=== PATIENT | male | born 1960 | race African-American/Black ===

== ENCOUNTER 2018-01-18 19:27 | Inpatient (IN) | payer MEDICARE, OTHER ==
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
[2018-01-18 21:06] LABS: % EOSINOPHILS 2.2 % (0.0-5.0); % LYMPHOCYTES 32.1 % (20.0-50.0); % MONOCYTES 13.9 % (2.0-10.0); % NEUTROPHILS 51.8 % (40.0-80.0); EOSINOPHILE ABSOLUTE 0.1 Th/cmm (0.1-0.4); HEMATOCRIT 40.5 % (41.0-60); HEMOGLOBIN 13.3 gm/dL (12-16); LYMPHOCYTE ABSOLUTE 2.1 Th/cmm (1.5-3.0); MEAN CELL VOLUME 81.6 fl (80-99); MEAN CORPUSCULAR HEMOGLOBIN 26.8 pg (26.0-30.0); MEAN CORPUSCULAR HGB CONC 32.8 pg (28.0-36.0); MEAN PLATELET VOLUME 10.5 fl; MONOCYTE ABSOLUTE 0.9 Th/cmm (0.3-1.0); NEUTROPHILE ABSOLUTE 3.5 Th/cmm (1.8-8.0); PLATELET COUNT 62 Th/cmm (150-400); RED BLOOD COUNT 4.96 Mil/cmm (4.30-5.70); RED CELL DISTRIBUTION WIDTH 16.4 % (11.5-20.0); WHITE BLOOD COUNT 6.6 Th/cmm (4.8-10.8)
[2018-01-18 21:13] LABS: ANION GAP 17.6 (7.0-16.0); BUN - UREA NITROGEN 24 mg/dL (7-25); CALCIUM SERUM 11.2 mg/dL (8.6-10.3); CARBON DIOXIDE 13.9 mEq/L (21.0-31.0); CHLORIDE 97 mEq/L (98-107); CREATININE - SERUM 1.5 mg/dL (0.7-1.3); GFR AFRICAN-AMERICAN > 60.0 ml/min (>90); GFR NON AFRICAN-AMERICAN 50.9 ml/min; POTASSIUM SERUM 4.5 mEq/L (3.5-5.1); SODIUM SERUM 124 mEq/L (136-145)
[2018-01-18 21:22] LABS: URINE MICROSCOPIC INDICATED? YES; URINE SOURCE RANDOM
[2018-01-18 21:25] LABS: URINE BILIRUBIN NEGATIVE (NEGATIVE); URINE BLOOD SMALL (NEGATIVE); URINE GLUCOSE (UA) >=1000 mg/dL (NEGATIVE); URINE KETONE NEGATIVE (NEGATIVE); URINE LEUKOCYTE ESTERASE NEGATIVE (NEGATIVE); URINE NITRATE NEGATIVE (NEGATIVE); URINE PROTEIN NEGATIVE (NEGATIVE); URINE UROBILINOGEN 0.2 E.U./dL (0.2 - 1.0)
[2018-01-18 21:27] LABS: GLUCOSE 794 mg/dL (70-105)
[2018-01-18 21:28] LABS: URINE CLARITY CLEAR (CLEAR); URINE COLOR YELLOW
[2018-01-18 21:29] LABS: URINE BACTERIA NONE SEEN /hpf (NONE SEEN); URINE EPITHELIAL CELLS NONE SEEN /lpf (FEW); URINE WBC NONE SEEN /hpf (0-5)
[2018-01-18] MEDS ORDERED: Sodium Chloride 0.9% 1,000 ML IV ONE (21:32)
[2018-01-18] MEDS ORDERED: INSULIN HUMAN REGULAR 100 UNITS/ML UNIT SUBQ ONE (21:32)
[2018-01-18 21:36] LABS: AMPHETAMINE URINE NEGATIVE (NEGATIVE); BARBITURATES URINE NEGATIVE (NEGATIVE); BENZODIAZEPINES QUAL URINE NEGATIVE (NEGATIVE); CANNABINOID THC NEGATIVE (NEGATIVE); COCAINE METABOLITE QUAL URINE NEGATIVE (NEGATIVE); METHADONE URINE NEGATIVE (NEGATIVE); METHAMPHETAMINES QUAL URINE NEGATIVE (NEGATIVE); OPIATES (MORPHINE) QUAL. URINE NEGATIVE (NEGATIVE); PHENCYCLIDINE (PCP) URINE NEGATIVE (NEGATIVE); TRICYCLICS (TCA) QUAL. URINE NEGATIVE (NEGATIVE)
[2018-01-18] MEDS ORDERED: INSULIN HUMAN REGULAR 100 UNITS/ML UNIT ONE (21:55)
[2018-01-18 22:09] LABS: AMYLASE SERUM 148 U/L (29-103); LIPASE 179 U/L (11-82)
[2018-01-18 22:32] LABS: ALLEN TEST yes
[2018-01-19] MEDS ORDERED: Haloperidol Lactate 5 mg/mL 1mL Vial IM STA (01:05)
[2018-01-19] MEDS ORDERED: Haloperidol Lactate 5 mg/mL 1mL Vial ONE (01:05)
[2018-01-19] MEDS ORDERED: Sodium Chloride 0.9% 1,000 ML IV SCH ×2 (01:30→11:45)
[2018-01-19] MEDS ORDERED: INSULIN ASPART SLIDING SCALE 100 UNITS/ML UNIT SUBQ SCH (07:30)
--- NOTE | 2018-01-19 08:13 | Diagnostic Imaging Report ---
CHEST X-RAY: AP view INDICATION: Shortness of breath COMPARISON: None FINDINGS: Postsurgical changes are seen with evidence of prior median sternotomy and additional surgical clips along the left upper hemithorax. Suboptimal lung volumes are seen with increased right basal lung markings. Borderline cardiomegaly is noted with tortuous aorta. Degenerative changes of the spine are noted. IMPRESSION: Increased right basal lung markings which may be due to atelectasis versus less likely infiltrate, please correlate clinically. Postsurgical changes. Borderline cardiomegaly with tortuous aorta.
[2018-01-19 08:39] LABS: % BASOPHILS 0.8 % (0.0-2.0); % EOSINOPHILS 3.8 % (0.0-5.0); % LYMPHOCYTES 32.1 % (20.0-50.0); % MONOCYTES 12.3 % (2.0-10.0); EOSINOPHILE ABSOLUTE 0.2 Th/cmm (0.1-0.4); HEMATOCRIT 41.1 % (41.0-60); HEMOGLOBIN 13.8 gm/dL (12-16); LYMPHOCYTE ABSOLUTE 1.7 Th/cmm (1.5-3.0); MEAN CELL VOLUME 79.9 fl (80-99); MEAN CORPUSCULAR HEMOGLOBIN 26.8 pg (26.0-30.0); MEAN CORPUSCULAR HGB CONC 33.5 pg (28.0-36.0); MEAN PLATELET VOLUME 9.8 fl; MONOCYTE ABSOLUTE 0.7 Th/cmm (0.3-1.0); NEUTROPHILE ABSOLUTE 2.7 Th/cmm (1.8-8.0); PLATELET COUNT 74 Th/cmm (150-400); RED BLOOD COUNT 5.14 Mil/cmm (4.30-5.70); WHITE BLOOD COUNT 5.3 Th/cmm (4.8-10.8)
[2018-01-19 09:25] LABS: ALB/GLOB RATIO 0.9 (1.0-1.8); ALBUMIN 3.5 gm/dL (4.2-5.5); ALKALINE PHOSPHATASE 352 U/L (34-104); ANION GAP 15.4 (7.0-16.0); BILIRUBIN,TOTAL 1.2 mg/dL (0.3-1.0); BUN - UREA NITROGEN 23 mg/dL (7-25); CALCIUM SERUM 11.6 mg/dL (8.6-10.3); CARBON DIOXIDE 16.8 mEq/L (21.0-31.0); CHLORIDE 105 mEq/L (98-107); CREATININE - SERUM 1.3 mg/dL (0.7-1.3); GFR AFRICAN-AMERICAN > 60.0 ml/min (>90); GFR NON AFRICAN-AMERICAN > 60.0 ml/min; POTASSIUM SERUM 4.2 mEq/L (3.5-5.1); SGOT 75 U/L (13-39); SGPT/ALT 53 U/L (7-52); SODIUM SERUM 133 mEq/L (136-145); TOTAL PROTEIN,SERUM 7.3 gm/dL (6.0-8.3)
[2018-01-19 09:31] LABS: GLUCOSE 525 mg/dL (70-105)
[2018-01-19] MEDS ORDERED: Sodium Chloride 0.9% 500 ML IV ONE (09:56)
[2018-01-19] MEDS ORDERED: INSULIN ASPART, RECOMBINANT 100 UNITS/ML SUBQ ONE (09:56)
--- NOTE | 2018-01-19 10:23 | Consultation ---
DATE OF CONSULTATION: 01/19/2018 PSYCHIATRIC CONSULTATION PATIENT'S AGE: 57. SEX: Male. PHYSICIAN: Dr. Crow. CHIEF COMPLAINT: Agitation and aggressive behavior. HISTORY OF PRESENT ILLNESS: The patient is a 57-year-old male, who was transferred from long-term because of increased agitation and irritability. The patient has been aggressive and in irritable mood. The patient also had to receive p.r.n. medications to control his behavior and his agitation. Currently, the patient is sedated and he was not able to answer much of my questions because of his sedation at this time. Staff reports that when he is awake, he is aggressive and confused and tries to hit staff. PAST PSYCHIATRIC HISTORY: Not known. PAST MEDICAL HISTORY: The patient was supposed to go to Geropsych unit, but he was admitted to Med/Surg unit because of some medical issues and possible pneumonia. SOCIAL HISTORY: No known alcohol or drug use. MENTAL STATUS EXAM: The patient appears older than his stated age. Sedated. Tries to answer questions, but falls asleep right away. He did not answer question regarding hallucinations or delusions or regarding suicide or homicide. ASSESSMENT: PRIMARY DIAGNOSIS: Unspecified psychosis. TREATMENT PLAN: We will start the patient on Seroquel 100 mg 3 times a day and we will adjust the dose according to response. Also give Ativan on a p.r.n. basis. The patient also may go to [facility] if he continues to be agitated and when medically cleared. Thanks to Dr. Gavin and we will follow up with you. [facility]# [id number]
[2018-01-19] MEDS: NITROGLYCERIN OINT 2% 1 INCH PACKET TP SCH ×3 (12:00→23:53)
--- NOTE | 2018-01-19 13:31 | History & Physical ---
ADMIT DATE: 01/19/2018 PATIENT'S IDENTIFICATION: A 57-year-old male. CHIEF COMPLAINT: Elevated blood sugar. HISTORY OF PRESENT ILLNESS: A 57-year-old resident of [facility] lives in [place] in [place] noted that the patient was agitated. The patient was sent to Emergency Room at [facility]. When patient was evaluated by Emergency Room MD, noted to have blood sugar of 700+ with low sodium and elevated calcium, abnormal liver function tests, as well as metabolic acidosis. The patient was admitted initially to telemetry unit when I was told that the patient's sugars are better. Upon my evaluation, it is noted the patient is more lethargic and the patient needs to be transferred to ICU. His blood sugar results still above 500. PAST MEDICAL HISTORY: Remarkable for: 1. Cirrhosis of liver. 2. Psychotic disorder. 3. Asthma, COPD. 4. History of hepatitis C. 5. History of rhabdomyolysis. 6. Hypertension. 7. Coronary artery disease. 8. History of bypass graft. MEDICATIONS: At the [facility] has been reviewed. ALLERGIES: The patient is not allergic to medication. SOCIAL HISTORY: He is a resident of [facility]. FAMILY MEDICAL HISTORY: Unavailable. REVIEW OF SYSTEMS: Unable to obtain. PHYSICAL EXAMINATION: GENERAL: A 57-year-old old appearing male, lying in the bed. VITAL SIGNS: Temperature 97.8, pulse is 62, respiratory 18, blood pressure 179/101. Upon arrival, currently vital signs, the temperature 98.1, pulse is 72, respiratory rate 18, blood pressure 125/82. HEENT: Normocephalic, atraumatic. Sclerae with some icterus. Pupils are equal and reactive to light. Tongue was dry and coated. No facial asymmetry. NECK: Supple, no JVD, no lymphadenopathy. HEART: Both heart sounds are regular. CHEST: Lung equal in expansion. Mild expiratory wheezing. ABDOMEN: Soft, mild distention noted. No palpable ascites. EXTREMITIES: No edema. NEUROLOGIC: Not following command, opens his eyes. AVAILABLE DIAGNOSTIC DATA: Performed in the Emergency Room as well as today, white count of 5.3, hemoglobin 13.8, platelet count of 74,000. Sodium 133, arrival 124; chloride 105, arrival 97; anion gap 17.6 on arrival, now is 15.4; BUN and creatinine is 23 and 1.3, blood sugars 595, calcium of 11.6. Total bilirubin of 1.2, AST, ALT, alkaline phosphatase is 75, 53 and 352. CPK is 823. Troponin of 0.21. Amylase and lipase 148 and 179. Urine has more than 1000 of glucose, small blood, 2-5 RBCs. Urine drug screen was negative. Chest x-ray done in the Emergency Room remarkable for increased right basilar lung marking represent atelectasis versus infiltrate. EKG has a sinus tachycardia with underlying bundle-branch block, unable to assess. CLINICAL IMPRESSION: 1. Right lower lobe pneumonia. 2. Diabetes mellitus on arrival to Emergency Room consistent with hyperosmolar nonketotic condition. Now, patient has no anion gap acidosis, suspect patient has uncontrolled blood sugar, most likely secondary to underlying pneumonia. 3. Abnormal liver function tests, probably from cirrhosis, though liver function pattern looks obstructive in nature, needs further evaluation. 4. Electrolyte imbalance. 5. Hypercalcemia, needs further evaluation. 6. Psychotic disorder. 7. Ruled out hepatic encephalopathy, considering patient's mental status, patient is very mentally altered. 8. Psychotic disorder. 9. Chronic obstructive pulmonary disease. PLAN: 1. Transfer this patient to ICU. 2. N.p.o. 3. IV fluid. 4. Insulin drip. 5. Cardiology as well as GI consult. 6. Cardiac enzymes. 7. Oxygen. 8. Aspirin. 9. Nitrates. 10. Lactulose. 11. Stat labs, which include ammonia, magnesium, phosphorus. 12. Followup lab. 13. Serial monitoring of electrolytes. 14. Follow labs. 15. Follow consult recommendations. 16. Abdominal ultrasound. 17. Neb and inhalation therapy. 18. Care plan reviewed and discussed with the patient's RN at bedside. JOB# [id number]
[2018-01-19] MEDS ORDERED: D5-0.45NS w/20 mEq KCL 1,000 ML IV SCH (14:00)
[2018-01-19] MEDS: Lactulose 10 Gm/15 mL 30mL UDC PO SCH ×2 (14:00→21:48)
[2018-01-19] MEDS: D5-0.45NS w/20 mEq KCL 1,000 ML IV SCH ×2 (14:30→23:38)
[2018-01-19] MEDS: Albuterol/Ipratropium Neb 3 ML AERS HHN SCH ×2 (16:21→20:28)
[2018-01-19 16:38] LABS: A1C % 10.3 % (4.0-6.0)
[2018-01-19 16:40] LABS: ANION GAP 8.2 (7.0-16.0); BUN - UREA NITROGEN 21 mg/dL (7-25); CALCIUM SERUM 11.4 mg/dL (8.6-10.3); CARBON DIOXIDE 18.7 mEq/L (21.0-31.0); CHLORIDE 111 mEq/L (98-107); GFR AFRICAN-AMERICAN > 60.0 ml/min (>90); GFR NON AFRICAN-AMERICAN > 60.0 ml/min; POTASSIUM SERUM 3.9 mEq/L (3.5-5.1); SODIUM SERUM 134 mEq/L (136-145)
[2018-01-19 16:46] LABS: GLUCOSE 165 mg/dL (70-105)
[2018-01-19 17:35] LABS: MAGNESIUM 1.8 mg/dL (1.9-2.7); PHOSPHOROUS 3.2 mg/dL (2.5-5.0)
--- NOTE | 2018-01-19 19:23 | Consultation ---
DATE OF CONSULTATION: 01/19/2018 GASTROENTEROLOGY CONSULTATION REQUESTING PHYSICIAN: Emigido Gavin M.D. REASON FOR CONSULTATION: Cirrhosis. HISTORY OF PRESENT ILLNESS: A 57-year-old -Citizen Of [place] male with history of alcoholism, admitted for low blood sugars and altered level of consciousness. He has a history of hepatic encephalopathy for which he takes lactulose and rifaximin. We were asked by the patient for his chronic liver disease. PHYSICAL EXAMINATION: As above, also notable for coronary artery disease, status post CABG. MEDICATIONS: Here are DuoNeb nebulizer, insulin sliding scale, lactulose, Ativan, Nitro-Bid, Zosyn, IV fluids with potassium, and rifaximin. ALLERGIES: None. SOCIAL HISTORY: No tobacco, positive alcohol, unknown drug status. FAMILY HISTORY: Noncontributory. REVIEW OF SYSTEMS: As per present illness, otherwise unobtainable. PHYSICAL EXAMINATION: VITAL SIGNS: Temperature of 98.1, blood pressure is 125/82, pulse of 74, respirations 18, and O2 sats 99% on room air. GENERAL: The patient is a well-developed, chronically ill-appearing male who is in no acute distress. HEENT: Sclerae are anicteric. Oropharynx is clear. CARDIOVASCULAR: Regular rate and rhythm. LUNGS: Clear. ABDOMEN: Soft, nontender, nondistended. EXTREMITIES: No clubbing, cyanosis, or edema. RECTAL: Deferred. LABORATORY DATA AND IMAGING: WBC 5.3, hemoglobin 13.8, and platelet count 74. Sodium 134, creatinine 1.0, bilirubin 1.2, AST 75, ALT 53, alkaline phosphatase 352. Albumin 3.5, amylase 148, lipase 179, which is mildly elevated. Urine toxicology screen negative. IMPRESSION: 1. Altered level of consciousness and combativeness, likely due to hepatic encephalopathy and/or other unspecified psychiatric disorder. 2. Decompensated cirrhosis likely from alcohol, but also need to rule out hepatitis C. 3. History of coronary artery disease, status post coronary artery bypass graft. 4. Thrombocytopenia. RECOMMENDATIONS: 1. Check abdominal ultrasound. 2. Check liver labs. 3. Check ammonia level. 4. Continue lactulose and rifaximin. 5. Further recommendations following above studies. Thank you, Dr. Emigdio Gavin for involving us in the care of your patient. If you have any further questions, please call us. [facility]# [id number]
--- NOTE | 2018-01-19 22:11 | Consultation ---
DATE OF CONSULTATION: 01/19/[address] Gavin. HISTORY OF PRESENT ILLNESS: This is a 57-year-old male patient who was transferred to the Emergency Room due [facility]. The patient was found to have blood sugar of more than 700. Hence, the patient is admitted to ICU with insulin drip. 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 FAMILY HISTORY: Unremarkable. SOCIAL HISTORY: The patient has a history of alcohol abuse. ALLERGIES: None. PHYSICAL EXAMINATION: VITAL SIGNS: Blood pressure 130/80, pulse 90, and respirations 28. HEAD: Normocephalic. No lumps or bumps. EYES: Pupils equal, reactive to light. Fundi show AV nicking, sclerae white, conjunctivae pink. NECK: Carotid 2+. Normal upstroke. JVD flat. Thyroid not palpable. Lymph nodes not palpable. CHEST: Shows increased AP diameter. No kyphosis, scoliosis. LUNGS: Bilateral bronchovesicular breath sounds. Occasional wheeze. No rales. HEART: PMI fifth intercostal space with lateral to midclavicular line. S1, S2. No S3, S4, soft systolic murmur. ABDOMEN: Soft. Liver, spleen not palpable. No organomegaly. Bowel sounds active. NEUROLOGIC: No focal neurological deficit. EXTREMITIES: Peripheral pulses 2+. No pedal edema. 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 PLAN: Admit the patient. We will monitor the patient closely. Start the patient on lactulose and continue present management. [facility]# [id number]
[2018-01-20] MEDS: Albuterol/Ipratropium Neb 3 ML AERS HHN SCH ×4 (00:54→19:50)
[2018-01-20] MEDS: Lactulose 10 Gm/15 mL 30mL UDC PO SCH ×4 (01:23→18:59)
[2018-01-20] MEDS: NITROGLYCERIN OINT 2% 1 INCH PACKET TP SCH ×3 (05:42→19:03)
[2018-01-20 06:15] LABS: HEMATOCRIT 38.7 % (41.0-60); HEMOGLOBIN 12.6 gm/dL (12-16); MEAN CELL VOLUME 80.9 fl (80-99); MEAN CORPUSCULAR HEMOGLOBIN 26.4 pg (26.0-30.0); MEAN CORPUSCULAR HGB CONC 32.7 pg (28.0-36.0); MEAN PLATELET VOLUME 9.2 fl; PLATELET COUNT 66 Th/cmm (150-400); RED BLOOD COUNT 4.78 Mil/cmm (4.30-5.70); RED CELL DISTRIBUTION WIDTH 16.4 % (11.5-20.0); WHITE BLOOD COUNT 6.2 Th/cmm (4.8-10.8)
[2018-01-20 06:23] LABS: MANUAL DIFF REQUIRED? YES
[2018-01-20 06:32] LABS: ALB/GLOB RATIO 0.9 (1.0-1.8); ALKALINE PHOSPHATASE 250 U/L (34-104); ANION GAP 10.1 (7.0-16.0); BILIRUBIN,DIRECT 0.95 mg/dL (0.0-0.2); BILIRUBIN,TOTAL 2.7 mg/dL (0.3-1.0); BUN - UREA NITROGEN 17 mg/dL (7-25); CALCIUM SERUM 10.5 mg/dL (8.6-10.3); CARBON DIOXIDE 17.8 mEq/L (21.0-31.0); CHLORIDE 112 mEq/L (98-107); GFR AFRICAN-AMERICAN > 60.0 ml/min (>90); GFR NON AFRICAN-AMERICAN > 60.0 ml/min; GLUCOSE 202 mg/dL (70-105); MAGNESIUM 1.6 mg/dL (1.9-2.7); POTASSIUM SERUM 3.9 mEq/L (3.5-5.1); SGOT 70 U/L (13-39); SGPT/ALT 46 U/L (7-52); SODIUM SERUM 136 mEq/L (136-145); TOTAL PROTEIN,SERUM 6.4 gm/dL (6.0-8.3)
[2018-01-20 07:13] LABS: EOSINOPHIL 3 % (0-5); LYMPHOCYTE 27 % (20-50); MONOCYTE 7 % (2-10); NEUTROPHILS 63 % (40-80); TOTAL CELLS COUNTED 100
[2018-01-20 07:14] LABS: PLATELET ESTIMATE DECREASED PLATELETS (NORMAL)
[2018-01-20 08:13] LABS: ACETAMINOPHEN < 10.0 ug/mL (10.0-30.0)
[2018-01-20] MEDS: D5-0.45NS w/20 mEq KCL 1,000 ML IV SCH (08:16)
[2018-01-20 09:42] LABS: ALLEN TEST YES
[2018-01-20] MEDS: Sodium Chloride 0.45% 1,000 ML IV SCH ×2 (10:00→22:00)
[2018-01-20 10:34] LABS: ANION GAP 8.6 (7.0-16.0); BUN - UREA NITROGEN 16 mg/dL (7-25); CALCIUM SERUM 10.5 mg/dL (8.6-10.3); CARBON DIOXIDE 18.7 mEq/L (21.0-31.0); CHLORIDE 111 mEq/L (98-107); GFR AFRICAN-AMERICAN > 60.0 ml/min (>90); GFR NON AFRICAN-AMERICAN > 60.0 ml/min; GLUCOSE 266 mg/dL (70-105); POTASSIUM SERUM 4.3 mEq/L (3.5-5.1); SODIUM SERUM 134 mEq/L (136-145)
--- NOTE | 2018-01-20 11:11 | Diagnostic Imaging Report ---
Ultrasound abdomen HISTORY: Elevated liver function tests COMPARISON: None Technique: Sonography of the abdomen was performed in multiple planes. FINDINGS: Exam is limited due to patient's medical condition and bowel gas. The liver demonstrates mildly heterogeneous echogenicity. No evidence of focal lesions. The liver measures 17.1 cm. There is suboptimal assessment of the gallbladder. Low-level echoes are seen along the gallbladder neck region. The gallbladder wall measures 4 mm. The common bile duct was not well-visualized. Assessment of the pancreas is limited due to bowel gas. The right kidney measures 10.7 x 6 cm. The Left kidney measures 10.9 x 6.3 seen. No evidence focal lesions or hydronephrosis. The spleen measures 12.7 cm. The visualized portions of the abdominal aorta within normal limits in size. IMPRESSION: Borderline prominent liver with mildly heterogeneous echotexture which may reflect underlying hepatocellular disease. Low level echoes within the gallbladder neck suggestive of gallbladder sludge and probable small gallstones. Mild thickening of the gallbladder wall is also noted. Please correlate with clinical findings. If indicated nuclear medicine HIDA scan may be obtained for further assessment. The common bile duct was not visualized. Borderline prominent spleen.
[2018-01-20] MEDS: INSULIN ASPART, RECOMBINANT 100 UNITS/ML SUBQ SCH ×3 (11:37→21:54)
--- NOTE | 2018-01-20 13:14 | GI Progress Note ---
Subjective - Review of Systems Subjective: MARLEN PO DIET STILL CONFUSED Objective - Results Result Diagrams: 01/20/18 05:30 01/20/18 09:45 Recent Labs: Laboratory Last Values WBC 6.2 Th/cmm (4.8-10.8) 01/20/18 05:30 RBC 4.78 Mil/cmm (4.30-5.70) 01/20/18 05:30 Hgb 12.6 gm/dL (12-16) 01/20/18 05:30 Hct 38.7 % (41.0-60) L 01/20/18 05:30 MCV 80.9 fl (80-99) 01/20/18 05:30 MCH 26.4 pg (26.0-30.0) 01/20/18 05:30 MCHC Differential 32.7 pg (28.0-36.0) 01/20/18 05:30 RDW 16.4 % (11.5-20.0) 01/20/18 05:30 Plt Count 66 Th/cmm (150-400) L 01/20/18 05:30 MPV 9.2 fl 01/20/18 05:30 Neutrophils % 51.0 % (40.0-80.0) 01/19/18 08:00 Lymphocytes % 32.1 % (20.0-50.0) 01/19/18 08:00 Monocytes % 12.3 % (2.0-10.0) H 01/19/18 08:00 Eosinophils % 3.8 % (0.0-5.0) 01/19/18 08:00 Basophils % 0.8 % (0.0-2.0) 01/19/18 08:00 Neutrophils (Manual) 63 % (40-80) 01/20/18 05:30 Lymphocytes 27 % (20-50) 01/20/18 05:30 Monocytes 7 % (2-10) 01/20/18 05:30 Eosinophils 3 % (0-5) 01/20/18 05:30 Platelet Estimate DECREASED PLATELETS (NORMAL) 01/20/18 05:30 Specimen Source Arterial 01/20/18 09:34 Sample Site Left Radial 01/20/18 09:34 pH 7.40 (7.35-7.45) 01/20/18 09:34 pCO2 29.0 mmHg (35.0-45.0) L 01/20/18 09:34 pO2 80.0 mmHg (80.0-100.0) 01/20/18 09:34 HCO3 20.5 mEq/L (20.0-26.0) 01/20/18 09:34 Base Excess -5.6 mEq/L (-3.0-3.0) L 01/20/18 09:34 O2 Saturation 96.0 % (92.0-100.0) 01/20/18 09:34 Baltazar Test YES 01/20/18 09:34 Vent Rate NA 01/20/18 09:34 Inspired O2 21 01/20/18 09:34 Tidal Volume NA 01/20/18 09:34 PEEP NA 01/20/18 09:34 Pressure (ins/psv/peep) NA 01/20/18 09:34 Critical Value E.MULLEN 01/20/18 09:34 Sodium 134 mEq/L (136-145) L 01/20/18 09:45 Potassium 4.3 mEq/L (3.5-5.1) 01/20/18 09:45 Chloride 111 mEq/L (98-107) H 01/20/18 09:45 Carbon Dioxide 18.7 mEq/L (21.0-31.0) L 01/20/18 09:45 Anion Gap 8.6 (7.0-16.0) 01/20/18 09:45 BUN 16 mg/dL (7-25) 01/20/18 09:45 Creatinine 1.0 mg/dL (0.7-1.3) 01/20/18 09:45 Est GFR ( Amer) > 60.0 ml/min (>90) 01/20/18 09:45 Est GFR (Non-Af Amer) > 60.0 ml/min 01/20/18 09:45 BUN/Creatinine Ratio 16.0 01/20/18 09:45 Glucose 266 mg/dL (70-105) H 01/20/18 09:45 POC Glucose 393 MG/DL (70 - 105) H 01/20/18 11:32 Hemoglobin A1c % 10.3 % (4.0-6.0) H 01/18/18 20:51 Calcium 10.5 mg/dL (8.6-10.3) H 01/20/18 09:45 Phosphorus 3.2 mg/dL (2.5-5.0) 01/19/18 12:10 Magnesium 1.6 mg/dL (1.9-2.7) L 01/20/18 05:30 Total Bilirubin 2.7 mg/dL (0.3-1.0) H 01/20/18 05:30 Direct Bilirubin 0.95 mg/dL (0.0-0.2) H 01/20/18 05:30 AST 70 U/L (13-39) H 01/20/18 05:30 ALT 46 U/L (7-52) 01/20/18 05:30 Alkaline Phosphatase 250 U/L (34-104) H 01/20/18 05:30 Ammonia 167 umol/L (16-53) H 01/20/18 05:30 Creatine Kinase 616 U/L (30-223) H 01/19/18 16:00 CK-MB (CK-2) 10.3 ng/mL (0.6-6.3) H 01/19/18 16:00 Troponin I 0.19 ng/mL (0.01-0.05) H* 01/19/18 16:00 B-Natriuretic Peptide 35.1 pg/mL (5.0-100.0) 01/18/18 23:57 Total Protein 6.4 gm/dL (6.0-8.3) 01/20/18 05:30 Albumin 3.0 gm/dL (4.2-5.5) L 01/20/18 05:30 Globulin 3.4 gm/dL 01/20/18 05:30 Albumin/Globulin Ratio 0.9 (1.0-1.8) L 01/20/18 05:30 Amylase 148 U/L (29-103) H 01/18/18 20:51 Lipase 179 U/L (11-82) H 01/18/18 20:51 TSH 3.58 uIU/ml (0.34-5.60) 01/18/18 20:21 PTH Interpretation (()) 01/19/18 12:10 PTH Intact 9 pg/mL (15-65) L 01/19/18 12:10 Calcium (PTH Intact) 11.0 mg/dL (8.7-10.2) H 01/19/18 12:10 Urine Source RANDOM 01/18/18 20:10 Urine Color YELLOW 01/18/18 20:10 Urine Clarity CLEAR (CLEAR) 01/18/18 20:10 Urine pH 7.0 (4.6 - 8.0) 01/18/18 20:10 Ur Specific [place] 1.010 (1.005-1.030) 01/18/18 20:10 Urine Protein NEGATIVE mg/dL (NEGATIVE) 01/18/18 20:10 Urine Glucose (UA) >=1000 mg/dL (NEGATIVE) H 01/18/18 20:10 Urine Ketones NEGATIVE mg/dL (NEGATIVE) 01/18/18 20:10 Urine Blood SMALL (NEGATIVE) H 01/18/18 20:10 Urine Nitrate NEGATIVE (NEGATIVE) 01/18/18 20:10 Urine Bilirubin NEGATIVE (NEGATIVE) 01/18/18 20:10 Urine Urobilinogen 0.2 E.U./dL (0.2 - 1.0) 01/18/18 20:10 Ur Leukocyte Esterase NEGATIVE (NEGATIVE) 01/18/18 20:10 Urine RBC 2-5 /hpf (0-5) H 01/18/18 20:10 Urine WBC NONE SEEN /hpf (0-5) 01/18/18 20:10 Ur Epithelial Cells NONE SEEN /lpf (FEW) 01/18/18 20:10 Urine Bacteria NONE SEEN /hpf (NONE SEEN) 01/18/18 20:10 Urine Opiates Screen NEGATIVE (NEGATIVE) 01/18/18 20:10 Urine Methadone Screen NEGATIVE (NEGATIVE) 01/18/18 20:10 Acetaminophen < 10.0 ug/mL (10.0-30.0) L 01/20/18 05:30 Ur Barbiturates Screen NEGATIVE (NEGATIVE) 01/18/18 20:10 Ur Tricyclics Screen NEGATIVE (NEGATIVE) 01/18/18 20:10 Ur Phencyclidine Scrn NEGATIVE (NEGATIVE) 01/18/18 20:10 Amphetamines Screen NEGATIVE (NEGATIVE) 01/18/18 20:10 U Methamphetamines Scrn NEGATIVE (NEGATIVE) 01/18/18 20:10 U Benzodiazepines Scrn NEGATIVE (NEGATIVE) 01/18/18 20:10 U Cocaine Metab Screen NEGATIVE (NEGATIVE) 01/18/18 20:10 U Cannabinoids Screen NEGATIVE (NEGATIVE) 01/18/18 20:10 RPR NONREACTIVE (NONREACTIVE) 01/18/18 20:21 - Physical Exam Vitals and I&O: Vital Signs Temp 97.4 F 01/20/18 04:00 Pulse 110 01/20/18 12:00 Resp 14 01/20/18 12:00 BP 116/82 01/20/18 11:49 Pulse Ox 100 01/20/18 12:00 Intake & Output 01/19/18 01/20/18 01/20/18 18:59 06:59 18:59 Intake Total 038.826 2622.190 552.084 Output Total 1150 Balance 149.188 815.190 552.084 Weight (lbs) 82.639 kg Intake: Intake, IV Amount 239.213 6409.190 552.084 D5-0.45NS w/20 mEq KCL 1, 1795.833 552.084 000 ml @ 125 mls/hr IV . Q8H [facility] Rx#:[id number] Insulin Human Regular 100 7.521 19.357 units In Sodium Chloride 0.9% 100 ml @ 4 UNITS/HR 4.04 mls/hr IV Q2HR [facility] Rx#:[id number] Piperacillin Sodium/ 150 Tazobact 2.25 gm In Sodium Chloride 0.9% 50 ml @ 100 mls/hr IV Q8HR [facility] Rx#:[id number] Sodium Chloride 0.9% 1, 141.667 000 ml @ 100 mls/hr IV . Q10H [facility] Rx#:[id number] Oral 0 Output: Urine 1150 Other: # Bowel Movements 0 Active Medications: Current Medications Albuterol/Ipratropium (Duoneb Neb) 3 ml HHN Q6HRT [facility] Stop: 03/20/18 12:59 Last Admin: 01/20/18 08:20 Dose: 3 ml Piperacillin Sod/Tazobactam (Sod 2.25 gm/ Sodium Chloride) 50 mls @ 100 mls/hr IV Q8HR [facility] Stop: 03/20/18 12:59 Last Admin: 01/20/18 12:40 Dose: 100 mls/hr Sodium Chloride (Nacl 0.45%) 1,000 mls @ 100 mls/hr IV .Q10H [facility] Stop: 03/21/18 09:27 Last Admin: 01/20/18 10:00 Dose: 100 mls/hr Insulin Aspart (Novolog) 0 units SUBQ ACHS [facility] PRN Reason: Protocol Stop: 03/21/18 11:29 Last Admin: 01/20/18 11:37 Dose: 11 units Insulin Detemir (Levemir Insulin) 14 units SUBQ DAILY [facility] PRN Reason: Protocol Stop: 03/22/18 08:59 Lactulose (Cephulac) 45 gm PO Q6HRT [facility] Stop: 03/21/18 12:59 Last Admin: 01/20/18 12:41 Dose: 45 gm Lorazepam (Ativan) 1 mg PO Q4HR PRN; Protocol PRN Reason: Anxiety Stop: 03/20/18 10:08 Nitroglycerin (Nitro-Bid) 1 inch TP Q6HR [facility] Stop: 03/20/18 11:59 Last Admin: 01/20/18 11:49 Dose: 1 inch Quetiapine Fumarate (Seroquel) 100 mg PO BID [facility] PRN Reason: Protocol Stop: 03/21/18 08:59 Last Admin: 01/20/18 10:10 Dose: 100 mg Rifaximin (Xifaxan) 550 mg PO BID [facility] Stop: 03/20/18 16:59 Last Admin: 01/20/18 09:00 Dose: Not Given Assessment/Plan - Assessment Assessment: 57 YO MALE WITH ETOH CIRRHOSIS HAS HEPATIC ENCEPHALOPATHY IRMA SHOWED GALLSTONES 1.CONT XIFAXAN AND LACTULOSE 2.CHECK HIDA
[2018-01-20 13:55] LABS: BUN - UREA NITROGEN 18 mg/dL (7-25); CALCIUM SERUM 10.2 mg/dL (8.6-10.3); CARBON DIOXIDE 17.4 mEq/L (21.0-31.0); CHLORIDE 109 mEq/L (98-107); GFR AFRICAN-AMERICAN > 60.0 ml/min (>90); GFR NON AFRICAN-AMERICAN > 60.0 ml/min; POTASSIUM SERUM 4.4 mEq/L (3.5-5.1); SODIUM SERUM 132 mEq/L (136-145)
[2018-01-20 14:03] LABS: GLUCOSE 369 mg/dL (70-105)
[2018-01-20] MEDS ORDERED: Probiotic Screen MC PRN (14:15)
[2018-01-20] MEDS ORDERED: Mag Sulfate 2gm/50mL Premix 2 GM/50 ML BAG IV ONE (17:00)
--- NOTE | 2018-01-20 20:35 | Progress Notes ---
DATE: SUBJECTIVE: Chart reviewed and the patient interviewed. Also, discussed the patient's condition with the staff and reviewed records and labs. The patient was extremely agitated and irritable and aggressive with the staff last night and he was not able to follow any of staff directions. The patient had to be given a dose of Ativan in order to calm him down. Yesterday, Dr. Gavin did stop his Seroquel and is not clear to me the reason for doing so, but the patient became agitated after Seroquel was stopped. He also is still restless and he still needs lots of redirections. Also, still resisting care. ASSESSMENT: The patient is still agitated and psychotic. TREATMENT PLAN: Continue to monitor his behavior and his condition closely. Also, continue Ativan on a p.r.n. basis. Also, will restart Seroquel, but in a dose of 100 mg twice a day and we will continue to follow up. JOB# [id number]
[2018-01-21] MEDS: NITROGLYCERIN OINT 2% 1 INCH PACKET TP SCH ×4 (00:22→17:57)
[2018-01-21] MEDS: Lactulose 10 Gm/15 mL 30mL UDC PO SCH ×5 (00:23→18:55)
[2018-01-21] MEDS: Albuterol/Ipratropium Neb 3 ML AERS HHN SCH ×4 (01:15→19:11)
--- NOTE | 2018-01-21 01:26 | Progress Notes ---
DATE: 01/20/2018 PROGRESS NOTE PATIENT IDENTIFICATION: A 57-year-old male patient. SUBJECTIVE: The patient is seen and examined in ICU bed 5. The patient is alert, awake, asking for food. The patient denies any chest pain, shortness of breath, palpitation, dizziness, nausea, vomiting or diarrhea. OBJECTIVE: VITAL SIGNS: Temperature 98, pulse is 99, respiratory rate is 18, blood pressure 146/93, and room O2 sat was 100%. HEENT: Normocephalic, atraumatic. Pupils reactive to light. Tongue was pink and coated. NECK: Supple, no JVD. No lymphadenopathy or thyromegaly. HEART: Both heart sounds are regular. CHEST: Lung equal in expansion. No expiratory wheezing. ABDOMEN: Soft. No palpable ascites. Bowel sounds are present. EXTREMITIES: No edema. NEUROLOGIC: Alert, awake, follows commands. No gross neuro deficit noted. AVAILABLE DIAGNOSTIC DATA: White count of 6.2, hemoglobin 12.6, and platelet count of 66. Sodium 136, potassium 3.9, chloride 112, and CO2 of 17.8. Anion gap is 10.1. BUN and creatinine 17 and 1.0, calcium of 10.5, glucose of 202, early childhood teacher 196, AST and ALT 70 and 46 and alkaline phosphatase of 250, Troponin last was 0.19. Tylenol level was just 0.10. Abdominal ultrasound is unavailable for my review. Ammonia level reported this morning is 167. CLINICAL IMPRESSION: 1. Uncontrolled diabetes mellitus. Blood sugars are under acceptable range, currently on insulin drip. 2. Thrombocytopenia secondary to cirrhosis of liver. 3. Hypercalcemia. 4. Hepatic encephalopathy with ammonia of 167. 5. Psychotic disorder. 6. Hypercalcemia. 7. Cirrhosis of liver. 8. Elevated troponin, most likely secondary to sepsis. 9. Right lower lobe pneumonia. PLAN: 1. Change IV fluid. 2. P.o. diet. 3. Decrease Glucoscan. 4. Discontinue insulin drip. 5. Lactulose. 6. Empirical antibiotic. 7. Await ultrasound. 8. Correct electrolytes. 9. Await further lab test. 10. Follow lab. 11. Follow consult recommendation. 12. Psychotic evaluation and management deferred to psychiatrist. 13. Care of plan reviewed and discussed with RN as well. JOB# [id number]
[2018-01-21 05:03] LABS: HEMATOCRIT 35.3 % (41.0-60); HEMOGLOBIN 11.7 gm/dL (12-16); MANUAL DIFF REQUIRED? YES; MEAN CORPUSCULAR HEMOGLOBIN 26.9 pg (26.0-30.0); MEAN CORPUSCULAR HGB CONC 33.2 pg (28.0-36.0); MEAN PLATELET VOLUME 9.6 fl; PLATELET COUNT 53 Th/cmm (150-400); RED BLOOD COUNT 4.36 Mil/cmm (4.30-5.70); RED CELL DISTRIBUTION WIDTH 16.3 % (11.5-20.0); WHITE BLOOD COUNT 5.7 Th/cmm (4.8-10.8)
[2018-01-21 05:17] LABS: ALB/GLOB RATIO 0.8 (1.0-1.8); ALBUMIN 2.7 gm/dL (4.2-5.5); ALKALINE PHOSPHATASE 177 U/L (34-104); ANION GAP 10.1 (7.0-16.0); BILIRUBIN,TOTAL 2.4 mg/dL (0.3-1.0); BUN - UREA NITROGEN 16 mg/dL (7-25); CALCIUM SERUM 10.3 mg/dL (8.6-10.3); CARBON DIOXIDE 17.7 mEq/L (21.0-31.0); CHLORIDE 110 mEq/L (98-107); CREATININE - SERUM 1.2 mg/dL (0.7-1.3); GFR AFRICAN-AMERICAN > 60.0 ml/min (>90); GFR NON AFRICAN-AMERICAN > 60.0 ml/min; MAGNESIUM 1.7 mg/dL (1.9-2.7); POTASSIUM SERUM 3.8 mEq/L (3.5-5.1); SGOT 59 U/L (13-39); SGPT/ALT 41 U/L (7-52); SODIUM SERUM 134 mEq/L (136-145); TOTAL PROTEIN,SERUM 5.9 gm/dL (6.0-8.3)
[2018-01-21 05:25] LABS: GLUCOSE 268 mg/dL (70-105)
[2018-01-21 06:06] LABS: EOSINOPHIL 12 % (0-5); LYMPHOCYTE 36 % (20-50); MONOCYTE 7 % (2-10); NEUTROPHILS 45 % (40-80); TOTAL CELLS COUNTED 100
[2018-01-21 06:07] LABS: PLATELET ESTIMATE SLIGHT DECREASED (NORMAL)
[2018-01-21] MEDS: INSULIN ASPART, RECOMBINANT 100 UNITS/ML SUBQ SCH ×4 (06:33→21:24)
--- NOTE | 2018-01-21 08:19 | Diagnostic Imaging Report ---
Exam: HIDA scan. Diagnosis gallstones. Findings: Utilizing 5.2 mCi of technetium 99 Choletec examination of liver and biliary tree was obtained. The study demonstrates normal uptake of the radiopharmaceutical throughout the liver parenchyma. The gallbladder is visualized at the 20 minutes with excretion right radiopharmaceutical in the common bile duct at the 45 minutes and the visualization of the small bowel at the 2 hours. IMPRESSION: Normal HIDA scan Please note that the finding were updated from the preliminary report January 20, 2018
[2018-01-21] MEDS: Lactobacillus Rhamnosus GG 15 Billion CFU CAP.SPRINK PO SCH (08:31)
[2018-01-21] MEDS ORDERED: Insulin Detemir 100 units/mL 10mL Vial SUBQ SCH (09:00)
--- NOTE | 2018-01-21 09:10 | GI Progress Note ---
Subjective - Review of Systems Subjective: AWAKE STILL CONFUSED DENIES ABD PAIN Objective - Results Result Diagrams: 01/21/18 04:10 01/21/18 04:10 Recent Labs: Laboratory Last Values WBC 5.7 Th/cmm (4.8-10.8) 01/21/18 04:10 RBC 4.36 Mil/cmm (4.30-5.70) 01/21/18 04:10 Hgb 11.7 gm/dL (12-16) L 01/21/18 04:10 Hct 35.3 % (41.0-60) L 01/21/18 04:10 MCV 81.0 fl (80-99) 01/21/18 04:10 MCH 26.9 pg (26.0-30.0) 01/21/18 04:10 MCHC Differential 33.2 pg (28.0-36.0) 01/21/18 04:10 RDW 16.3 % (11.5-20.0) 01/21/18 04:10 Plt Count 53 Th/cmm (150-400) L 01/21/18 04:10 MPV 9.6 fl 01/21/18 04:10 Neutrophils % 51.0 % (40.0-80.0) 01/19/18 08:00 Lymphocytes % 32.1 % (20.0-50.0) 01/19/18 08:00 Monocytes % 12.3 % (2.0-10.0) H 01/19/18 08:00 Eosinophils % 3.8 % (0.0-5.0) 01/19/18 08:00 Basophils % 0.8 % (0.0-2.0) 01/19/18 08:00 Neutrophils (Manual) 45 % (40-80) 01/21/18 04:10 Lymphocytes 36 % (20-50) 01/21/18 04:10 Monocytes 7 % (2-10) 01/21/18 04:10 Eosinophils 12 % (0-5) H 01/21/18 04:10 Platelet Estimate SLIGHT DECREASED (NORMAL) 01/21/18 04:10 Specimen Source Arterial 01/20/18 09:34 Sample Site Left Radial 01/20/18 09:34 pH 7.40 (7.35-7.45) 01/20/18 09:34 pCO2 29.0 mmHg (35.0-45.0) L 01/20/18 09:34 pO2 80.0 mmHg (80.0-100.0) 01/20/18 09:34 HCO3 20.5 mEq/L (20.0-26.0) 01/20/18 09:34 Base Excess -5.6 mEq/L (-3.0-3.0) L 01/20/18 09:34 O2 Saturation 96.0 % (92.0-100.0) 01/20/18 09:34 Baltazar Test YES 01/20/18 09:34 Vent Rate NA 01/20/18 09:34 Inspired O2 21 01/20/18 09:34 Tidal Volume NA 01/20/18 09:34 PEEP NA 01/20/18 09:34 Pressure (ins/psv/peep) NA 01/20/18 09:34 Critical Value E.MULLEN 01/20/18 09:34 Sodium 134 mEq/L (136-145) L 01/21/18 04:10 Potassium 3.8 mEq/L (3.5-5.1) 01/21/18 04:10 Chloride 110 mEq/L (98-107) H 01/21/18 04:10 Carbon Dioxide 17.7 mEq/L (21.0-31.0) L 01/21/18 04:10 Anion Gap 10.1 (7.0-16.0) 01/21/18 04:10 BUN 16 mg/dL (7-25) 01/21/18 04:10 Creatinine 1.2 mg/dL (0.7-1.3) 01/21/18 04:10 Est GFR ( Amer) > 60.0 ml/min (>90) 01/21/18 04:10 Est GFR (Non-Af Amer) > 60.0 ml/min 01/21/18 04:10 BUN/Creatinine Ratio 13.3 01/21/18 04:10 Glucose 268 mg/dL (70-105) H D 01/21/18 04:10 POC Glucose 339 MG/DL (70 - 105) H 01/20/18 21:13 Hemoglobin A1c % 10.3 % (4.0-6.0) H 01/18/18 20:51 Calcium 10.3 mg/dL (8.6-10.3) 01/21/18 04:10 Phosphorus 3.2 mg/dL (2.5-5.0) 01/19/18 12:10 Magnesium 1.7 mg/dL (1.9-2.7) L 01/21/18 04:10 Total Bilirubin 2.4 mg/dL (0.3-1.0) H 01/21/18 04:10 Direct Bilirubin 0.95 mg/dL (0.0-0.2) H 01/20/18 05:30 AST 59 U/L (13-39) H 01/21/18 04:10 ALT 41 U/L (7-52) 01/21/18 04:10 Alkaline Phosphatase 177 U/L (34-104) H 01/21/18 04:10 Ammonia 133 umol/L (16-53) H 01/21/18 04:10 Creatine Kinase 616 U/L (30-223) H 01/19/18 16:00 CK-MB (CK-2) 10.3 ng/mL (0.6-6.3) H 01/19/18 16:00 Troponin I 0.19 ng/mL (0.01-0.05) H* 01/19/18 16:00 B-Natriuretic Peptide 35.1 pg/mL (5.0-100.0) 01/18/18 23:57 Total Protein 5.9 gm/dL (6.0-8.3) L 01/21/18 04:10 Albumin 2.7 gm/dL (4.2-5.5) L 01/21/18 04:10 Globulin 3.2 gm/dL 01/21/18 04:10 Albumin/Globulin Ratio 0.8 (1.0-1.8) L 01/21/18 04:10 Amylase 148 U/L (29-103) H 01/18/18 20:51 Lipase 179 U/L (11-82) H 01/18/18 20:51 TSH 3.58 uIU/ml (0.34-5.60) 01/18/18 20:21 PTH Interpretation (()) 01/19/18 12:10 PTH Intact 9 pg/mL (15-65) L 01/19/18 12:10 Calcium (PTH Intact) 11.0 mg/dL (8.7-10.2) H 01/19/18 12:10 Urine Source RANDOM 01/18/18 20:10 Urine Color YELLOW 01/18/18 20:10 Urine Clarity CLEAR (CLEAR) 01/18/18 20:10 Urine pH 7.0 (4.6 - 8.0) 01/18/18 20:10 Ur Specific [place] 1.010 (1.005-1.030) 01/18/18 20:10 Urine Protein NEGATIVE mg/dL (NEGATIVE) 01/18/18 20:10 Urine Glucose (UA) >=1000 mg/dL (NEGATIVE) H 01/18/18 20:10 Urine Ketones NEGATIVE mg/dL (NEGATIVE) 01/18/18 20:10 Urine Blood SMALL (NEGATIVE) H 01/18/18 20:10 Urine Nitrate NEGATIVE (NEGATIVE) 01/18/18 20:10 Urine Bilirubin NEGATIVE (NEGATIVE) 01/18/18 20:10 Urine Urobilinogen 0.2 E.U./dL (0.2 - 1.0) 01/18/18 20:10 Ur Leukocyte Esterase NEGATIVE (NEGATIVE) 01/18/18 20:10 Urine RBC 2-5 /hpf (0-5) H 01/18/18 20:10 Urine WBC NONE SEEN /hpf (0-5) 01/18/18 20:10 Ur Epithelial Cells NONE SEEN /lpf (FEW) 01/18/18 20:10 Urine Bacteria NONE SEEN /hpf (NONE SEEN) 01/18/18 20:10 Urine Opiates Screen NEGATIVE (NEGATIVE) 01/18/18 20:10 Urine Methadone Screen NEGATIVE (NEGATIVE) 01/18/18 20:10 Acetaminophen < 10.0 ug/mL (10.0-30.0) L 01/20/18 05:30 Ur Barbiturates Screen NEGATIVE (NEGATIVE) 01/18/18 20:10 Ur Tricyclics Screen NEGATIVE (NEGATIVE) 01/18/18 20:10 Ur Phencyclidine Scrn NEGATIVE (NEGATIVE) 01/18/18 20:10 Amphetamines Screen NEGATIVE (NEGATIVE) 01/18/18 20:10 U Methamphetamines Scrn NEGATIVE (NEGATIVE) 01/18/18 20:10 U Benzodiazepines Scrn NEGATIVE (NEGATIVE) 01/18/18 20:10 U Cocaine Metab Screen NEGATIVE (NEGATIVE) 01/18/18 20:10 U Cannabinoids Screen NEGATIVE (NEGATIVE) 01/18/18 20:10 RPR NONREACTIVE (NONREACTIVE) 01/18/18 20:21 - Physical Exam Vitals and I&O: Vital Signs Temp 97.8 F 01/21/18 04:00 Pulse 109 01/21/18 07:18 Resp 18 01/21/18 07:18 BP 130/90 01/21/18 07:00 Pulse Ox 100 01/21/18 07:18 Intake & Output 01/20/18 01/21/18 01/21/18 18:59 06:59 18:59 Intake Total 9528.032 3635 Output Total 1000 600 Balance 318.878 6560 Weight (lbs) 82.554 kg 94.347 kg Intake: Intake, IV Amount 346.118 9119 D5-0.45NS w/20 mEq KCL 1, 552.084 000 ml @ 125 mls/hr IV . Q8H [facility] Rx#:[id number] Piperacillin Sodium/ 100 Tazobact 2.25 gm In Sodium Chloride 0.9% 50 ml @ 100 mls/hr IV Q8HR [facility] Rx#:[id number] Sodium Chloride 0.45% 1, 1875 000 ml @ 100 mls/hr IV . Q10H [facility] Rx#:[id number] Oral 600 250 Output: Urine 1000 600 Active Medications: Current Medications Albuterol/Ipratropium (Duoneb Neb) 3 ml HHN Q6HRT [facility] Stop: 03/20/18 12:59 Last Admin: 01/21/18 07:18 Dose: 3 ml Piperacillin Sod/Tazobactam (Sod 2.25 gm/ Sodium Chloride) 50 mls @ 100 mls/hr IV Q8HR [facility] Stop: 03/20/18 12:59 Last Admin: 01/21/18 05:14 Dose: 100 mls/hr Sodium Chloride (Nacl 0.45%) 1,000 mls @ 100 mls/hr IV .Q10H [facility] Stop: 03/21/18 09:27 Last Infusion: 01/21/18 06:45 Dose: 100 mls/hr Insulin Aspart (Novolog) 0 units SUBQ ACHS [facility] PRN Reason: Protocol Stop: 03/21/18 11:29 Last Admin: 01/21/18 06:33 Dose: 5 units Insulin Detemir (Levemir Insulin) 14 units SUBQ DAILY [facility] PRN Reason: Protocol Stop: 03/22/18 08:59 Lactobacillus Rhamnosus (Culturelle 15b) 1 each PO DAILY [facility] Stop: 03/22/18 08:59 Last Admin: 01/21/18 08:31 Dose: 1 each Lactulose (Cephulac) 45 gm PO Q6HRT [facility] Stop: 03/21/18 12:59 Last Admin: 01/21/18 08:34 Dose: 45 gm Lorazepam (Ativan) 1 mg PO Q4HR PRN; Protocol PRN Reason: Anxiety Stop: 03/20/18 10:08 Miscellaneous (Probiotic Screen) 1 ea [facility] PRN PRN PRN Reason: PROTOCOL Stop: 03/21/18 14:14 Nitroglycerin (Nitro-Bid) 1 inch TP Q6HR [facility] Stop: 03/20/18 11:59 Last Admin: 01/21/18 05:15 Dose: 1 inch Quetiapine Fumarate (Seroquel) 100 mg PO BID [facility] PRN Reason: Protocol Stop: 03/21/18 08:59 Last Admin: 01/21/18 08:31 Dose: 100 mg Rifaximin (Xifaxan) 550 mg PO BID [facility] Stop: 03/20/18 16:59 Last Admin: 01/21/18 08:31 Dose: 550 mg Assessment/Plan - Assessment Assessment: 57 YO MALE WITH ETOH CIRRHOSIS HAS HEPATIC ENCEPHALOPATHY IRMA SHOWED GALLSTONES BUT HIDA SCAN WAS NEGATIVE - PT IS ASYMPTOMATIC 1.CONT XIFAXAN AND LACTULOSE 2.CONSIDER SUKHDEEP IN THE FUTURE IF SYMPTOMATIC
--- NOTE | 2018-01-21 10:47 | Progress Notes ---
DATE: 01/21/2018 SUBJECTIVE: The patient seen and examined. The patient is lying in the bed. The patient is alert, awake, oriented, eating his food. The patient denies any chest pain, shortness of breath, palpitation, or dizziness. PHYSICAL EXAMINATION: VITAL SIGNS: Temperature 98, pulse is 100, respiratory rate 18, blood pressure 130/90. HEENT: No facial asymmetry. Poor dentition noted. NECK: Supple. No JVD. HEART: Regular. CHEST: Equal in expansion. No expiratory wheezing. ABDOMEN: Soft. No guarding or rigidity. Bowel sounds are present. No palpable mass. EXTREMITIES: No edema. AVAILABLE DIAGNOSTIC DATA: White count of 5.7, hemoglobin 11.7, platelet count of 53,000, 12% eosinophil. Sodium 134, potassium 3.8, chloride 110, CO2 17.7, glucose of 268, calcium is 10.3, magnesium 1.7, total bilirubin is 2.4, ALT came down to 59, 41 and 171 respectively. The patient did have HIDA scan done, which revealed normal HIDA scan at this time. CLINICAL IMPRESSION: 1. Altered mental status significantly improved. 2. Hypercalcemia, resolved. 3. Abnormal abdominal ultrasound with normal HIDA scan. 4. Right lower lobe pneumonia. 5. Psychotic disorder. 6. Hepatic encephalopathy. 7. Cirrhosis of liver. 8. Thrombocytopenia is slightly worsened than before. PLAN: 1. Transfer the patient to telemetry unit. 2. Adjust the dose of insulin. 3. Increase lactulose. 4. Thrombocytopenia workup. 5. Correct electrolytes. 6. PT, OT. 7. General nursing care. 8. Psych followup. 9. Follow up on lab. 10. Care plan reviewed and discussed. JOB# [id number]
[2018-01-21] MEDS: Sodium Chloride 0.45% 1,000 ML IV SCH (12:43)
[2018-01-21] MEDS ORDERED: Mag Sulfate 2gm/50mL Premix 2 GM/50 ML BAG IV ONE (14:32)
[2018-01-21] MEDS ORDERED: Sodium Chloride 0.9% 500 ML IV SCH (20:15)
--- NOTE | 2018-01-21 22:27 | Progress Notes ---
DATE: 01/21/[address] Crow. Case was discussed with staff of the patient, reviewed records. The patient is in ICU. Continues to be agitated, confused at times. He is demented, unable to participate in meaningful conversation or make safe plan for self-care. The patient continues to be restless at times. The patient is unable to tell me his age, why he is here. He is unpredictable, impulsive. Apparently, Dr. Gavin did discontinue his Seroquel 2 days ago; however, Dr. Crow ordered him to be on Ativan as needed and he is back on Seroquel that was started yesterday 100 mg twice a day. Thank you very much for allowing me to participate in the care of this most interesting gentleman. JOB# [id number]
[2018-01-22] MEDS: Diltiazem 30 mg Tab PO SCH ×4 (00:22→18:00)
[2018-01-22] MEDS: Lactulose 10 Gm/15 mL 30mL UDC PO SCH ×4 (00:36→18:00)
[2018-01-22] MEDS: Albuterol/Ipratropium Neb 3 ML AERS HHN SCH ×4 (00:44→18:45)
[2018-01-22 05:23] LABS: BASOPHILE ABSOLUTE 0.2 Th/cumm (0-0.2); EOSINOPHILE ABSOLUTE 0.2 Th/cmm (0.1-0.4); HEMATOCRIT 36.9 % (41.0-60); HEMOGLOBIN 12.2 gm/dL (12-16); LYMPHOCYTE ABSOLUTE 2.1 Th/cmm (1.5-3.0); MANUAL DIFF REQUIRED? YES; MEAN CELL VOLUME 80.9 fl (80-99); MEAN CORPUSCULAR HEMOGLOBIN 26.8 pg (26.0-30.0); MEAN CORPUSCULAR HGB CONC 33.1 pg (28.0-36.0); MEAN PLATELET VOLUME 9.5 fl; PLATELET COUNT 70 Th/cmm (150-400); RED BLOOD COUNT 4.56 Mil/cmm (4.30-5.70); RED CELL DISTRIBUTION WIDTH 16.5 % (11.5-20.0); WHITE BLOOD COUNT 6.5 Th/cmm (4.8-10.8)
[2018-01-22 05:45] LABS: ALB/GLOB RATIO 0.8 (1.0-1.8); ALBUMIN 2.8 gm/dL (4.2-5.5); ALKALINE PHOSPHATASE 172 U/L (34-104); BILIRUBIN,TOTAL 1.6 mg/dL (0.3-1.0); BUN - UREA NITROGEN 18 mg/dL (7-25); CALCIUM SERUM 10.6 mg/dL (8.6-10.3); CARBON DIOXIDE 18.7 mEq/L (21.0-31.0); CHLORIDE 110 mEq/L (98-107); CREATININE - SERUM 1.1 mg/dL (0.7-1.3); GFR AFRICAN-AMERICAN > 60.0 ml/min (>90); GFR NON AFRICAN-AMERICAN > 60.0 ml/min; GLUCOSE 151 mg/dL (70-105); MAGNESIUM 1.6 mg/dL (1.9-2.7); POTASSIUM SERUM 3.7 mEq/L (3.5-5.1); SGOT 64 U/L (13-39); SGPT/ALT 43 U/L (7-52); SODIUM SERUM 133 mEq/L (136-145); TOTAL PROTEIN,SERUM 6.5 gm/dL (6.0-8.3)
[2018-01-22] MEDS: INSULIN ASPART, RECOMBINANT 100 UNITS/ML SUBQ SCH ×4 (07:01→21:00)
[2018-01-22 07:03] LABS: BASOPHIL 1 % (0-3); EOSINOPHIL 7 % (0-5); LYMPHOCYTE 37 % (20-50); MONOCYTE 12 % (2-10); NEUTROPHILS 43 % (40-80); PLATELET ESTIMATE DECREASED PLATELETS (NORMAL); TOTAL CELLS COUNTED 100
--- NOTE | 2018-01-22 08:22 | GI Progress Note ---
Subjective - Review of Systems Subjective: AWAKE STILL CONFUSED DENIES ABD PAIN Objective - Results Result Diagrams: 01/22/18 05:07 01/22/18 05:07 Recent Labs: Laboratory Last Values WBC 6.5 Th/cmm (4.8-10.8) 01/22/18 05:07 RBC 4.56 Mil/cmm (4.30-5.70) 01/22/18 05:07 Hgb 12.2 gm/dL (12-16) 01/22/18 05:07 Hct 36.9 % (41.0-60) L 01/22/18 05:07 MCV 80.9 fl (80-99) 01/22/18 05:07 MCH 26.8 pg (26.0-30.0) 01/22/18 05:07 MCHC Differential 33.1 pg (28.0-36.0) 01/22/18 05:07 RDW 16.5 % (11.5-20.0) 01/22/18 05:07 Plt Count 70 Th/cmm (150-400) L D 01/22/18 05:07 MPV 9.5 fl 01/22/18 05:07 Neutrophils % 51.0 % (40.0-80.0) 01/19/18 08:00 Lymphocytes % 32.1 % (20.0-50.0) 01/19/18 08:00 Monocytes % 12.3 % (2.0-10.0) H 01/19/18 08:00 Eosinophils % 3.8 % (0.0-5.0) 01/19/18 08:00 Basophils % 0.8 % (0.0-2.0) 01/19/18 08:00 Neutrophils (Manual) 43 % (40-80) 01/22/18 05:07 Lymphocytes 37 % (20-50) 01/22/18 05:07 Monocytes 12 % (2-10) H 01/22/18 05:07 Eosinophils 7 % (0-5) H 01/22/18 05:07 Basophils 1 % (0-3) 01/22/18 05:07 Platelet Estimate DECREASED PLATELETS (NORMAL) 01/22/18 05:07 Specimen Source Arterial 01/20/18 09:34 Sample Site Left Radial 01/20/18 09:34 pH 7.40 (7.35-7.45) 01/20/18 09:34 pCO2 29.0 mmHg (35.0-45.0) L 01/20/18 09:34 pO2 80.0 mmHg (80.0-100.0) 01/20/18 09:34 HCO3 20.5 mEq/L (20.0-26.0) 01/20/18 09:34 Base Excess -5.6 mEq/L (-3.0-3.0) L 01/20/18 09:34 O2 Saturation 96.0 % (92.0-100.0) 01/20/18 09:34 Baltazar Test YES 01/20/18 09:34 Vent Rate NA 01/20/18 09:34 Inspired O2 21 01/20/18 09:34 Tidal Volume NA 01/20/18 09:34 PEEP NA 01/20/18 09:34 Pressure (ins/psv/peep) NA 01/20/18 09:34 Critical Value E.MULLEN 01/20/18 09:34 Sodium 133 mEq/L (136-145) L 01/22/18 05:07 Potassium 3.7 mEq/L (3.5-5.1) 01/22/18 05:07 Chloride 110 mEq/L (98-107) H 01/22/18 05:07 Carbon Dioxide 18.7 mEq/L (21.0-31.0) L 01/22/18 05:07 Anion Gap 8.0 (7.0-16.0) 01/22/18 05:07 BUN 18 mg/dL (7-25) 01/22/18 05:07 Creatinine 1.1 mg/dL (0.7-1.3) 01/22/18 05:07 Est GFR ( Amer) > 60.0 ml/min (>90) 01/22/18 05:07 Est GFR (Non-Af Amer) > 60.0 ml/min 01/22/18 05:07 BUN/Creatinine Ratio 16.4 01/22/18 05:07 Glucose 151 mg/dL (70-105) H 01/22/18 05:07 POC Glucose 288 MG/DL (70 - 105) H 01/21/18 21:02 Hemoglobin A1c % 10.3 % (4.0-6.0) H 01/18/18 20:51 Calcium 10.6 mg/dL (8.6-10.3) H 01/22/18 05:07 Phosphorus 3.2 mg/dL (2.5-5.0) 01/19/18 12:10 Magnesium 1.6 mg/dL (1.9-2.7) L 01/22/18 05:07 Total Bilirubin 1.6 mg/dL (0.3-1.0) H 01/22/18 05:07 Direct Bilirubin 0.95 mg/dL (0.0-0.2) H 01/20/18 05:30 AST 64 U/L (13-39) H 01/22/18 05:07 ALT 43 U/L (7-52) 01/22/18 05:07 Alkaline Phosphatase 172 U/L (34-104) H 01/22/18 05:07 Ammonia 100 umol/L (16-53) H 01/22/18 05:07 Creatine Kinase 616 U/L (30-223) H 01/19/18 16:00 CK-MB (CK-2) 10.3 ng/mL (0.6-6.3) H 01/19/18 16:00 Troponin I 0.19 ng/mL (0.01-0.05) H* 01/19/18 16:00 B-Natriuretic Peptide 35.1 pg/mL (5.0-100.0) 01/18/18 23:57 Total Protein 6.5 gm/dL (6.0-8.3) 01/22/18 05:07 Albumin 2.8 gm/dL (4.2-5.5) L 01/22/18 05:07 Globulin 3.7 gm/dL 01/22/18 05:07 Albumin/Globulin Ratio 0.8 (1.0-1.8) L 01/22/18 05:07 Amylase 148 U/L (29-103) H 01/18/18 20:51 Lipase 179 U/L (11-82) H 01/18/18 20:51 TSH 3.58 uIU/ml (0.34-5.60) 01/18/18 20:21 PTH Interpretation (()) 01/19/18 12:10 PTH Intact 9 pg/mL (15-65) L 01/19/18 12:10 Calcium (PTH Intact) 11.0 mg/dL (8.7-10.2) H 01/19/18 12:10 Urine Source RANDOM 01/18/18 20:10 Urine Color YELLOW 01/18/18 20:10 Urine Clarity CLEAR (CLEAR) 01/18/18 20:10 Urine pH 7.0 (4.6 - 8.0) 01/18/18 20:10 Ur Specific [place] 1.010 (1.005-1.030) 01/18/18 20:10 Urine Protein NEGATIVE mg/dL (NEGATIVE) 01/18/18 20:10 Urine Glucose (UA) >=1000 mg/dL (NEGATIVE) H 01/18/18 20:10 Urine Ketones NEGATIVE mg/dL (NEGATIVE) 01/18/18 20:10 Urine Blood SMALL (NEGATIVE) H 01/18/18 20:10 Urine Nitrate NEGATIVE (NEGATIVE) 01/18/18 20:10 Urine Bilirubin NEGATIVE (NEGATIVE) 01/18/18 20:10 Urine Urobilinogen 0.2 E.U./dL (0.2 - 1.0) 01/18/18 20:10 Ur Leukocyte Esterase NEGATIVE (NEGATIVE) 01/18/18 20:10 Urine RBC 2-5 /hpf (0-5) H 01/18/18 20:10 Urine WBC NONE SEEN /hpf (0-5) 01/18/18 20:10 Ur Epithelial Cells NONE SEEN /lpf (FEW) 01/18/18 20:10 Urine Bacteria NONE SEEN /hpf (NONE SEEN) 01/18/18 20:10 Urine Opiates Screen NEGATIVE (NEGATIVE) 01/18/18 20:10 Urine Methadone Screen NEGATIVE (NEGATIVE) 01/18/18 20:10 Acetaminophen < 10.0 ug/mL (10.0-30.0) L 01/20/18 05:30 Ur Barbiturates Screen NEGATIVE (NEGATIVE) 01/18/18 20:10 Ur Tricyclics Screen NEGATIVE (NEGATIVE) 01/18/18 20:10 Ur Phencyclidine Scrn NEGATIVE (NEGATIVE) 01/18/18 20:10 Amphetamines Screen NEGATIVE (NEGATIVE) 01/18/18 20:10 U Methamphetamines Scrn NEGATIVE (NEGATIVE) 01/18/18 20:10 U Benzodiazepines Scrn NEGATIVE (NEGATIVE) 01/18/18 20:10 U Cocaine Metab Screen NEGATIVE (NEGATIVE) 01/18/18 20:10 U Cannabinoids Screen NEGATIVE (NEGATIVE) 01/18/18 20:10 RPR NONREACTIVE (NONREACTIVE) 01/18/18 20:21 - Physical Exam Vitals and I&O: Vital Signs Temp 98.8 F 01/22/18 04:00 Pulse 105 01/22/18 08:00 Resp 18 01/22/18 08:01 BP 135/84 01/22/18 06:00 Pulse Ox 98 01/22/18 08:00 Intake & Output 01/21/18 01/22/18 01/22/18 18:59 06:59 18:59 Intake Total 125 1881.667 Output Total 1000 Balance 125 881.667 Weight (lbs) 94.347 kg Intake: Intake, IV Amount 125 1081.667 Piperacillin Sodium/ 100 Tazobact 2.25 gm In Sodium Chloride 0.9% 50 ml @ 100 mls/hr IV Q8HR [facility] Rx#:[id number] Sodium Chloride 0.45% 1, 125 000 ml @ 100 mls/hr IV . Q10H [facility] Rx#:[id number] Oral 800 Output: Urine 1000 Other: # Bowel Movements 3 Stool Characteristics Soft Liquid Active Medications: Current Medications Albuterol/Ipratropium (Duoneb Neb) 3 ml HHN Q6HRT [facility] Stop: 03/20/18 12:59 Last Admin: 01/22/18 07:59 Dose: 3 ml Aspirin (Aspirin Chewable) 81 mg PO DAILY [facility] Stop: 03/23/18 08:59 Diltiazem HCl (Cardizem) 60 mg PO Q6HR [facility] Stop: 03/23/18 00:00 Last Admin: 01/22/18 05:31 Dose: 60 mg Piperacillin Sod/Tazobactam (Sod 2.25 gm/ Sodium Chloride) 50 mls @ 100 mls/hr IV Q8HR [facility] Stop: 03/20/18 12:59 Last Admin: 01/22/18 05:12 Dose: 100 mls/hr Sodium Chloride (Nacl 0.9%) 500 mls @ 0 mls/hr IV .Q0M [facility] PRN Reason: TKO Stop: 03/22/18 20:14 Last Admin: 01/21/18 22:32 Dose: 10 mls/hr Insulin Aspart (Novolog) 0 units SUBQ ACHS [facility] PRN Reason: Protocol Stop: 03/21/18 11:29 Last Admin: 01/22/18 07:01 Dose: 3 units Insulin Detemir (Levemir Insulin) 20 units SUBQ DAILY [facility] PRN Reason: Protocol Stop: 03/22/18 09:23 Lactobacillus Rhamnosus (Culturelle 15b) 1 each PO DAILY [facility] Stop: 03/22/18 08:59 Last Admin: 01/21/18 08:31 Dose: 1 each Lactulose (Cephulac) 45 gm PO Q6HRT [facility] Stop: 03/21/18 12:59 Last Admin: 01/22/18 06:59 Dose: Not Given Lorazepam (Ativan) 1 mg PO Q4HR PRN; Protocol PRN Reason: Anxiety Stop: 03/20/18 10:08 Metformin HCl (Glucophage) 850 mg PO BIDWM [facility] Stop: 03/22/18 17:59 Last Admin: 01/21/18 17:57 Dose: 850 mg Metoprolol Tartrate (Lopressor) 25 mg PO BID [facility] Stop: 03/23/18 08:59 Miscellaneous (Probiotic Screen) 1 ea [facility] PRN PRN PRN Reason: PROTOCOL Stop: 03/21/18 14:14 Quetiapine Fumarate (Seroquel) 100 mg PO BID [facility] PRN Reason: Protocol Stop: 03/21/18 08:59 Last Admin: 01/21/18 17:58 Dose: 100 mg Rifaximin (Xifaxan) 550 mg PO BID [facility] Stop: 03/20/18 16:59 Last Admin: 01/21/18 18:09 Dose: 550 mg Assessment/Plan - Assessment Assessment: 57 YO MALE WITH ETOH CIRRHOSIS HAS HEPATIC ENCEPHALOPATHY IRMA SHOWED GALLSTONES BUT HIDA SCAN WAS NEGATIVE - PT IS ASYMPTOMATIC 1.CONT XIFAXAN AND LACTULOSE 2.CONSIDER SUKHDEEP IN THE FUTURE IF SYMPTOMATIC
[2018-01-22] MEDS: Insulin Detemir 100 units/mL 10mL Vial SUBQ SCH (09:40)
[2018-01-22] MEDS: Lactobacillus Rhamnosus GG 15 Billion CFU CAP.SPRINK PO SCH (09:41)
[2018-01-22] MEDS: Aspirin 81mg Chewable Tab PO SCH (09:41)
[2018-01-22] MEDS ORDERED: Mag Sulfate 2gm/50mL Premix 2 GM/50 ML BAG IV ONE (15:45)
--- NOTE | 2018-01-22 17:13 | Progress Notes ---
DATE: 01/22/[address] Crow. Case was discussed with staff of the patient, reviewed records. The patient is currently in ICU. In general, he is calmer. He is sleeping better, eating better. Dr. Crow continued back on the Seroquel. He is less agitated, responding better to redirection. No side effects of the medication, no sedation, no nausea and no extrapyramidal symptoms. Thank you very much for allowing me to participate in the care of this most interesting gentleman. JOB# [id number]
--- NOTE | 2018-01-22 17:38 | General Progress Note ---
Subjective - Review of Systems Subjective: Patient is seen and examined. No new complaints Feeling better. Objective - Results Result Diagrams: 01/22/18 05:07 01/22/18 05:07 Recent Labs: Laboratory Last Values WBC 6.5 Th/cmm (4.8-10.8) 01/22/18 05:07 RBC 4.56 Mil/cmm (4.30-5.70) 01/22/18 05:07 Hgb 12.2 gm/dL (12-16) 01/22/18 05:07 Hct 36.9 % (41.0-60) L 01/22/18 05:07 MCV 80.9 fl (80-99) 01/22/18 05:07 MCH 26.8 pg (26.0-30.0) 01/22/18 05:07 MCHC Differential 33.1 pg (28.0-36.0) 01/22/18 05:07 RDW 16.5 % (11.5-20.0) 01/22/18 05:07 Plt Count 70 Th/cmm (150-400) L D 01/22/18 05:07 MPV 9.5 fl 01/22/18 05:07 Neutrophils % 51.0 % (40.0-80.0) 01/19/18 08:00 Lymphocytes % 32.1 % (20.0-50.0) 01/19/18 08:00 Monocytes % 12.3 % (2.0-10.0) H 01/19/18 08:00 Eosinophils % 3.8 % (0.0-5.0) 01/19/18 08:00 Basophils % 0.8 % (0.0-2.0) 01/19/18 08:00 Neutrophils (Manual) 43 % (40-80) 01/22/18 05:07 Lymphocytes 37 % (20-50) 01/22/18 05:07 Monocytes 12 % (2-10) H 01/22/18 05:07 Eosinophils 7 % (0-5) H 01/22/18 05:07 Basophils 1 % (0-3) 01/22/18 05:07 Platelet Estimate DECREASED PLATELETS (NORMAL) 01/22/18 05:07 Specimen Source Arterial 01/20/18 09:34 Sample Site Left Radial 01/20/18 09:34 pH 7.40 (7.35-7.45) 01/20/18 09:34 pCO2 29.0 mmHg (35.0-45.0) L 01/20/18 09:34 pO2 80.0 mmHg (80.0-100.0) 01/20/18 09:34 HCO3 20.5 mEq/L (20.0-26.0) 01/20/18 09:34 Base Excess -5.6 mEq/L (-3.0-3.0) L 01/20/18 09:34 O2 Saturation 96.0 % (92.0-100.0) 01/20/18 09:34 Baltazar Test YES 01/20/18 09:34 Vent Rate NA 01/20/18 09:34 Inspired O2 21 01/20/18 09:34 Tidal Volume NA 01/20/18 09:34 PEEP NA 01/20/18 09:34 Pressure (ins/psv/peep) NA 01/20/18 09:34 Critical Value E.MULLEN 01/20/18 09:34 Sodium 133 mEq/L (136-145) L 01/22/18 05:07 Potassium 3.7 mEq/L (3.5-5.1) 01/22/18 05:07 Chloride 110 mEq/L (98-107) H 01/22/18 05:07 Carbon Dioxide 18.7 mEq/L (21.0-31.0) L 01/22/18 05:07 Anion Gap 8.0 (7.0-16.0) 01/22/18 05:07 BUN 18 mg/dL (7-25) 01/22/18 05:07 Creatinine 1.1 mg/dL (0.7-1.3) 01/22/18 05:07 Est GFR ( Amer) > 60.0 ml/min (>90) 01/22/18 05:07 Est GFR (Non-Af Amer) > 60.0 ml/min 01/22/18 05:07 BUN/Creatinine Ratio 16.4 01/22/18 05:07 Glucose 151 mg/dL (70-105) H 01/22/18 05:07 POC Glucose 240 MG/DL (70 - 105) H 01/22/18 17:08 Hemoglobin A1c % 10.3 % (4.0-6.0) H 01/18/18 20:51 Calcium 10.6 mg/dL (8.6-10.3) H 01/22/18 05:07 Phosphorus 3.2 mg/dL (2.5-5.0) 01/19/18 12:10 Magnesium 1.6 mg/dL (1.9-2.7) L 01/22/18 05:07 Total Bilirubin 1.6 mg/dL (0.3-1.0) H 01/22/18 05:07 Direct Bilirubin 0.95 mg/dL (0.0-0.2) H 01/20/18 05:30 AST 64 U/L (13-39) H 01/22/18 05:07 ALT 43 U/L (7-52) 01/22/18 05:07 Alkaline Phosphatase 172 U/L (34-104) H 01/22/18 05:07 Ammonia 74 umol/L (16-53) H 01/22/18 16:25 Creatine Kinase 616 U/L (30-223) H 01/19/18 16:00 CK-MB (CK-2) 10.3 ng/mL (0.6-6.3) H 01/19/18 16:00 Troponin I 0.19 ng/mL (0.01-0.05) H* 01/19/18 16:00 B-Natriuretic Peptide 35.1 pg/mL (5.0-100.0) 01/18/18 23:57 Total Protein 6.5 gm/dL (6.0-8.3) 01/22/18 05:07 Albumin 2.8 gm/dL (4.2-5.5) L 01/22/18 05:07 Globulin 3.7 gm/dL 01/22/18 05:07 Albumin/Globulin Ratio 0.8 (1.0-1.8) L 01/22/18 05:07 Amylase 148 U/L (29-103) H 01/18/18 20:51 Lipase 179 U/L (11-82) H 01/18/18 20:51 TSH 3.58 uIU/ml (0.34-5.60) 01/18/18 20:21 PTH Interpretation (()) 01/19/18 12:10 PTH Intact 9 pg/mL (15-65) L 01/19/18 12:10 Calcium (PTH Intact) 11.0 mg/dL (8.7-10.2) H 01/19/18 12:10 Urine Source RANDOM 01/18/18 20:10 Urine Color YELLOW 01/18/18 20:10 Urine Clarity CLEAR (CLEAR) 01/18/18 20:10 Urine pH 7.0 (4.6 - 8.0) 01/18/18 20:10 Ur Specific [place] 1.010 (1.005-1.030) 01/18/18 20:10 Urine Protein NEGATIVE mg/dL (NEGATIVE) 01/18/18 20:10 Urine Glucose (UA) >=1000 mg/dL (NEGATIVE) H 01/18/18 20:10 Urine Ketones NEGATIVE mg/dL (NEGATIVE) 01/18/18 20:10 Urine Blood SMALL (NEGATIVE) H 01/18/18 20:10 Urine Nitrate NEGATIVE (NEGATIVE) 01/18/18 20:10 Urine Bilirubin NEGATIVE (NEGATIVE) 01/18/18 20:10 Urine Urobilinogen 0.2 E.U./dL (0.2 - 1.0) 01/18/18 20:10 Ur Leukocyte Esterase NEGATIVE (NEGATIVE) 01/18/18 20:10 Urine RBC 2-5 /hpf (0-5) H 01/18/18 20:10 Urine WBC NONE SEEN /hpf (0-5) 01/18/18 20:10 Ur Epithelial Cells NONE SEEN /lpf (FEW) 01/18/18 20:10 Urine Bacteria NONE SEEN /hpf (NONE SEEN) 01/18/18 20:10 Urine Opiates Screen NEGATIVE (NEGATIVE) 01/18/18 20:10 Urine Methadone Screen NEGATIVE (NEGATIVE) 01/18/18 20:10 Acetaminophen < 10.0 ug/mL (10.0-30.0) L 01/20/18 05:30 Ur Barbiturates Screen NEGATIVE (NEGATIVE) 01/18/18 20:10 Ur Tricyclics Screen NEGATIVE (NEGATIVE) 01/18/18 20:10 Ur Phencyclidine Scrn NEGATIVE (NEGATIVE) 01/18/18 20:10 Amphetamines Screen NEGATIVE (NEGATIVE) 01/18/18 20:10 U Methamphetamines Scrn NEGATIVE (NEGATIVE) 01/18/18 20:10 U Benzodiazepines Scrn NEGATIVE (NEGATIVE) 01/18/18 20:10 U Cocaine Metab Screen NEGATIVE (NEGATIVE) 01/18/18 20:10 U Cannabinoids Screen NEGATIVE (NEGATIVE) 01/18/18 20:10 RPR NONREACTIVE (NONREACTIVE) 01/18/18 20:21 - Physical Exam Vitals and I&O: Vital Signs Temp 98.8 F 01/22/18 04:00 Pulse 58 01/22/18 13:14 Resp 36 01/22/18 13:14 BP 121/85 01/22/18 09:41 Pulse Ox 100 01/22/18 13:14 Intake & Output 01/21/18 01/22/18 01/22/18 18:59 06:59 18:59 Intake Total 125 1931.667 Output Total 1000 Balance 125 931.667 Weight (lbs) 94.347 kg Intake: Intake, IV Amount 125 1131.667 Piperacillin Sodium/ 150 Tazobact 2.25 gm In Sodium Chloride 0.9% 50 ml @ 100 mls/hr IV Q8HR [facility] Rx#:[id number] Sodium Chloride 0.45% 1, 125 000 ml @ 100 mls/hr IV . Q10H [facility] Rx#:[id number] Oral 800 Output: Urine 1000 Other: # Bowel Movements 3 Stool Characteristics Soft Liquid Active Medications: Current Medications Albuterol/Ipratropium (Duoneb Neb) 3 ml HHN Q6HRT [facility] Stop: 03/20/18 12:59 Last Admin: 01/22/18 13:14 Dose: 3 ml Aspirin (Aspirin Chewable) 81 mg PO DAILY [facility] Stop: 03/23/18 08:59 Last Admin: 01/22/18 09:41 Dose: 81 mg Diltiazem HCl (Cardizem) 60 mg PO Q6HR [facility] Stop: 03/23/18 00:00 Last Admin: 01/22/18 12:00 Dose: Not Given Piperacillin Sod/Tazobactam (Sod 2.25 gm/ Sodium Chloride) 50 mls @ 100 mls/hr IV Q8HR [facility] Stop: 03/20/18 12:59 Last Admin: 01/22/18 15:35 Dose: 100 mls/hr Sodium Chloride (Nacl 0.9%) 500 mls @ 0 mls/hr IV .Q0M [facility] PRN Reason: TKO Stop: 03/22/18 20:14 Last Admin: 01/21/18 22:32 Dose: 10 mls/hr Magnesium Sulfate (Magnesium Sulfate Premix) 2 gm in 50 mls @ 25 mls/hr IV X1 ONE Stop: 01/22/18 17:44 Last Admin: 01/22/18 16:58 Dose: 25 mls/hr Insulin Aspart (Novolog) 0 units SUBQ ACHS [facility] PRN Reason: Protocol Stop: 03/21/18 11:29 Last Admin: 01/22/18 12:32 Dose: 5 units Insulin Detemir (Levemir Insulin) 20 units SUBQ DAILY [facility] PRN Reason: Protocol Stop: 03/22/18 09:23 Last Admin: 01/22/18 09:40 Dose: 20 units Lactobacillus Rhamnosus (Culturelle 15b) 1 each PO DAILY [facility] Stop: 03/22/18 08:59 Last Admin: 01/22/18 09:41 Dose: 1 each Lactulose (Cephulac) 45 gm PO Q6HRT [facility] Stop: 03/21/18 12:59 Last Admin: 01/22/18 13:00 Dose: Not Given Lorazepam (Ativan) 1 mg PO Q4HR PRN; Protocol PRN Reason: Anxiety Stop: 03/20/18 10:08 Metformin HCl (Glucophage) 850 mg PO BIDWM [facility] Stop: 03/22/18 17:59 Last Admin: 01/22/18 09:40 Dose: 850 mg Metoprolol Tartrate (Lopressor) 25 mg PO BID [facility] Stop: 03/23/18 08:59 Last Admin: 01/22/18 09:41 Dose: 25 mg Miscellaneous (Probiotic Screen) 1 ea MC PRN PRN PRN Reason: PROTOCOL Stop: 03/21/18 14:14 Quetiapine Fumarate (Seroquel) 100 mg PO BID [facility] PRN Reason: Protocol Stop: 03/21/18 08:59 Last Admin: 01/22/18 16:59 Dose: 100 mg Rifaximin (Xifaxan) 550 mg PO BID [facility] Stop: 03/20/18 16:59 Last Admin: 01/22/18 16:59 Dose: 550 mg General: Alert, Oriented x3, Cooperative HEENT: Atraumatic, PERRLA, EOMI Neck: Supple, JVD Cardiovascular: Regular rate, Normal S1, Normal S2 Lungs: Clear to auscultation Abdomen: Bowel sounds, Soft, Obese Extremities: Other (No edmea,cyanosis,clubbing.) Neurological: Normal gait, Normal speech Skin: Rash Psych/Mental Status: Mental status NL Assessment/Plan - Assessment Assessment: Altered mental status RLL pneumonia. Insulin requiring DM Cirrhosis of liver. Psych disorder Cholelithiasis. Thrombocytopenia. DJD Debility Hepatic encephalopathy - Plan Plan: Transfer to med surg floor IVF Iv antibiotics Lactulose Psych meds Psych follow up PT and OT Symptoms control. General nursing care Follow lab Follow consultants recommendations Continue current care Discussed with staff. Nutritional Asmnt/Malnutr-PDOC - Dietary Evaluation Malnutrition Findings (Please click <Entered> for more info): Nutritional Asmnt/Malnutrition Start: 01/19/18 18: 00 Text: Status: Complete Freq: Document 01/19/18 18:00 [facility] (Rec: 01/19/18 18:15 LCHENG [id number]) Nutritional Asmnt/Malnutrition Patient General Information Nutritional Screening High Risk Consult Diagnosis uncontrolled DM Pertinent Medical Hx/Surgical Hx HTN, Asthm/COPD, CABG, anxiety , HCV, rhabdomyolysis, encephalopathy, anxiety Subjective Information Consult received for BS >180 at admission. Pt transfered to ICU in the afternoon. RN reported pt now is NPO and may start TF. Pt on insulin drip noted. Current Diet Order/ Nutrition Support NPO Pertinent Medications insulin drip, piperacillin, de -0.45ns w 20 meq kcl, nacl 0.9 % Pertinent Labs 01/19 Na 134, K 3.9, Cl 111, BUN 21, Cr 1.0, Glucose 165 ( trending down), POC 150 01/18 A1c 10.3 Nutritional Hx/Data Height 1.73 m Height (Calculated Centimeters) 172.7 Current Weight (lbs) 81.647 kg Weight (Calculated Kilograms) 81.6 Weight (Calculated Grams) 38238.6 [place] Body Weight 154 Body Mass Index (BMI) 27.3 Weight Status Overweight GI Symptoms GI Symptoms None Last BM no record Difficult in: None Skin Integrity/Comment: everardo Pendleton Estimated Nutritional Goals BEE in Kcals: Adj wt of IBW Calories/Kcals/Kg 25-30 Kcals Calculated [id number] Protein: Adj wt of IBW Protein g/k-1.2 Protein Calculated 73-88 Fluid: ml 4995-1745 Nutritional Problem 1. Problem Problem altered nutrition related lab values Etiology endocrine dysfunction Signs/Symptoms: Glucose 165-794, POC 150-576 A1c 10.3 Intervention/Recommendation Comments 1. Monitor NPO status. 2. If TF needed, recommend Diabetisource AC at 60ml/hr continuous. This will provide 1728kcal and 86g protein, meeting 95% of calorie needs and 100% of protein needs. 3. Monitor wt, labs and skin integrity 4. F/U as high risk in 2-3 day , 3/2-3/3 Expected Outcomes/Goals Expected Outcomes/Goals 1. pt to meet at least 75% of nutritional needs in 2-3 days. 2. Wt stability, skin to remain intact, labs to approach WNL.
[2018-01-22] MEDS: Sodium Chloride 0.45% 1,000 ML IV SCH (17:56)
[2018-01-22] MEDS ORDERED: Piperacillin Sodium/Tazobact 2.25 gm Vial IV ONE (20:43)
[2018-01-23] MEDS: Diltiazem 30 mg Tab PO SCH ×4 (00:35→17:33)
[2018-01-23] MEDS: Lactulose 10 Gm/15 mL 30mL UDC PO SCH ×5 (01:07→20:01)
[2018-01-23] MEDS: Sodium Chloride 0.45% 1,000 ML IV SCH ×2 (01:54→11:06)
[2018-01-23] MEDS: Albuterol/Ipratropium Neb 3 ML AERS HHN SCH ×4 (02:01→19:13)
[2018-01-23 06:36] LABS: EOSINOPHILE ABSOLUTE 0.3 Th/cmm (0.1-0.4); HEMATOCRIT 33.7 % (41.0-60); HEMOGLOBIN 11.1 gm/dL (12-16); LYMPHOCYTE ABSOLUTE 2.1 Th/cmm (1.5-3.0); MANUAL DIFF REQUIRED? YES; MEAN CELL VOLUME 81.1 fl (80-99); MEAN CORPUSCULAR HEMOGLOBIN 26.6 pg (26.0-30.0); MEAN CORPUSCULAR HGB CONC 32.9 pg (28.0-36.0); MEAN PLATELET VOLUME 9.2 fl; NEUTROPHILE ABSOLUTE 3.2 Th/cmm (1.8-8.0); PLATELET COUNT 59 Th/cmm (150-400); RED BLOOD COUNT 4.15 Mil/cmm (4.30-5.70); RED CELL DISTRIBUTION WIDTH 16.5 % (11.5-20.0); WHITE BLOOD COUNT 6.6 Th/cmm (4.8-10.8)
[2018-01-23 06:50] LABS: ALB/GLOB RATIO 0.8 (1.0-1.8); ALBUMIN 2.5 gm/dL (4.2-5.5); ALKALINE PHOSPHATASE 157 U/L (34-104); ANION GAP 9.4 (7.0-16.0); BILIRUBIN,TOTAL 1.1 mg/dL (0.3-1.0); BUN - UREA NITROGEN 26 mg/dL (7-25); CARBON DIOXIDE 18.2 mEq/L (21.0-31.0); CHLORIDE 105 mEq/L (98-107); CREATININE - SERUM 1.2 mg/dL (0.7-1.3); GFR AFRICAN-AMERICAN > 60.0 ml/min (>90); GFR NON AFRICAN-AMERICAN > 60.0 ml/min; GLUCOSE 196 mg/dL (70-105); MAGNESIUM 1.6 mg/dL (1.9-2.7); POTASSIUM SERUM 3.6 mEq/L (3.5-5.1); SGOT 61 U/L (13-39); SGPT/ALT 38 U/L (7-52); SODIUM SERUM 129 mEq/L (136-145); TOTAL PROTEIN,SERUM 5.6 gm/dL (6.0-8.3)
[2018-01-23] MEDS: Lactobacillus Rhamnosus GG 15 Billion CFU CAP.SPRINK PO SCH (08:27)
[2018-01-23] MEDS: Insulin Detemir 100 units/mL 10mL Vial SUBQ SCH (08:28)
--- NOTE | 2018-01-23 08:29 | GI Progress Note ---
Subjective - Review of Systems Subjective: AWAKE LESS CONFUSED DENIES ABD PAIN Objective - Results Result Diagrams: 01/23/18 05:40 01/23/18 05:40 Recent Labs: Laboratory Last Values WBC 6.6 Th/cmm (4.8-10.8) 01/23/18 05:40 RBC 4.15 Mil/cmm (4.30-5.70) L 01/23/18 05:40 Hgb 11.1 gm/dL (12-16) L 01/23/18 05:40 Hct 33.7 % (41.0-60) L 01/23/18 05:40 MCV 81.1 fl (80-99) 01/23/18 05:40 MCH 26.6 pg (26.0-30.0) 01/23/18 05:40 MCHC Differential 32.9 pg (28.0-36.0) 01/23/18 05:40 RDW 16.5 % (11.5-20.0) 01/23/18 05:40 Plt Count 59 Th/cmm (150-400) L 01/23/18 05:40 MPV 9.2 fl 01/23/18 05:40 Neutrophils % 51.0 % (40.0-80.0) 01/19/18 08:00 Lymphocytes % 32.1 % (20.0-50.0) 01/19/18 08:00 Monocytes % 12.3 % (2.0-10.0) H 01/19/18 08:00 Eosinophils % 3.8 % (0.0-5.0) 01/19/18 08:00 Basophils % 0.8 % (0.0-2.0) 01/19/18 08:00 Neutrophils (Manual) 43 % (40-80) 01/22/18 05:07 Lymphocytes 37 % (20-50) 01/22/18 05:07 Monocytes 12 % (2-10) H 01/22/18 05:07 Eosinophils 7 % (0-5) H 01/22/18 05:07 Basophils 1 % (0-3) 01/22/18 05:07 Platelet Estimate DECREASED PLATELETS (NORMAL) 01/22/18 05:07 Specimen Source Arterial 01/20/18 09:34 Sample Site Left Radial 01/20/18 09:34 pH 7.40 (7.35-7.45) 01/20/18 09:34 pCO2 29.0 mmHg (35.0-45.0) L 01/20/18 09:34 pO2 80.0 mmHg (80.0-100.0) 01/20/18 09:34 HCO3 20.5 mEq/L (20.0-26.0) 01/20/18 09:34 Base Excess -5.6 mEq/L (-3.0-3.0) L 01/20/18 09:34 O2 Saturation 96.0 % (92.0-100.0) 01/20/18 09:34 Baltazar Test YES 01/20/18 09:34 Vent Rate NA 01/20/18 09:34 Inspired O2 21 01/20/18 09:34 Tidal Volume NA 01/20/18 09:34 PEEP NA 01/20/18 09:34 Pressure (ins/psv/peep) NA 01/20/18 09:34 Critical Value E.MULLEN 01/20/18 09:34 Sodium 129 mEq/L (136-145) L 01/23/18 05:40 Potassium 3.6 mEq/L (3.5-5.1) 01/23/18 05:40 Chloride 105 mEq/L (98-107) 01/23/18 05:40 Carbon Dioxide 18.2 mEq/L (21.0-31.0) L 01/23/18 05:40 Anion Gap 9.4 (7.0-16.0) 01/23/18 05:40 BUN 26 mg/dL (7-25) H 01/23/18 05:40 Creatinine 1.2 mg/dL (0.7-1.3) 01/23/18 05:40 Est GFR ( Amer) > 60.0 ml/min (>90) 01/23/18 05:40 Est GFR (Non-Af Amer) > 60.0 ml/min 01/23/18 05:40 BUN/Creatinine Ratio 21.7 01/23/18 05:40 Glucose 196 mg/dL (70-105) H 01/23/18 05:40 POC Glucose 181 MG/DL (70 - 105) H 01/23/18 06:06 Hemoglobin A1c % 10.3 % (4.0-6.0) H 01/18/18 20:51 Calcium 10.0 mg/dL (8.6-10.3) 01/23/18 05:40 Phosphorus 3.2 mg/dL (2.5-5.0) 01/19/18 12:10 Magnesium 1.6 mg/dL (1.9-2.7) L 01/23/18 05:40 Total Bilirubin 1.1 mg/dL (0.3-1.0) H 01/23/18 05:40 Direct Bilirubin 0.95 mg/dL (0.0-0.2) H 01/20/18 05:30 AST 61 U/L (13-39) H 01/23/18 05:40 ALT 38 U/L (7-52) 01/23/18 05:40 Alkaline Phosphatase 157 U/L (34-104) H 01/23/18 05:40 Ammonia 148 umol/L (16-53) H 01/23/18 05:40 Creatine Kinase 616 U/L (30-223) H 01/19/18 16:00 CK-MB (CK-2) 10.3 ng/mL (0.6-6.3) H 01/19/18 16:00 Troponin I 0.19 ng/mL (0.01-0.05) H* 01/19/18 16:00 B-Natriuretic Peptide 35.1 pg/mL (5.0-100.0) 01/18/18 23:57 Total Protein 5.6 gm/dL (6.0-8.3) L 01/23/18 05:40 Albumin 2.5 gm/dL (4.2-5.5) L 01/23/18 05:40 Globulin 3.1 gm/dL 01/23/18 05:40 Albumin/Globulin Ratio 0.8 (1.0-1.8) L 01/23/18 05:40 Amylase 148 U/L (29-103) H 01/18/18 20:51 Lipase 179 U/L (11-82) H 01/18/18 20:51 TSH 3.58 uIU/ml (0.34-5.60) 01/18/18 20:21 PTH Interpretation (()) 01/19/18 12:10 PTH Intact 9 pg/mL (15-65) L 01/19/18 12:10 Calcium (PTH Intact) 11.0 mg/dL (8.7-10.2) H 01/19/18 12:10 Urine Source RANDOM 01/18/18 20:10 Urine Color YELLOW 01/18/18 20:10 Urine Clarity CLEAR (CLEAR) 01/18/18 20:10 Urine pH 7.0 (4.6 - 8.0) 01/18/18 20:10 Ur Specific [place] 1.010 (1.005-1.030) 01/18/18 20:10 Urine Protein NEGATIVE mg/dL (NEGATIVE) 01/18/18 20:10 Urine Glucose (UA) >=1000 mg/dL (NEGATIVE) H 01/18/18 20:10 Urine Ketones NEGATIVE mg/dL (NEGATIVE) 01/18/18 20:10 Urine Blood SMALL (NEGATIVE) H 01/18/18 20:10 Urine Nitrate NEGATIVE (NEGATIVE) 01/18/18 20:10 Urine Bilirubin NEGATIVE (NEGATIVE) 01/18/18 20:10 Urine Urobilinogen 0.2 E.U./dL (0.2 - 1.0) 01/18/18 20:10 Ur Leukocyte Esterase NEGATIVE (NEGATIVE) 01/18/18 20:10 Urine RBC 2-5 /hpf (0-5) H 01/18/18 20:10 Urine WBC NONE SEEN /hpf (0-5) 01/18/18 20:10 Ur Epithelial Cells NONE SEEN /lpf (FEW) 01/18/18 20:10 Urine Bacteria NONE SEEN /hpf (NONE SEEN) 01/18/18 20:10 Urine Opiates Screen NEGATIVE (NEGATIVE) 01/18/18 20:10 Urine Methadone Screen NEGATIVE (NEGATIVE) 01/18/18 20:10 Acetaminophen < 10.0 ug/mL (10.0-30.0) L 01/20/18 05:30 Ur Barbiturates Screen NEGATIVE (NEGATIVE) 01/18/18 20:10 Ur Tricyclics Screen NEGATIVE (NEGATIVE) 01/18/18 20:10 Ur Phencyclidine Scrn NEGATIVE (NEGATIVE) 01/18/18 20:10 Amphetamines Screen NEGATIVE (NEGATIVE) 01/18/18 20:10 U Methamphetamines Scrn NEGATIVE (NEGATIVE) 01/18/18 20:10 U Benzodiazepines Scrn NEGATIVE (NEGATIVE) 01/18/18 20:10 U Cocaine Metab Screen NEGATIVE (NEGATIVE) 01/18/18 20:10 U Cannabinoids Screen NEGATIVE (NEGATIVE) 01/18/18 20:10 RPR NONREACTIVE (NONREACTIVE) 01/18/18 20:21 - Physical Exam Vitals and I&O: Vital Signs Temp 97.1 F 01/23/18 04:00 Pulse 73 01/23/18 07:50 Resp 20 01/23/18 06:57 BP 104/68 01/23/18 04:00 Pulse Ox 98 01/23/18 06:57 Intake & Output 01/22/18 01/23/18 01/23/18 18:59 06:59 18:59 Intake Total 8967.244 1832.833 Output Total 450 700 Balance 794.667 945.833 Weight (lbs) 94.347 kg 93.894 kg Intake: Intake, IV Amount 051.491 5629.833 Piperacillin Sodium/ 50 50 Tazobact 2.25 gm In Sodium Chloride 0.9% 50 ml @ 100 mls/hr IV Q8HR [facility] Rx#:[id number] Sodium Chloride 0.45% 1, 995.833 000 ml @ 125 mls/hr IV . Q8H [facility] Rx#:[id number] Sodium Chloride 0.9% 500 194.667 ml @ TKO IV .Q0M [facility] Rx#: [id number] Oral 1000 600 Output: Urine 450 700 Other: # Bowel Movements 3 Stool Characteristics Soft Soft Liquid Formed Active Medications: Current Medications Albuterol/Ipratropium (Duoneb Neb) 3 ml HHN Q6HRT [facility] Stop: 03/20/18 12:59 Last Admin: 01/23/18 06:56 Dose: 3 ml Aspirin (Aspirin Chewable) 81 mg PO DAILY [facility] Stop: 03/23/18 08:59 Last Admin: 01/22/18 09:41 Dose: 81 mg Diltiazem HCl (Cardizem) 60 mg PO Q6HR [facility] Stop: 03/23/18 00:00 Last Admin: 01/23/18 07:50 Dose: 60 mg Piperacillin Sod/Tazobactam (Sod 2.25 gm/ Sodium Chloride) 50 mls @ 100 mls/hr IV Q8HR [facility] Stop: 03/20/18 12:59 Last Admin: 01/23/18 04:46 Dose: 100 mls/hr Sodium Chloride (Nacl 0.9%) 500 mls @ 0 mls/hr IV .Q0M [facility]IANNE PRN Reason: TKO Stop: 03/22/18 20:14 Last Infusion: 01/22/18 18:00 Dose: 0 mls/hr Sodium Chloride (Nacl 0.45%) 1,000 mls @ 125 mls/hr IV .Q8H [facility] Stop: 03/23/18 17:44 Last Admin: 01/23/18 01:54 Dose: 125 mls/hr Insulin Aspart (Novolog) 0 units SUBQ ACHS [facility] PRN Reason: Protocol Stop: 03/21/18 11:29 Last Admin: 01/22/18 21:00 Dose: 5 units Insulin Detemir (Levemir Insulin) 20 units SUBQ DAILY [facility] PRN Reason: Protocol Stop: 03/22/18 09:23 Last Admin: 01/22/18 09:40 Dose: 20 units Lactobacillus Rhamnosus (Culturelle 15b) 1 each PO DAILY [facility] Stop: 03/22/18 08:59 Last Admin: 01/22/18 09:41 Dose: 1 each Lactulose (Cephulac) 45 gm PO Q6HRT [facility] Stop: 03/21/18 12:59 Last Admin: 01/23/18 07:51 Dose: Not Given Lorazepam (Ativan) 1 mg PO Q4HR PRN; Protocol PRN Reason: Anxiety Stop: 03/20/18 10:08 Metformin HCl (Glucophage) 850 mg PO BIDWM [facility] Stop: 03/22/18 17:59 Last Admin: 01/22/18 17:51 Dose: 850 mg Metoprolol Tartrate (Lopressor) 25 mg PO BID [facility] Stop: 03/23/18 08:59 Last Admin: 01/22/18 17:51 Dose: Not Given Miscellaneous (Probiotic Screen) 1 ea [facility] PRN PRN PRN Reason: PROTOCOL Stop: 03/21/18 14:14 Quetiapine Fumarate (Seroquel) 100 mg PO BID [facility] PRN Reason: Protocol Stop: 03/21/18 08:59 Last Admin: 01/22/18 16:59 Dose: 100 mg Rifaximin (Xifaxan) 550 mg PO BID [facility] Stop: 03/20/18 16:59 Last Admin: 01/22/18 16:59 Dose: 550 mg General: Alert, Oriented x3, Cooperative HEENT: Atraumatic, PERRLA, EOMI Neck: Supple, JVD Cardiovascular: Regular rate, Normal S1, Normal S2 Lungs: Clear to auscultation Abdomen: Bowel sounds, Soft, Obese Extremities: Other (No edmea,cyanosis,clubbing.) Neurological: Normal gait, Normal speech Skin: Rash Psych/Mental Status: Mental status NL Assessment/Plan - Assessment Assessment: 57 YO MALE WITH ETOH CIRRHOSIS HAS HEPATIC ENCEPHALOPATHY IRMA SHOWED GALLSTONES BUT HIDA SCAN WAS NEGATIVE - PT IS ASYMPTOMATIC 1.CONT XIFAXAN AND LACTULOSE 2.CONSIDER SUKHDEEP IN THE FUTURE IF SYMPTOMATIC 3.WILL NEED OUTPATIENT HEPATOLOGY MANAGEMENT
[2018-01-23] MEDS: INSULIN ASPART, RECOMBINANT 100 UNITS/ML SUBQ SCH ×3 (08:31→17:34)
[2018-01-23] MEDS: Aspirin 81mg Chewable Tab PO SCH (08:34)
[2018-01-23 11:44] LABS: BAND NEUTROPHILE 1 % (0-10); BASOPHIL 1 % (0-3); EOSINOPHIL 3 % (0-5); LYMPHOCYTE 33 % (20-50); MONOCYTE 13 % (2-10); NEUTROPHILS 49 % (40-80); PLATELET ESTIMATE DECREASED PLATELETS (NORMAL); TOTAL CELLS COUNTED 100
--- NOTE | 2018-01-23 13:59 | General Progress Note ---
Subjective - Review of Systems Subjective: Patient is seen and examined. No new complaints. Feeling better. Objective - Results Result Diagrams: 01/23/18 05:40 01/23/18 05:40 Recent Labs: Laboratory Last Values WBC 6.6 Th/cmm (4.8-10.8) 01/23/18 05:40 RBC 4.15 Mil/cmm (4.30-5.70) L 01/23/18 05:40 Hgb 11.1 gm/dL (12-16) L 01/23/18 05:40 Hct 33.7 % (41.0-60) L 01/23/18 05:40 MCV 81.1 fl (80-99) 01/23/18 05:40 MCH 26.6 pg (26.0-30.0) 01/23/18 05:40 MCHC Differential 32.9 pg (28.0-36.0) 01/23/18 05:40 RDW 16.5 % (11.5-20.0) 01/23/18 05:40 Plt Count 59 Th/cmm (150-400) L 01/23/18 05:40 MPV 9.2 fl 01/23/18 05:40 Neutrophils % 51.0 % (40.0-80.0) 01/19/18 08:00 Band Neutrophils % 1 % (0-10) 01/23/18 05:40 Lymphocytes % 32.1 % (20.0-50.0) 01/19/18 08:00 Monocytes % 12.3 % (2.0-10.0) H 01/19/18 08:00 Eosinophils % 3.8 % (0.0-5.0) 01/19/18 08:00 Basophils % 0.8 % (0.0-2.0) 01/19/18 08:00 Neutrophils (Manual) 49 % (40-80) 01/23/18 05:40 Lymphocytes 33 % (20-50) 01/23/18 05:40 Monocytes 13 % (2-10) H 01/23/18 05:40 Eosinophils 3 % (0-5) 01/23/18 05:40 Basophils 1 % (0-3) 01/23/18 05:40 Platelet Estimate DECREASED PLATELETS (NORMAL) 01/23/18 05:40 Specimen Source Arterial 01/20/18 09:34 Sample Site Left Radial 01/20/18 09:34 pH 7.40 (7.35-7.45) 01/20/18 09:34 pCO2 29.0 mmHg (35.0-45.0) L 01/20/18 09:34 pO2 80.0 mmHg (80.0-100.0) 01/20/18 09:34 HCO3 20.5 mEq/L (20.0-26.0) 01/20/18 09:34 Base Excess -5.6 mEq/L (-3.0-3.0) L 01/20/18 09:34 O2 Saturation 96.0 % (92.0-100.0) 01/20/18 09:34 Baltazar Test YES 01/20/18 09:34 Vent Rate NA 01/20/18 09:34 Inspired O2 21 01/20/18 09:34 Tidal Volume NA 01/20/18 09:34 PEEP NA 01/20/18 09:34 Pressure (ins/psv/peep) NA 01/20/18 09:34 Critical Value E.MULLEN 01/20/18 09:34 Sodium 129 mEq/L (136-145) L 01/23/18 05:40 Potassium 3.6 mEq/L (3.5-5.1) 01/23/18 05:40 Chloride 105 mEq/L (98-107) 01/23/18 05:40 Carbon Dioxide 18.2 mEq/L (21.0-31.0) L 01/23/18 05:40 Anion Gap 9.4 (7.0-16.0) 01/23/18 05:40 BUN 26 mg/dL (7-25) H 01/23/18 05:40 Creatinine 1.2 mg/dL (0.7-1.3) 01/23/18 05:40 Est GFR ( Amer) > 60.0 ml/min (>90) 01/23/18 05:40 Est GFR (Non-Af Amer) > 60.0 ml/min 01/23/18 05:40 BUN/Creatinine Ratio 21.7 01/23/18 05:40 Glucose 196 mg/dL (70-105) H 01/23/18 05:40 POC Glucose 273 MG/DL (70 - 105) H 01/23/18 11:30 Hemoglobin A1c % 10.3 % (4.0-6.0) H 01/18/18 20:51 Calcium 10.0 mg/dL (8.6-10.3) 01/23/18 05:40 Phosphorus 3.2 mg/dL (2.5-5.0) 01/19/18 12:10 Magnesium 1.6 mg/dL (1.9-2.7) L 01/23/18 05:40 Total Bilirubin 1.1 mg/dL (0.3-1.0) H 01/23/18 05:40 Direct Bilirubin 0.95 mg/dL (0.0-0.2) H 01/20/18 05:30 AST 61 U/L (13-39) H 01/23/18 05:40 ALT 38 U/L (7-52) 01/23/18 05:40 Alkaline Phosphatase 157 U/L (34-104) H 01/23/18 05:40 Ammonia 148 umol/L (16-53) H 01/23/18 05:40 Creatine Kinase 616 U/L (30-223) H 01/19/18 16:00 CK-MB (CK-2) 10.3 ng/mL (0.6-6.3) H 01/19/18 16:00 Troponin I 0.19 ng/mL (0.01-0.05) H* 01/19/18 16:00 B-Natriuretic Peptide 35.1 pg/mL (5.0-100.0) 01/18/18 23:57 Total Protein 5.6 gm/dL (6.0-8.3) L 01/23/18 05:40 Albumin 2.5 gm/dL (4.2-5.5) L 01/23/18 05:40 Globulin 3.1 gm/dL 01/23/18 05:40 Albumin/Globulin Ratio 0.8 (1.0-1.8) L 01/23/18 05:40 Amylase 148 U/L (29-103) H 01/18/18 20:51 Lipase 179 U/L (11-82) H 01/18/18 20:51 TSH 3.58 uIU/ml (0.34-5.60) 01/18/18 20:21 PTH Interpretation (()) 01/19/18 12:10 PTH Intact 9 pg/mL (15-65) L 01/19/18 12:10 Calcium (PTH Intact) 11.0 mg/dL (8.7-10.2) H 01/19/18 12:10 Urine Source RANDOM 01/18/18 20:10 Urine Color YELLOW 01/18/18 20:10 Urine Clarity CLEAR (CLEAR) 01/18/18 20:10 Urine pH 7.0 (4.6 - 8.0) 01/18/18 20:10 Ur Specific [place] 1.010 (1.005-1.030) 01/18/18 20:10 Urine Protein NEGATIVE mg/dL (NEGATIVE) 01/18/18 20:10 Urine Glucose (UA) >=1000 mg/dL (NEGATIVE) H 01/18/18 20:10 Urine Ketones NEGATIVE mg/dL (NEGATIVE) 01/18/18 20:10 Urine Blood SMALL (NEGATIVE) H 01/18/18 20:10 Urine Nitrate NEGATIVE (NEGATIVE) 01/18/18 20:10 Urine Bilirubin NEGATIVE (NEGATIVE) 01/18/18 20:10 Urine Urobilinogen 0.2 E.U./dL (0.2 - 1.0) 01/18/18 20:10 Ur Leukocyte Esterase NEGATIVE (NEGATIVE) 01/18/18 20:10 Urine RBC 2-5 /hpf (0-5) H 01/18/18 20:10 Urine WBC NONE SEEN /hpf (0-5) 01/18/18 20:10 Ur Epithelial Cells NONE SEEN /lpf (FEW) 01/18/18 20:10 Urine Bacteria NONE SEEN /hpf (NONE SEEN) 01/18/18 20:10 Urine Opiates Screen NEGATIVE (NEGATIVE) 01/18/18 20:10 Urine Methadone Screen NEGATIVE (NEGATIVE) 01/18/18 20:10 Acetaminophen < 10.0 ug/mL (10.0-30.0) L 01/20/18 05:30 Ur Barbiturates Screen NEGATIVE (NEGATIVE) 01/18/18 20:10 Ur Tricyclics Screen NEGATIVE (NEGATIVE) 01/18/18 20:10 Ur Phencyclidine Scrn NEGATIVE (NEGATIVE) 01/18/18 20:10 Amphetamines Screen NEGATIVE (NEGATIVE) 01/18/18 20:10 U Methamphetamines Scrn NEGATIVE (NEGATIVE) 01/18/18 20:10 U Benzodiazepines Scrn NEGATIVE (NEGATIVE) 01/18/18 20:10 U Cocaine Metab Screen NEGATIVE (NEGATIVE) 01/18/18 20:10 U Cannabinoids Screen NEGATIVE (NEGATIVE) 01/18/18 20:10 RPR NONREACTIVE (NONREACTIVE) 01/18/18 20:21 - Physical Exam Vitals and I&O: Vital Signs Temp 97.0 F 01/23/18 08:00 Pulse 81 01/23/18 13:07 Resp 20 01/23/18 10:39 BP 121/82 01/23/18 08:28 Pulse Ox 96 01/23/18 08:00 Intake & Output 01/22/18 01/23/18 01/23/18 18:59 06:59 18:59 Intake Total 5112.328 8484.833 1000 Output Total 450 700 Balance 794.667 764.074 3004 Weight (lbs) 94.347 kg 93.894 kg Intake: Intake, IV Amount 094.413 1562.833 1000 Piperacillin Sodium/ 50 100 Tazobact 2.25 gm In Sodium Chloride 0.9% 50 ml @ 100 mls/hr IV Q8HR [facility] Rx#:[id number] Sodium Chloride 0.45% 1, 013.725 9756 000 ml @ 125 mls/hr IV . Q8H [facility] Rx#:[id number] Sodium Chloride 0.9% 500 194.667 ml @ TKO IV .Q0M [facility] Rx#: [id number] Oral 1000 600 Output: Urine 450 700 Other: # Bowel Movements 3 Stool Characteristics Soft Soft Soft Liquid Formed Formed Active Medications: Current Medications Albuterol/Ipratropium (Duoneb Neb) 3 ml HHN Q6HRT [facility] Stop: 03/20/18 12:59 Last Admin: 01/23/18 06:56 Dose: 3 ml Aspirin (Aspirin Chewable) 81 mg PO DAILY [facility] Stop: 03/23/18 08:59 Last Admin: 01/23/18 08:34 Dose: Not Given Diltiazem HCl (Cardizem) 60 mg PO Q6HR [facility] Stop: 03/23/18 00:00 Last Admin: 01/23/18 13:07 Dose: 60 mg Piperacillin Sod/Tazobactam (Sod 2.25 gm/ Sodium Chloride) 50 mls @ 100 mls/hr IV Q8HR [facility] Stop: 03/20/18 12:59 Last Admin: 01/23/18 13:05 Dose: 100 mls/hr Sodium Chloride (Nacl 0.9%) 500 mls @ 0 mls/hr IV .Q0M [facility] PRN Reason: TKO Stop: 03/22/18 20:14 Last Infusion: 01/22/18 18:00 Dose: 0 mls/hr Sodium Chloride (Nacl 0.45%) 1,000 mls @ 125 mls/hr IV .Q8H [facility] Stop: 03/23/18 17:44 Last Admin: 01/23/18 11:06 Dose: 125 mls/hr Insulin Aspart (Novolog) 0 units SUBQ ACHS [facility] PRN Reason: Protocol Stop: 03/21/18 11:29 Last Admin: 01/23/18 13:04 Dose: 7 units Insulin Detemir (Levemir Insulin) 20 units SUBQ DAILY [facility] PRN Reason: Protocol Stop: 03/22/18 09:23 Last Admin: 01/23/18 08:28 Dose: 20 units Lactobacillus Rhamnosus (Culturelle 15b) 1 each PO DAILY [facility] Stop: 03/22/18 08:59 Last Admin: 01/23/18 08:27 Dose: 1 each Lactulose (Cephulac) 45 gm PO Q6HRT [facility] Stop: 03/21/18 12:59 Last Admin: 01/23/18 13:14 Dose: Not Given Lorazepam (Ativan) 1 mg PO Q4HR PRN; Protocol PRN Reason: Anxiety Stop: 03/20/18 10:08 Metformin HCl (Glucophage) 850 mg PO BIDWM [facility] Stop: 03/22/18 17:59 Last Admin: 01/23/18 08:28 Dose: 850 mg Metoprolol Tartrate (Lopressor) 25 mg PO BID [facility] Stop: 03/23/18 08:59 Last Admin: 01/23/18 08:28 Dose: 25 mg Miscellaneous (Probiotic Screen) 1 ea [facility] PRN PRN PRN Reason: PROTOCOL Stop: 03/21/18 14:14 Quetiapine Fumarate (Seroquel) 100 mg PO BID [facility] PRN Reason: Protocol Stop: 03/21/18 08:59 Last Admin: 01/23/18 08:26 Dose: 100 mg Rifaximin (Xifaxan) 550 mg PO BID [facility] Stop: 03/20/18 16:59 Last Admin: 01/23/18 08:26 Dose: 550 mg General: Alert, Oriented x3, Cooperative HEENT: Atraumatic, PERRLA, EOMI Neck: Supple, JVD Cardiovascular: Regular rate, Normal S1, Normal S2 Lungs: Clear to auscultation Abdomen: Bowel sounds, Soft, Obese Extremities: Other (No edmea,cyanosis,clubbing.) Neurological: Normal gait, Normal speech Skin: Rash Psych/Mental Status: Mental status NL Assessment/Plan - Assessment Assessment: Altered mental status RLL pneumonia. Insulin requiring DM Cirrhosis of liver. Psych disorder Cholelithiasis. Thrombocytopenia. DJD Debility Hepatic encephalopathy better. - Plan Plan: Med surg status. IVF Iv antibiotics Lactulose Psych meds Psych follow up PT and OT Symptoms control. General nursing care Follow lab Follow consultants recommendations Continue current care Discussed with staff. Nutritional Asmnt/Malnutr-PDOC - Dietary Evaluation Malnutrition Findings (Please click <Entered> for more info): Nutritional Asmnt/Malnutrition Start: 01/19/18 18: 00 Text: Status: Complete Freq: Document 01/19/18 18:00 [facility] (Rec: 01/19/18 18:15 HENG [id number]) Nutritional Asmnt/Malnutrition Patient General Information Nutritional Screening High Risk Consult Diagnosis uncontrolled DM Pertinent Medical Hx/Surgical Hx HTN, Asthm/COPD, CABG, anxiety , HCV, rhabdomyolysis, encephalopathy, anxiety Subjective Information Consult received for BS >180 at admission. Pt transfered to ICU in the afternoon. RN reported pt now is NPO and may start TF. Pt on insulin drip noted. Current Diet Order/ Nutrition Support NPO Pertinent Medications insulin drip, piperacillin, de -0.45ns w 20 meq kcl, nacl 0.9 % Pertinent Labs 01/19 Na 134, K 3.9, Cl 111, BUN 21, Cr 1.0, Glucose 165 ( trending down), POC 150 01/18 A1c 10.3 Nutritional Hx/Data Height 1.73 m Height (Calculated Centimeters) 172.7 Current Weight (lbs) 81.647 kg Weight (Calculated Kilograms) 81.6 Weight (Calculated Grams) 52361.6 [place] Body Weight 154 Body Mass Index (BMI) 27.3 Weight Status Overweight GI Symptoms GI Symptoms None Last BM no record Difficult in: None Skin Integrity/Comment: everardo Pendleton Estimated Nutritional Goals BEE in Kcals: Adj wt of IBW Calories/Kcals/Kg 25-30 Kcals Calculated 7434-2061 Protein: Adj wt of IBW Protein g/k-1.2 Protein Calculated 73-88 Fluid: ml 6316-2881 Nutritional Problem 1. Problem Problem altered nutrition related lab values Etiology endocrine dysfunction Signs/Symptoms: Glucose 165-794, POC 150-576 A1c 10.3 Intervention/Recommendation Comments 1. Monitor NPO status. 2. If TF needed, recommend Diabetisource AC at 60ml/hr continuous. This will provide 1728kcal and 86g protein, meeting 95% of calorie needs and 100% of protein needs. 3. Monitor wt, labs and skin integrity 4. F/U as high risk in 2-3 day , 3/2-3/3 Expected Outcomes/Goals Expected Outcomes/Goals 1. pt to meet at least 75% of nutritional needs in 2-3 days. 2. Wt stability, skin to remain intact, labs to approach WNL.
[2018-01-23 16:12] LABS: CERULOPLASMIN 30.3 mg/dL (16.0-31.0); FERRITIN 45 ng/mL (30-400); GAMMA GLUTAMYL TRANSFERASE 93 IU/L (0-65); HEP A AB IGM Negative (Negative); HEP B CORE IGM Negative (Negative); HEP B SURFACE AG QL Negative (Negative); HEP C ANTIBODY >11.0 s/co ratio (0.0-0.9); IRON LC 303 ug/dL (38-169); TIBC (LC) 379 ug/dL (250-450); UIBC 76 ug/dL (111-343)
[2018-01-23] MEDS ORDERED: Sodium Chloride 0.9% 500 ML IV ONE (20:13)
[2018-01-23] MEDS ORDERED: Norepinephrine 4 mg/4mL Vial IV ONE (20:51)
[2018-01-23] MEDS: D5-0.9%NS 1,000 ML IV SCH (22:25)
[2018-01-24] MEDS ORDERED: Norepinephrine 4 mg/4mL Vial IV ONE ×2 (00:08→05:24)
[2018-01-24] MEDS: Albuterol/Ipratropium Neb 3 ML AERS HHN SCH ×4 (01:57→19:21)
[2018-01-24] MEDS: Lactulose 10 Gm/15 mL 30mL UDC PO SCH ×4 (02:23→18:20)
[2018-01-24] MEDS: Diltiazem 30 mg Tab PO SCH ×4 (02:23→16:59)
[2018-01-24] MEDS: INSULIN ASPART, RECOMBINANT 100 UNITS/ML SUBQ SCH ×5 (02:24→21:05)
[2018-01-24 05:14] LABS: % BASOPHILS 4.9 % (0.0-2.0); % EOSINOPHILS 4.5 % (0.0-5.0); % LYMPHOCYTES 32.2 % (20.0-50.0); % MONOCYTES 14.5 % (2.0-10.0); % NEUTROPHILS 43.9 % (40.0-80.0); BASOPHILE ABSOLUTE 0.3 Th/cumm (0-0.2); EOSINOPHILE ABSOLUTE 0.3 Th/cmm (0.1-0.4); HEMATOCRIT 32.8 % (41.0-60); HEMOGLOBIN 10.9 gm/dL (12-16); LYMPHOCYTE ABSOLUTE 2.2 Th/cmm (1.5-3.0); MEAN CELL VOLUME 81.1 fl (80-99); MEAN CORPUSCULAR HEMOGLOBIN 26.9 pg (26.0-30.0); MEAN CORPUSCULAR HGB CONC 33.1 pg (28.0-36.0); MEAN PLATELET VOLUME 10.5 fl; NEUTROPHILE ABSOLUTE 3.1 Th/cmm (1.8-8.0); PLATELET COUNT 61 Th/cmm (150-400); RED BLOOD COUNT 4.05 Mil/cmm (4.30-5.70); RED CELL DISTRIBUTION WIDTH 16.5 % (11.5-20.0); WHITE BLOOD COUNT 6.9 Th/cmm (4.8-10.8)
[2018-01-24 05:27] LABS: ALB/GLOB RATIO 0.8 (1.0-1.8); ALBUMIN 2.5 gm/dL (4.2-5.5); ANION GAP 10.4 (7.0-16.0); BILIRUBIN,TOTAL 1.3 mg/dL (0.3-1.0); CALCIUM SERUM 9.8 mg/dL (8.6-10.3); CARBON DIOXIDE 15.8 mEq/L (21.0-31.0); CREATININE - SERUM 1.6 mg/dL (0.7-1.3); GFR AFRICAN-AMERICAN 57.2 ml/min (>90); GFR NON AFRICAN-AMERICAN 47.3 ml/min; POTASSIUM SERUM 4.2 mEq/L (3.5-5.1); TOTAL PROTEIN,SERUM 5.7 gm/dL (6.0-8.3)
[2018-01-24] MEDS: D5-0.9%NS 1,000 ML IV SCH ×2 (06:49→17:02)
--- NOTE | 2018-01-24 07:49 | GI Progress Note ---
Subjective - Review of Systems Subjective: AWAKE SOME CONFUSION DENIES ABD PAIN Objective - Results Result Diagrams: 01/24/18 04:10 01/24/18 04:10 Recent Labs: Laboratory Last Values WBC 6.9 Th/cmm (4.8-10.8) 01/24/18 04:10 RBC 4.05 Mil/cmm (4.30-5.70) L 01/24/18 04:10 Hgb 10.9 gm/dL (12-16) L 01/24/18 04:10 Hct 32.8 % (41.0-60) L 01/24/18 04:10 MCV 81.1 fl (80-99) 01/24/18 04:10 MCH 26.9 pg (26.0-30.0) 01/24/18 04:10 MCHC Differential 33.1 pg (28.0-36.0) 01/24/18 04:10 RDW 16.5 % (11.5-20.0) 01/24/18 04:10 Plt Count 61 Th/cmm (150-400) L 01/24/18 04:10 MPV 10.5 fl 01/24/18 04:10 Neutrophils % 43.9 % (40.0-80.0) 01/24/18 04:10 Band Neutrophils % 1 % (0-10) 01/23/18 05:40 Lymphocytes % 32.2 % (20.0-50.0) 01/24/18 04:10 Monocytes % 14.5 % (2.0-10.0) H 01/24/18 04:10 Eosinophils % 4.5 % (0.0-5.0) 01/24/18 04:10 Basophils % 4.9 % (0.0-2.0) H 01/24/18 04:10 Neutrophils (Manual) 49 % (40-80) 01/23/18 05:40 Lymphocytes 33 % (20-50) 01/23/18 05:40 Monocytes 13 % (2-10) H 01/23/18 05:40 Eosinophils 3 % (0-5) 01/23/18 05:40 Basophils 1 % (0-3) 01/23/18 05:40 Platelet Estimate DECREASED PLATELETS (NORMAL) 01/23/18 05:40 Specimen Source Arterial 01/20/18 09:34 Sample Site Left Radial 01/20/18 09:34 pH 7.40 (7.35-7.45) 01/20/18 09:34 pCO2 29.0 mmHg (35.0-45.0) L 01/20/18 09:34 pO2 80.0 mmHg (80.0-100.0) 01/20/18 09:34 HCO3 20.5 mEq/L (20.0-26.0) 01/20/18 09:34 Base Excess -5.6 mEq/L (-3.0-3.0) L 01/20/18 09:34 O2 Saturation 96.0 % (92.0-100.0) 01/20/18 09:34 Baltazar Test YES 01/20/18 09:34 Vent Rate NA 01/20/18 09:34 Inspired O2 21 01/20/18 09:34 Tidal Volume NA 01/20/18 09:34 PEEP NA 01/20/18 09:34 Pressure (ins/psv/peep) NA 01/20/18 09:34 Critical Value E.MULLEN 01/20/18 09:34 Sodium 128 mEq/L (136-145) L 01/24/18 04:10 Potassium 4.2 mEq/L (3.5-5.1) 01/24/18 04:10 Chloride 106 mEq/L (98-107) 01/24/18 04:10 Carbon Dioxide 15.8 mEq/L (21.0-31.0) L 01/24/18 04:10 Anion Gap 10.4 (7.0-16.0) 01/24/18 04:10 BUN 31 mg/dL (7-25) H 01/24/18 04:10 Creatinine 1.6 mg/dL (0.7-1.3) H 01/24/18 04:10 Est GFR ( Amer) 57.2 ml/min (>90) 01/24/18 04:10 Est GFR (Non-Af Amer) 47.3 ml/min 01/24/18 04:10 BUN/Creatinine Ratio 19.4 01/24/18 04:10 Glucose 290 mg/dL (70-105) H 01/24/18 04:10 POC Glucose 347 MG/DL (70 - 105) H 01/24/18 06:58 Hemoglobin A1c % 10.3 % (4.0-6.0) H 01/18/18 20:51 Calcium 9.8 mg/dL (8.6-10.3) 01/24/18 04:10 Phosphorus 3.2 mg/dL (2.5-5.0) 01/19/18 12:10 Magnesium 1.6 mg/dL (1.9-2.7) L 01/23/18 05:40 Iron 303 ug/dL (38-169) H 01/20/18 09:45 TIBC 379 ug/dL (250-450) 01/20/18 09:45 Iron Saturation 80 % (15-55) H 01/20/18 09:45 Unsaturated IBC 76 ug/dL (111-343) L 01/20/18 09:45 Ferritin 45 ng/mL (30-400) 01/20/18 09:45 Total Bilirubin 1.3 mg/dL (0.3-1.0) H 01/24/18 04:10 Direct Bilirubin 0.95 mg/dL (0.0-0.2) H 01/20/18 05:30 GGTP 93 IU/L (0-65) H 01/20/18 09:45 AST 66 U/L (13-39) H 01/24/18 04:10 ALT 39 U/L (7-52) 01/24/18 04:10 Alkaline Phosphatase 166 U/L (34-104) H 01/24/18 04:10 Ammonia 186 umol/L (16-53) H 01/24/18 04:10 Creatine Kinase 616 U/L (30-223) H 01/19/18 16:00 CK-MB (CK-2) 10.3 ng/mL (0.6-6.3) H 01/19/18 16:00 Troponin I 0.19 ng/mL (0.01-0.05) H* 01/19/18 16:00 B-Natriuretic Peptide 35.1 pg/mL (5.0-100.0) 01/18/18 23:57 Total Protein 5.7 gm/dL (6.0-8.3) L 01/24/18 04:10 Albumin 2.5 gm/dL (4.2-5.5) L 01/24/18 04:10 Globulin 3.2 gm/dL 01/24/18 04:10 Albumin/Globulin Ratio 0.8 (1.0-1.8) L 01/24/18 04:10 Ceruloplasmin 30.3 mg/dL (16.0-31.0) 01/20/18 09:45 Amylase 148 U/L (29-103) H 01/18/18 20:51 Lipase 179 U/L (11-82) H 01/18/18 20:51 TSH 3.58 uIU/ml (0.34-5.60) 01/18/18 20:21 PTH Interpretation (()) 01/19/18 12:10 PTH Intact 9 pg/mL (15-65) L 01/19/18 12:10 Calcium (PTH Intact) 11.0 mg/dL (8.7-10.2) H 01/19/18 12:10 Urine Source RANDOM 01/18/18 20:10 Urine Color YELLOW 01/18/18 20:10 Urine Clarity CLEAR (CLEAR) 01/18/18 20:10 Urine pH 7.0 (4.6 - 8.0) 01/18/18 20:10 Ur Specific [place] 1.010 (1.005-1.030) 01/18/18 20:10 Urine Protein NEGATIVE mg/dL (NEGATIVE) 01/18/18 20:10 Urine Glucose (UA) >=1000 mg/dL (NEGATIVE) H 01/18/18 20:10 Urine Ketones NEGATIVE mg/dL (NEGATIVE) 01/18/18 20:10 Urine Blood SMALL (NEGATIVE) H 01/18/18 20:10 Urine Nitrate NEGATIVE (NEGATIVE) 01/18/18 20:10 Urine Bilirubin NEGATIVE (NEGATIVE) 01/18/18 20:10 Urine Urobilinogen 0.2 E.U./dL (0.2 - 1.0) 01/18/18 20:10 Ur Leukocyte Esterase NEGATIVE (NEGATIVE) 01/18/18 20:10 Urine RBC 2-5 /hpf (0-5) H 01/18/18 20:10 Urine WBC NONE SEEN /hpf (0-5) 01/18/18 20:10 Ur Epithelial Cells NONE SEEN /lpf (FEW) 01/18/18 20:10 Urine Bacteria NONE SEEN /hpf (NONE SEEN) 01/18/18 20:10 Urine Opiates Screen NEGATIVE (NEGATIVE) 01/18/18 20:10 Urine Methadone Screen NEGATIVE (NEGATIVE) 01/18/18 20:10 Acetaminophen < 10.0 ug/mL (10.0-30.0) L 01/20/18 05:30 Ur Barbiturates Screen NEGATIVE (NEGATIVE) 01/18/18 20:10 Ur Tricyclics Screen NEGATIVE (NEGATIVE) 01/18/18 20:10 Ur Phencyclidine Scrn NEGATIVE (NEGATIVE) 01/18/18 20:10 Amphetamines Screen NEGATIVE (NEGATIVE) 01/18/18 20:10 U Methamphetamines Scrn NEGATIVE (NEGATIVE) 01/18/18 20:10 U Benzodiazepines Scrn NEGATIVE (NEGATIVE) 01/18/18 20:10 U Cocaine Metab Screen NEGATIVE (NEGATIVE) 01/18/18 20:10 U Cannabinoids Screen NEGATIVE (NEGATIVE) 01/18/18 20:10 RPR NONREACTIVE (NONREACTIVE) 01/18/18 20:21 Hepatitis A IgM Ab Negative (Negative) 01/20/18 09:45 Hep Bs Antigen Negative (Negative) 01/20/18 09:45 Hep B Core IgM Ab Negative (Negative) 01/20/18 09:45 Hepatitis C Antibody >11.0 s/co ratio (0.0-0.9) H 01/20/18 09:45 - Physical Exam Vitals and I&O: Vital Signs Temp 98.9 F 01/24/18 04:00 Pulse 90 01/24/18 06:49 Resp 20 01/24/18 04:00 BP 108/75 01/24/18 04:00 Pulse Ox 98 01/24/18 04:00 Intake & Output 01/23/18 01/24/18 01/24/18 18:59 06:59 18:59 Intake Total 1550 1318.931 158.75 Output Total 2100 Balance -550 1318.931 158.75 Weight (lbs) 93.894 kg Intake: Intake, IV Amount 1000 1318.931 158.75 D5-0.9%Ns 1,000 ml @ 100 840 mls/hr IV .Q10H [facility] Rx#: [id number] Norepinephrine 4 mg In 328.931 158.75 Dextrose 5% 250 ml @ 5 MCG/MIN 19.05 mls/hr IV TITR PRN Rx#:[id number] Piperacillin Sodium/ 150 Tazobact 2.25 gm In Sodium Chloride 0.9% 50 ml @ 100 mls/hr IV Q8HR [facility] Rx#:[id number] Sodium Chloride 0.45% 1, 1000 000 ml @ 125 mls/hr IV . Q8H [facility] Rx#:[id number] Oral 550 Output: Urine 2100 Other: # Bowel Movements 0 Stool Characteristics Soft Formed Active Medications: Current Medications Albuterol/Ipratropium (Duoneb Neb) 3 ml HHN Q6HRT [facility] Stop: 03/20/18 12:59 Last Admin: 01/24/18 01:57 Dose: 3 ml Aspirin (Aspirin Chewable) 81 mg PO DAILY [facility] Stop: 03/23/18 08:59 Last Admin: 01/23/18 08:34 Dose: Not Given Diltiazem HCl (Cardizem) 60 mg PO Q6HR [facility] Stop: 03/23/18 00:00 Last Admin: 01/24/18 06:49 Dose: Not Given Piperacillin Sod/Tazobactam (Sod 2.25 gm/ Sodium Chloride) 50 mls @ 100 mls/hr IV Q8HR [facility] Stop: 03/20/18 12:59 Last Infusion: 01/24/18 06:15 Dose: Infused Sodium Chloride (Nacl 0.9%) 500 mls @ 0 mls/hr IV .Q0M [facility] PRN Reason: TKO Stop: 03/22/18 20:14 Last Infusion: 01/22/18 18:00 Dose: 0 mls/hr Norepinephrine Bitartrate 4 mg (/ Dextrose) 254 mls @ 19.05 mls/hr IV TITR PRN ; Protocol; 5 MCG/MIN PRN Reason: BP MAINTENANCE (PER PROTOCOL) Stop: 03/24/18 20:19 Last Titration: 01/24/18 07:38 Dose: Infused Dextrose/Sodium Chloride (D5-0.9%Ns) 1,000 mls @ 100 mls/hr IV .Q10H [facility] Stop: 03/24/18 20:29 Last Admin: 01/24/18 06:49 Dose: 100 mls/hr Insulin Aspart (Novolog) 0 units SUBQ ACHS [facility] PRN Reason: Protocol Stop: 03/21/18 11:29 Last Admin: 01/24/18 06:59 Dose: 9 units Insulin Detemir (Levemir Insulin) 20 units SUBQ DAILY [facility] PRN Reason: Protocol Stop: 03/22/18 09:23 Last Admin: 01/23/18 08:28 Dose: 20 units Lactobacillus Rhamnosus (Culturelle 15b) 1 each PO DAILY [facility] Stop: 03/22/18 08:59 Last Admin: 01/23/18 08:27 Dose: 1 each Lactulose (Cephulac) 45 gm PO Q6HRT [facility] Stop: 03/21/18 12:59 Last Admin: 01/24/18 06:50 Dose: 45 gm Lorazepam (Ativan) 1 mg PO Q4HR PRN; Protocol PRN Reason: Anxiety Stop: 03/20/18 10:08 Last Admin: 01/24/18 06:35 Dose: 1 mg Metformin HCl (Glucophage) 850 mg PO BIDWM [facility] Stop: 03/22/18 17:59 Last Admin: 01/24/18 07:04 Dose: 850 mg Metoprolol Tartrate (Lopressor) 25 mg PO BID [facility] Stop: 03/23/18 08:59 Last Admin: 01/23/18 17:36 Dose: 25 mg Miscellaneous (Probiotic Screen) 1 ea [facility] PRN PRN PRN Reason: PROTOCOL Stop: 03/21/18 14:14 Quetiapine Fumarate (Seroquel) 100 mg PO BID [facility] PRN Reason: Protocol Stop: 03/21/18 08:59 Last Admin: 01/23/18 17:35 Dose: 100 mg Rifaximin (Xifaxan) 550 mg PO BID [facility] Stop: 03/20/18 16:59 Last Admin: 01/23/18 17:35 Dose: 550 mg General: Alert, Oriented x3, Cooperative HEENT: Atraumatic, PERRLA, EOMI Neck: Supple, JVD Cardiovascular: Regular rate, Normal S1, Normal S2 Lungs: Clear to auscultation Abdomen: Bowel sounds, Soft, Obese Extremities: Other (No edmea,cyanosis,clubbing.) Neurological: Normal gait, Normal speech Skin: Rash Psych/Mental Status: Mental status NL Assessment/Plan - Assessment Assessment: 57 YO MALE WITH ETOH CIRRHOSIS HAS HEPATIC ENCEPHALOPATHY IRMA SHOWED GALLSTONES BUT HIDA SCAN WAS NEGATIVE - PT IS ASYMPTOMATIC 1.CONT XIFAXAN AND LACTULOSE 2.CONSIDER SUKHDEEP IN THE FUTURE IF SYMPTOMATIC 3.WILL NEED OUTPATIENT HEPATOLOGY MANAGEMENT
[2018-01-24] MEDS: Insulin Detemir 100 units/mL 10mL Vial SUBQ SCH (08:09)
[2018-01-24] MEDS: Aspirin 81mg Chewable Tab PO SCH (08:43)
[2018-01-24] MEDS: Lactobacillus Rhamnosus GG 15 Billion CFU CAP.SPRINK PO SCH (08:43)
[2018-01-24] MEDS ORDERED: Lactulose 10 Gm/15 mL 30mL UDC PO SCH (11:15)
--- NOTE | 2018-01-24 12:09 | General Progress Note ---
Subjective - Review of Systems Subjective: Patient is seen and examined. Patient was transfered toICU due to low bp. Feeling lethargic Objective - Results Result Diagrams: 01/24/18 04:10 01/24/18 04:10 Recent Labs: Laboratory Last Values WBC 6.9 Th/cmm (4.8-10.8) 01/24/18 04:10 RBC 4.05 Mil/cmm (4.30-5.70) L 01/24/18 04:10 Hgb 10.9 gm/dL (12-16) L 01/24/18 04:10 Hct 32.8 % (41.0-60) L 01/24/18 04:10 MCV 81.1 fl (80-99) 01/24/18 04:10 MCH 26.9 pg (26.0-30.0) 01/24/18 04:10 MCHC Differential 33.1 pg (28.0-36.0) 01/24/18 04:10 RDW 16.5 % (11.5-20.0) 01/24/18 04:10 Plt Count 61 Th/cmm (150-400) L 01/24/18 04:10 MPV 10.5 fl 01/24/18 04:10 Neutrophils % 43.9 % (40.0-80.0) 01/24/18 04:10 Band Neutrophils % 1 % (0-10) 01/23/18 05:40 Lymphocytes % 32.2 % (20.0-50.0) 01/24/18 04:10 Monocytes % 14.5 % (2.0-10.0) H 01/24/18 04:10 Eosinophils % 4.5 % (0.0-5.0) 01/24/18 04:10 Basophils % 4.9 % (0.0-2.0) H 01/24/18 04:10 Neutrophils (Manual) 49 % (40-80) 01/23/18 05:40 Lymphocytes 33 % (20-50) 01/23/18 05:40 Monocytes 13 % (2-10) H 01/23/18 05:40 Eosinophils 3 % (0-5) 01/23/18 05:40 Basophils 1 % (0-3) 01/23/18 05:40 Platelet Estimate DECREASED PLATELETS (NORMAL) 01/23/18 05:40 Specimen Source Arterial 01/20/18 09:34 Sample Site Left Radial 01/20/18 09:34 pH 7.40 (7.35-7.45) 01/20/18 09:34 pCO2 29.0 mmHg (35.0-45.0) L 01/20/18 09:34 pO2 80.0 mmHg (80.0-100.0) 01/20/18 09:34 HCO3 20.5 mEq/L (20.0-26.0) 01/20/18 09:34 Base Excess -5.6 mEq/L (-3.0-3.0) L 01/20/18 09:34 O2 Saturation 96.0 % (92.0-100.0) 01/20/18 09:34 Baltazar Test YES 01/20/18 09:34 Vent Rate NA 01/20/18 09:34 Inspired O2 21 01/20/18 09:34 Tidal Volume NA 01/20/18 09:34 PEEP NA 01/20/18 09:34 Pressure (ins/psv/peep) NA 01/20/18 09:34 Critical Value E.MULLEN 01/20/18 09:34 Sodium 128 mEq/L (136-145) L 01/24/18 04:10 Potassium 4.2 mEq/L (3.5-5.1) 01/24/18 04:10 Chloride 106 mEq/L (98-107) 01/24/18 04:10 Carbon Dioxide 15.8 mEq/L (21.0-31.0) L 01/24/18 04:10 Anion Gap 10.4 (7.0-16.0) 01/24/18 04:10 BUN 31 mg/dL (7-25) H 01/24/18 04:10 Creatinine 1.6 mg/dL (0.7-1.3) H 01/24/18 04:10 Est GFR ( Amer) 57.2 ml/min (>90) 01/24/18 04:10 Est GFR (Non-Af Amer) 47.3 ml/min 01/24/18 04:10 BUN/Creatinine Ratio 19.4 01/24/18 04:10 Glucose 290 mg/dL (70-105) H 01/24/18 04:10 POC Glucose 347 MG/DL (70 - 105) H 01/24/18 06:58 Hemoglobin A1c % 10.3 % (4.0-6.0) H 01/18/18 20:51 Calcium 9.8 mg/dL (8.6-10.3) 01/24/18 04:10 Phosphorus 3.2 mg/dL (2.5-5.0) 01/19/18 12:10 Magnesium 1.6 mg/dL (1.9-2.7) L 01/23/18 05:40 Iron 303 ug/dL (38-169) H 01/20/18 09:45 TIBC 379 ug/dL (250-450) 01/20/18 09:45 Iron Saturation 80 % (15-55) H 01/20/18 09:45 Unsaturated IBC 76 ug/dL (111-343) L 01/20/18 09:45 Ferritin 45 ng/mL (30-400) 01/20/18 09:45 Total Bilirubin 1.3 mg/dL (0.3-1.0) H 01/24/18 04:10 Direct Bilirubin 0.95 mg/dL (0.0-0.2) H 01/20/18 05:30 GGTP 93 IU/L (0-65) H 01/20/18 09:45 AST 66 U/L (13-39) H 01/24/18 04:10 ALT 39 U/L (7-52) 01/24/18 04:10 Alkaline Phosphatase 166 U/L (34-104) H 01/24/18 04:10 Ammonia 186 umol/L (16-53) H 01/24/18 04:10 Creatine Kinase 616 U/L (30-223) H 01/19/18 16:00 CK-MB (CK-2) 10.3 ng/mL (0.6-6.3) H 01/19/18 16:00 Troponin I 0.19 ng/mL (0.01-0.05) H* 01/19/18 16:00 B-Natriuretic Peptide 35.1 pg/mL (5.0-100.0) 01/18/18 23:57 Total Protein 5.7 gm/dL (6.0-8.3) L 01/24/18 04:10 Albumin 2.5 gm/dL (4.2-5.5) L 01/24/18 04:10 Globulin 3.2 gm/dL 01/24/18 04:10 Albumin/Globulin Ratio 0.8 (1.0-1.8) L 01/24/18 04:10 Ceruloplasmin 30.3 mg/dL (16.0-31.0) 01/20/18 09:45 Amylase 148 U/L (29-103) H 01/18/18 20:51 Lipase 179 U/L (11-82) H 01/18/18 20:51 TSH 3.58 uIU/ml (0.34-5.60) 01/18/18 20:21 PTH Interpretation (()) 01/19/18 12:10 PTH Intact 9 pg/mL (15-65) L 01/19/18 12:10 Calcium (PTH Intact) 11.0 mg/dL (8.7-10.2) H 01/19/18 12:10 Urine Source RANDOM 01/18/18 20:10 Urine Color YELLOW 01/18/18 20:10 Urine Clarity CLEAR (CLEAR) 01/18/18 20:10 Urine pH 7.0 (4.6 - 8.0) 01/18/18 20:10 Ur Specific [place] 1.010 (1.005-1.030) 01/18/18 20:10 Urine Protein NEGATIVE mg/dL (NEGATIVE) 01/18/18 20:10 Urine Glucose (UA) >=1000 mg/dL (NEGATIVE) H 01/18/18 20:10 Urine Ketones NEGATIVE mg/dL (NEGATIVE) 01/18/18 20:10 Urine Blood SMALL (NEGATIVE) H 01/18/18 20:10 Urine Nitrate NEGATIVE (NEGATIVE) 01/18/18 20:10 Urine Bilirubin NEGATIVE (NEGATIVE) 01/18/18 20:10 Urine Urobilinogen 0.2 E.U./dL (0.2 - 1.0) 01/18/18 20:10 Ur Leukocyte Esterase NEGATIVE (NEGATIVE) 01/18/18 20:10 Urine RBC 2-5 /hpf (0-5) H 01/18/18 20:10 Urine WBC NONE SEEN /hpf (0-5) 01/18/18 20:10 Ur Epithelial Cells NONE SEEN /lpf (FEW) 01/18/18 20:10 Urine Bacteria NONE SEEN /hpf (NONE SEEN) 01/18/18 20:10 Urine Opiates Screen NEGATIVE (NEGATIVE) 01/18/18 20:10 Urine Methadone Screen NEGATIVE (NEGATIVE) 01/18/18 20:10 Acetaminophen < 10.0 ug/mL (10.0-30.0) L 01/20/18 05:30 Ur Barbiturates Screen NEGATIVE (NEGATIVE) 01/18/18 20:10 Ur Tricyclics Screen NEGATIVE (NEGATIVE) 01/18/18 20:10 Ur Phencyclidine Scrn NEGATIVE (NEGATIVE) 01/18/18 20:10 Amphetamines Screen NEGATIVE (NEGATIVE) 01/18/18 20:10 U Methamphetamines Scrn NEGATIVE (NEGATIVE) 01/18/18 20:10 U Benzodiazepines Scrn NEGATIVE (NEGATIVE) 01/18/18 20:10 U Cocaine Metab Screen NEGATIVE (NEGATIVE) 01/18/18 20:10 U Cannabinoids Screen NEGATIVE (NEGATIVE) 01/18/18 20:10 RPR NONREACTIVE (NONREACTIVE) 01/18/18 20:21 Hepatitis A IgM Ab Negative (Negative) 01/20/18 09:45 Hep Bs Antigen Negative (Negative) 01/20/18 09:45 Hep B Core IgM Ab Negative (Negative) 01/20/18 09:45 Hepatitis C Antibody >11.0 s/co ratio (0.0-0.9) H 01/20/18 09:45 - Physical Exam Vitals and I&O: Vital Signs Temp 97.7 F 01/24/18 11:00 Pulse 93 01/24/18 11:00 Resp 23 01/24/18 11:00 BP 129/87 01/24/18 11:00 Pulse Ox 100 01/24/18 11:00 Intake & Output 01/23/18 01/24/18 01/24/18 18:59 06:59 18:59 Intake Total 1550 1878.931 158.75 Output Total 2100 520 Balance -550 1358.931 158.75 Weight (lbs) 93.894 kg 94.347 kg Intake: Intake, IV Amount 1000 1318.931 158.75 D5-0.9%Ns 1,000 ml @ 100 840 mls/hr IV .Q10H [facility] Rx#: [id number] Norepinephrine 4 mg In 328.931 158.75 Dextrose 5% 250 ml @ 5 MCG/MIN 19.05 mls/hr IV TITR PRN Rx#:[id number] Piperacillin Sodium/ 150 Tazobact 2.25 gm In Sodium Chloride 0.9% 50 ml @ 100 mls/hr IV Q8HR [facility] [place] Rx#:[id number] Sodium Chloride 0.45% 1, 1000 000 ml @ 125 mls/hr IV . Q8H [facility] [place] Rx#:[id number] Oral 550 560 Output: Urine 2100 520 Other: # Bowel Movements 0 1 Stool Characteristics Soft Soft Formed Liquid Active Medications: Current Medications Albuterol/Ipratropium (Duoneb Neb) 3 ml HHN Q6HRT [facility] [place] Stop: 03/20/18 12:59 Last Admin: 01/24/18 07:56 Dose: 3 ml Aspirin (Aspirin Chewable) 81 mg PO DAILY [facility] [place] Stop: 03/23/18 08:59 Last Admin: 01/24/18 08:43 Dose: 81 mg Diltiazem HCl (Cardizem) 60 mg PO Q6HR [facility] [place] Stop: 03/23/18 00:00 Last Admin: 01/24/18 06:49 Dose: Not Given Piperacillin Sod/Tazobactam (Sod 2.25 gm/ Sodium Chloride) 50 mls @ 100 mls/hr IV Q8HR [facility] [place] Stop: 03/20/18 12:59 Last Infusion: 01/24/18 06:15 Dose: Infused Sodium Chloride (Nacl 0.9%) 500 mls @ 0 mls/hr IV .Q0M [facility] PRN Reason: TKO Stop: 03/22/18 20:14 Last Infusion: 01/22/18 18:00 Dose: 0 mls/hr Norepinephrine Bitartrate 4 mg (/ Dextrose) 254 mls @ 19.05 mls/hr IV TITR PRN ; Protocol; 5 MCG/MIN PRN Reason: BP MAINTENANCE (PER PROTOCOL) Stop: 03/24/18 20:19 Last Titration: 01/24/18 07:38 Dose: Infused Dextrose/Sodium Chloride (D5-0.9%Ns) 1,000 mls @ 100 mls/hr IV .Q10H [facility] [place] Stop: 03/24/18 20:29 Last Admin: 01/24/18 06:49 Dose: 100 mls/hr Insulin Aspart (Novolog) 0 units SUBQ ACHS [facility] PRN Reason: Protocol Stop: 03/21/18 11:29 Last Admin: 01/24/18 06:59 Dose: 9 units Insulin Detemir (Levemir Insulin) 20 units SUBQ DAILY [facility] [place] PRN Reason: Protocol Stop: 03/22/18 09:23 Last Admin: 01/24/18 08:09 Dose: 20 units Lactobacillus Rhamnosus (Culturelle 15b) 1 each PO DAILY [facility] Stop: 03/22/18 08:59 Last Admin: 01/24/18 08:43 Dose: 1 each Lactulose (Cephulac) 45 gm PO Q6HRT [facility] Stop: 03/21/18 12:59 Last Admin: 01/24/18 06:50 Dose: 45 gm Lactulose (Cephulac) 45 gm PO Q2HR [facility] [place] Stop: 03/25/18 11:14 Lorazepam (Ativan) 1 mg PO Q4HR PRN; Protocol PRN Reason: Anxiety Stop: 03/20/18 10:08 Last Admin: 01/24/18 06:35 Dose: 1 mg Metformin HCl (Glucophage) 850 mg PO BIDWM [facility] [place] Stop: 03/22/18 17:59 Last Admin: 01/24/18 07:04 Dose: 850 mg Metoprolol Tartrate (Lopressor) 25 mg PO BID [facility] [place] Stop: 03/23/18 08:59 Last Admin: 01/24/18 08:44 Dose: Not Given Miscellaneous (Probiotic Screen) 1 ea MC PRN PRN PRN Reason: PROTOCOL Stop: 03/21/18 14:14 Quetiapine Fumarate (Seroquel) 100 mg PO BID [facility] [place] PRN Reason: Protocol Stop: 03/21/18 08:59 Last Admin: 01/24/18 08:43 Dose: 100 mg Rifaximin (Xifaxan) 550 mg PO BID [facility] [place] Stop: 03/20/18 16:59 Last Admin: 01/24/18 08:44 Dose: 550 mg General: Alert, Cooperative HEENT: Atraumatic, PERRLA, EOMI Neck: Supple, JVD Cardiovascular: Regular rate, Normal S1, Normal S2 Lungs: Clear to auscultation Abdomen: Bowel sounds, Soft, Obese Extremities: Other (No edmea,cyanosis,clubbing.) Neurological: Normal gait, Normal speech Skin: Rash Psych/Mental Status: Mental status NL Assessment/Plan - Assessment Assessment: Altered mental status RLL pneumonia. Insulin requiring DM Cirrhosis of liver. Psych disorder. Hypotension due to meds. Cholelithiasis. Thrombocytopenia. DJD Debility Hepatic encephalopathy - Plan Plan: Med surg status. IVF Iv antibiotics Increase Lactulose Psych meds Psych follow up PT and OT Symptoms control. General nursing care Follow lab Follow consultants recommendations Continue current care Discussed with staff. Nutritional Asmnt/Malnutr-PDOC - Dietary Evaluation Malnutrition Findings (Please click <Entered> for more info): Nutritional Asmnt/Malnutrition Start: 01/19/18 18: 00 Text: Status: Complete Freq: Document 01/19/18 18:00 [facility] (Rec: 01/19/18 18:15 HEN [id number]) Nutritional Asmnt/Malnutrition Patient General Information Nutritional Screening High Risk Consult Diagnosis uncontrolled DM Pertinent Medical Hx/Surgical Hx HTN, Asthm/COPD, CABG, anxiety , HCV, rhabdomyolysis, encephalopathy, anxiety Subjective Information Consult received for BS >180 at admission. Pt transfered to ICU in the afternoon. RN reported pt now is NPO and may start TF. Pt on insulin drip noted. Current Diet Order/ Nutrition Support NPO Pertinent Medications insulin drip, piperacillin, de -0.45ns w 20 meq kcl, nacl 0.9 % Pertinent Labs 01/19 Na 134, K 3.9, Cl 111, BUN 21, Cr 1.0, Glucose 165 ( trending down), POC 150 01/18 A1c 10.3 Nutritional Hx/Data Height 1.73 m Height (Calculated Centimeters) 172.7 Current Weight (lbs) 81.647 kg Weight (Calculated Kilograms) 81.6 Weight (Calculated Grams) 91914.6 [place] Body Weight 154 Body Mass Index (BMI) 27.3 Weight Status Overweight GI Symptoms GI Symptoms None Last BM no record Difficult in: None Skin Integrity/Comment: everardo Pendleton Estimated Nutritional Goals BEE in Kcals: Adj wt of IBW Calories/Kcals/Kg 25-30 Kcals Calculated 8395-7335 Protein: Adj wt of IBW Protein g/k-1.2 Protein Calculated 73-88 Fluid: ml 9924-8194 Nutritional Problem 1. Problem Problem altered nutrition related lab values Etiology endocrine dysfunction Signs/Symptoms: Glucose 165-794, POC 150-576 A1c 10.3 Intervention/Recommendation Comments 1. Monitor NPO status. 2. If TF needed, recommend Diabetisource AC at 60ml/hr continuous. This will provide 1728kcal and 86g protein, meeting 95% of calorie needs and 100% of protein needs. 3. Monitor wt, labs and skin integrity 4. F/U as high risk in 2-3 day , 3/2-3/3 Expected Outcomes/Goals Expected Outcomes/Goals 1. pt to meet at least 75% of nutritional needs in 2-3 days. 2. Wt stability, skin to remain intact, labs to approach WNL.
[2018-01-25] MEDS: Lactulose 10 Gm/15 mL 30mL UDC PO SCH ×4 (00:17→19:30)
[2018-01-25] MEDS: Diltiazem 30 mg Tab PO SCH ×4 (00:22→22:09)
[2018-01-25] MEDS: Albuterol/Ipratropium Neb 3 ML AERS HHN SCH ×5 (01:29→19:47)
[2018-01-25] MEDS: D5-0.9%NS 1,000 ML IV SCH (02:00)
[2018-01-25 05:33] LABS: EOSINOPHILE ABSOLUTE 0.2 Th/cmm (0.1-0.4); HEMOGLOBIN 10.7 gm/dL (12-16); LYMPHOCYTE ABSOLUTE 1.5 Th/cmm (1.5-3.0); MEAN CELL VOLUME 80.4 fl (80-99); MEAN CORPUSCULAR HEMOGLOBIN 26.9 pg (26.0-30.0); MEAN CORPUSCULAR HGB CONC 33.4 pg (28.0-36.0); MEAN PLATELET VOLUME 9.8 fl; MONOCYTE ABSOLUTE 1.1 Th/cmm (0.3-1.0); NEUTROPHILE ABSOLUTE 2.3 Th/cmm (1.8-8.0); PLATELET COUNT 53 Th/cmm (150-400); RED BLOOD COUNT 3.98 Mil/cmm (4.30-5.70); RED CELL DISTRIBUTION WIDTH 16.3 % (11.5-20.0); WHITE BLOOD COUNT 5.1 Th/cmm (4.8-10.8)
[2018-01-25 05:43] LABS: % BASOPHILS 0.8 % (0.0-2.0); % EOSINOPHILS 3.6 % (0.0-5.0); % MONOCYTES 20.8 % (2.0-10.0); % NEUTROPHILS 45.8 % (40.0-80.0)
[2018-01-25 05:51] LABS: ALB/GLOB RATIO 0.8 (1.0-1.8); ALBUMIN 2.4 gm/dL (4.2-5.5); ALKALINE PHOSPHATASE 156 U/L (34-104); ANION GAP 6.6 (7.0-16.0); BILIRUBIN,TOTAL 1.5 mg/dL (0.3-1.0); BUN - UREA NITROGEN 17 mg/dL (7-25); CALCIUM SERUM 10.1 mg/dL (8.6-10.3); CARBON DIOXIDE 18.6 mEq/L (21.0-31.0); CHLORIDE 112 mEq/L (98-107); GFR AFRICAN-AMERICAN > 60.0 ml/min (>90); GFR NON AFRICAN-AMERICAN > 60.0 ml/min; GLUCOSE 220 mg/dL (70-105); POTASSIUM SERUM 3.2 mEq/L (3.5-5.1); SGOT 63 U/L (13-39); SGPT/ALT 38 U/L (7-52); SODIUM SERUM 134 mEq/L (136-145); TOTAL PROTEIN,SERUM 5.5 gm/dL (6.0-8.3)
[2018-01-25] MEDS: INSULIN ASPART, RECOMBINANT 100 UNITS/ML SUBQ SCH ×4 (06:36→22:11)
--- NOTE | 2018-01-25 07:38 | GI Progress Note ---
Subjective - Review of Systems Subjective: AWAKE SOME CONFUSION DENIES ABD PAIN Objective - Results Result Diagrams: 01/25/18 04:30 01/25/18 04:30 Recent Labs: Laboratory Last Values WBC 5.1 Th/cmm (4.8-10.8) 01/25/18 04:30 RBC 3.98 Mil/cmm (4.30-5.70) L 01/25/18 04:30 Hgb 10.7 gm/dL (12-16) L 01/25/18 04:30 Hct 32.0 % (41.0-60) L 01/25/18 04:30 MCV 80.4 fl (80-99) 01/25/18 04:30 MCH 26.9 pg (26.0-30.0) 01/25/18 04:30 MCHC Differential 33.4 pg (28.0-36.0) 01/25/18 04:30 RDW 16.3 % (11.5-20.0) 01/25/18 04:30 Plt Count 53 Th/cmm (150-400) L 01/25/18 04:30 MPV 9.8 fl 01/25/18 04:30 Neutrophils % 45.8 % (40.0-80.0) 01/25/18 04:30 Band Neutrophils % 1 % (0-10) 01/23/18 05:40 Lymphocytes % 29.0 % (20.0-50.0) 01/25/18 04:30 Monocytes % 20.8 % (2.0-10.0) H 01/25/18 04:30 Eosinophils % 3.6 % (0.0-5.0) 01/25/18 04:30 Basophils % 0.8 % (0.0-2.0) 01/25/18 04:30 Neutrophils (Manual) 49 % (40-80) 01/23/18 05:40 Lymphocytes 33 % (20-50) 01/23/18 05:40 Monocytes 13 % (2-10) H 01/23/18 05:40 Eosinophils 3 % (0-5) 01/23/18 05:40 Basophils 1 % (0-3) 01/23/18 05:40 Platelet Estimate DECREASED PLATELETS (NORMAL) 01/23/18 05:40 Specimen Source Arterial 01/20/18 09:34 Sample Site Left Radial 01/20/18 09:34 pH 7.40 (7.35-7.45) 01/20/18 09:34 pCO2 29.0 mmHg (35.0-45.0) L 01/20/18 09:34 pO2 80.0 mmHg (80.0-100.0) 01/20/18 09:34 HCO3 20.5 mEq/L (20.0-26.0) 01/20/18 09:34 Base Excess -5.6 mEq/L (-3.0-3.0) L 01/20/18 09:34 O2 Saturation 96.0 % (92.0-100.0) 01/20/18 09:34 Baltazar Test YES 01/20/18 09:34 Vent Rate NA 01/20/18 09:34 Inspired O2 21 01/20/18 09:34 Tidal Volume NA 01/20/18 09:34 PEEP NA 01/20/18 09:34 Pressure (ins/psv/peep) NA 01/20/18 09:34 Critical Value E.MULLEN 01/20/18 09:34 Sodium 134 mEq/L (136-145) L 01/25/18 04:30 Potassium 3.2 mEq/L (3.5-5.1) L 01/25/18 04:30 Chloride 112 mEq/L (98-107) H 01/25/18 04:30 Carbon Dioxide 18.6 mEq/L (21.0-31.0) L 01/25/18 04:30 Anion Gap 6.6 (7.0-16.0) L 01/25/18 04:30 BUN 17 mg/dL (7-25) 01/25/18 04:30 Creatinine 1.0 mg/dL (0.7-1.3) 01/25/18 04:30 Est GFR ( Amer) > 60.0 ml/min (>90) 01/25/18 04:30 Est GFR (Non-Af Amer) > 60.0 ml/min 01/25/18 04:30 BUN/Creatinine Ratio 17.0 01/25/18 04:30 Glucose 220 mg/dL (70-105) H 01/25/18 04:30 POC Glucose 189 MG/DL (70 - 105) H 01/24/18 21:02 Hemoglobin A1c % 10.3 % (4.0-6.0) H 01/18/18 20:51 Calcium 10.1 mg/dL (8.6-10.3) 01/25/18 04:30 Phosphorus 3.2 mg/dL (2.5-5.0) 01/19/18 12:10 Magnesium 1.6 mg/dL (1.9-2.7) L 01/23/18 05:40 Iron 303 ug/dL (38-169) H 01/20/18 09:45 TIBC 379 ug/dL (250-450) 01/20/18 09:45 Iron Saturation 80 % (15-55) H 01/20/18 09:45 Unsaturated IBC 76 ug/dL (111-343) L 01/20/18 09:45 Ferritin 45 ng/mL (30-400) 01/20/18 09:45 Total Bilirubin 1.5 mg/dL (0.3-1.0) H 01/25/18 04:30 Direct Bilirubin 0.95 mg/dL (0.0-0.2) H 01/20/18 05:30 GGTP 93 IU/L (0-65) H 01/20/18 09:45 AST 63 U/L (13-39) H 01/25/18 04:30 ALT 38 U/L (7-52) 01/25/18 04:30 Alkaline Phosphatase 156 U/L (34-104) H 01/25/18 04:30 Ammonia 103 umol/L (16-53) H 01/25/18 04:30 Creatine Kinase 616 U/L (30-223) H 01/19/18 16:00 CK-MB (CK-2) 10.3 ng/mL (0.6-6.3) H 01/19/18 16:00 Troponin I 0.19 ng/mL (0.01-0.05) H* 01/19/18 16:00 B-Natriuretic Peptide 35.1 pg/mL (5.0-100.0) 01/18/18 23:57 Total Protein 5.5 gm/dL (6.0-8.3) L 01/25/18 04:30 Albumin 2.4 gm/dL (4.2-5.5) L 01/25/18 04:30 Globulin 3.1 gm/dL 01/25/18 04:30 Albumin/Globulin Ratio 0.8 (1.0-1.8) L 01/25/18 04:30 Ceruloplasmin 30.3 mg/dL (16.0-31.0) 01/20/18 09:45 Amylase 148 U/L (29-103) H 01/18/18 20:51 Lipase 179 U/L (11-82) H 01/18/18 20:51 TSH 3.58 uIU/ml (0.34-5.60) 01/18/18 20:21 PTH Interpretation (()) 01/19/18 12:10 PTH Intact 9 pg/mL (15-65) L 01/19/18 12:10 Calcium (PTH Intact) 11.0 mg/dL (8.7-10.2) H 01/19/18 12:10 Urine Source RANDOM 01/18/18 20:10 Urine Color YELLOW 01/18/18 20:10 Urine Clarity CLEAR (CLEAR) 01/18/18 20:10 Urine pH 7.0 (4.6 - 8.0) 01/18/18 20:10 Ur Specific [place] 1.010 (1.005-1.030) 01/18/18 20:10 Urine Protein NEGATIVE mg/dL (NEGATIVE) 01/18/18 20:10 Urine Glucose (UA) >=1000 mg/dL (NEGATIVE) H 01/18/18 20:10 Urine Ketones NEGATIVE mg/dL (NEGATIVE) 01/18/18 20:10 Urine Blood SMALL (NEGATIVE) H 01/18/18 20:10 Urine Nitrate NEGATIVE (NEGATIVE) 01/18/18 20:10 Urine Bilirubin NEGATIVE (NEGATIVE) 01/18/18 20:10 Urine Urobilinogen 0.2 E.U./dL (0.2 - 1.0) 01/18/18 20:10 Ur Leukocyte Esterase NEGATIVE (NEGATIVE) 01/18/18 20:10 Urine RBC 2-5 /hpf (0-5) H 01/18/18 20:10 Urine WBC NONE SEEN /hpf (0-5) 01/18/18 20:10 Ur Epithelial Cells NONE SEEN /lpf (FEW) 01/18/18 20:10 Urine Bacteria NONE SEEN /hpf (NONE SEEN) 01/18/18 20:10 Urine Opiates Screen NEGATIVE (NEGATIVE) 01/18/18 20:10 Urine Methadone Screen NEGATIVE (NEGATIVE) 01/18/18 20:10 Acetaminophen < 10.0 ug/mL (10.0-30.0) L 01/20/18 05:30 Ur Barbiturates Screen NEGATIVE (NEGATIVE) 01/18/18 20:10 Ur Tricyclics Screen NEGATIVE (NEGATIVE) 01/18/18 20:10 Ur Phencyclidine Scrn NEGATIVE (NEGATIVE) 01/18/18 20:10 Amphetamines Screen NEGATIVE (NEGATIVE) 01/18/18 20:10 U Methamphetamines Scrn NEGATIVE (NEGATIVE) 01/18/18 20:10 U Benzodiazepines Scrn NEGATIVE (NEGATIVE) 01/18/18 20:10 U Cocaine Metab Screen NEGATIVE (NEGATIVE) 01/18/18 20:10 U Cannabinoids Screen NEGATIVE (NEGATIVE) 01/18/18 20:10 RPR NONREACTIVE (NONREACTIVE) 01/18/18 20:21 Hepatitis A IgM Ab Negative (Negative) 01/20/18 09:45 Hep Bs Antigen Negative (Negative) 01/20/18 09:45 Hep B Core IgM Ab Negative (Negative) 01/20/18 09:45 Hepatitis C Antibody >11.0 s/co ratio (0.0-0.9) H 01/20/18 09:45 - Physical Exam Vitals and I&O: Vital Signs Temp 97.5 F 01/25/18 04:00 Pulse 106 01/25/18 06:00 Resp 16 01/25/18 06:00 BP 96/74 01/25/18 06:00 Pulse Ox 99 01/25/18 06:00 Intake & Output 01/24/18 01/25/18 01/25/18 18:59 06:59 18:59 Intake Total 2458.75 1146.667 Output Total 900 2000 Balance 1558.75 -853.333 Weight (lbs) 94.914 kg 95.254 kg Intake: Intake, IV Amount 1208.75 996.667 D5-0.9%Ns 1,000 ml @ 100 1000 896.667 mls/hr IV .Q10H [facility] Rx#: [id number] Norepinephrine 4 mg In 158.75 Dextrose 5% 250 ml @ 5 MCG/MIN 19.05 mls/hr IV TITR PRN Rx#:[id number] Piperacillin Sodium/ 50 100 Tazobact 2.25 gm In Sodium Chloride 0.9% 50 ml @ 100 mls/hr IV Q8HR [facility] Rx#:[id number] Oral 1250 150 Output: Urine 900 2000 Other: # Bowel Movements 2 5 Stool Characteristics Soft Soft Liquid Liquid Active Medications: Current Medications Albuterol/Ipratropium (Duoneb Neb) 3 ml HHN Q6HRT [facility] Stop: 03/20/18 12:59 Last Admin: 01/25/18 01:29 Dose: 3 ml Aspirin (Aspirin Chewable) 81 mg PO DAILY [facility] Stop: 03/23/18 08:59 Last Admin: 01/24/18 08:43 Dose: 81 mg Diltiazem HCl (Cardizem) 60 mg PO Q6HR [facility] Stop: 03/23/18 00:00 Last Admin: 01/25/18 05:35 Dose: Not Given Piperacillin Sod/Tazobactam (Sod 2.25 gm/ Sodium Chloride) 50 mls @ 100 mls/hr IV Q8HR [facility] Stop: 03/20/18 12:59 Last Infusion: 01/25/18 06:39 Dose: Infused Sodium Chloride (Nacl 0.9%) 500 mls @ 0 mls/hr IV .Q0M [facility] PRN Reason: TKO Stop: 03/22/18 20:14 Last Infusion: 01/22/18 18:00 Dose: 0 mls/hr Norepinephrine Bitartrate 4 mg (/ Dextrose) 254 mls @ 19.05 mls/hr IV TITR PRN ; Protocol; 5 MCG/MIN PRN Reason: BP MAINTENANCE (PER PROTOCOL) Stop: 03/24/18 20:19 Last Titration: 01/24/18 07:38 Dose: Infused Dextrose/Sodium Chloride (D5-0.9%Ns) 1,000 mls @ 100 mls/hr IV .Q10H [facility] Stop: 03/24/18 20:29 Last Admin: 01/25/18 02:00 Dose: 100 mls/hr Insulin Aspart (Novolog) 0 units SUBQ ACHS [facility] PRN Reason: Protocol Stop: 03/21/18 11:29 Last Admin: 01/25/18 06:36 Dose: 3 units Insulin Detemir (Levemir Insulin) 20 units SUBQ DAILY [facility] PRN Reason: Protocol Stop: 03/22/18 09:23 Last Admin: 01/24/18 08:09 Dose: 20 units Lactobacillus Rhamnosus (Culturelle 15b) 1 each PO DAILY CHRISTIANNE Stop: 03/22/18 08:59 Last Admin: 01/24/18 08:43 Dose: 1 each Lactulose (Cephulac) 45 gm PO Q6HRT [facility] Stop: 03/21/18 12:59 Last Admin: 01/25/18 06:38 Dose: 45 gm Lactulose (Cephulac) 45 gm PO Q2HR CHRISTIANNE Stop: 03/25/18 11:14 Lorazepam (Ativan) 1 mg PO Q4HR PRN; Protocol PRN Reason: Anxiety Stop: 03/20/18 10:08 Last Admin: 01/24/18 06:35 Dose: 1 mg Metformin HCl (Glucophage) 850 mg PO BIDWM [facility] Stop: 03/22/18 17:59 Last Admin: 01/24/18 18:20 Dose: 850 mg Metoprolol Tartrate (Lopressor) 25 mg PO BID [facility] Stop: 03/23/18 08:59 Last Admin: 01/24/18 16:59 Dose: Not Given Miscellaneous (Probiotic Screen) 1 ea MC PRN PRN PRN Reason: PROTOCOL Stop: 03/21/18 14:14 Quetiapine Fumarate (Seroquel) 100 mg PO BID [facility] PRN Reason: Protocol Stop: 03/21/18 08:59 Last Admin: 01/24/18 16:59 Dose: 100 mg Rifaximin (Xifaxan) 550 mg PO BID [facility] Stop: 03/20/18 16:59 Last Admin: 01/24/18 16:58 Dose: 550 mg General: Alert, Cooperative HEENT: Atraumatic, PERRLA, EOMI Neck: Supple, JVD Cardiovascular: Regular rate, Normal S1, Normal S2 Lungs: Clear to auscultation Abdomen: Bowel sounds, Soft, Obese Extremities: Other (No edmea,cyanosis,clubbing.) Neurological: Normal gait, Normal speech Skin: Rash Psych/Mental Status: Mental status NL Assessment/Plan - Assessment Assessment: 57 YO MALE WITH ETOH AND HCV CIRRHOSIS HAS HEPATIC ENCEPHALOPATHY IRMA SHOWED GALLSTONES BUT HIDA SCAN WAS NEGATIVE - PT IS ASYMPTOMATIC 1.CONT XIFAXAN AND LACTULOSE 2.CONSIDER SUKHDEEP IN THE FUTURE IF SYMPTOMATIC 3.WILL NEED OUTPATIENT HEPATOLOGY MANAGEMENT
[2018-01-25] MEDS: Aspirin 81mg Chewable Tab PO SCH (09:23)
[2018-01-25] MEDS: Lactobacillus Rhamnosus GG 15 Billion CFU CAP.SPRINK PO SCH (09:23)
[2018-01-25] MEDS: Insulin Detemir 100 units/mL 10mL Vial SUBQ SCH (09:30)
[2018-01-25] MEDS ORDERED: Potassium Chloride 20 mEq ER Tab PO ONE (10:54)
--- NOTE | 2018-01-25 23:11 | Progress Notes ---
DATE: 01/25/2018 SUBJECTIVE: The patient is seen and examined. The patient is lying in the bed. The patient is alert and awake, but confused at times. Nursing staff reports, the patient is doing better. The patient denies any chest pain, shortness of breath, palpitation or dizziness. PHYSICAL EXAMINATION: VITAL SIGNS: Temperature 98, pulse is 74, respiratory rate 18, blood pressure 108/78. HEENT: No facial asymmetry. Tongue was pink and coated. NECK: Supple, no JVD. HEART: Irregular. CHEST: Lung equal in expansion. No wheezing or crackles. ABDOMEN: Soft. No guarding, no rigidity. Bowel sounds are present. EXTREMITIES: No edema. CLINICAL IMPRESSION: 1. Hepatic encephalopathy. 2. Diabetes mellitus. 3. Hypotension, improved. 4. Hypercalcemia, resolved. 5. Psychotic disorder. 6. Cirrhosis of liver. 7. Degenerative joint disease. 8. Right lower lobe pneumonia. 9. Debility. PLAN: 1. Discontinue Dobbs catheter. 2. Transfer to Med/Surg floor. 3. PT, OT. 4. Lactulose. 5. General nursing care. 6. Monitor vital signs. 7. Follow lab. 8. Follow consult recommendation. 9. Care plan reviewed and discussed with staff. JOB# [id number]
[2018-01-26] MEDS: Albuterol/Ipratropium Neb 3 ML AERS HHN SCH ×4 (00:21→19:12)
[2018-01-26] MEDS: Lactulose 10 Gm/15 mL 30mL UDC PO SCH ×4 (01:03→18:21)
[2018-01-26] MEDS: Diltiazem 30 mg Tab PO SCH ×3 (05:21→21:42)
[2018-01-26 07:33] LABS: BASOPHILE ABSOLUTE 0.1 Th/cumm (0-0.2); EOSINOPHILE ABSOLUTE 0.2 Th/cmm (0.1-0.4); HEMATOCRIT 33.2 % (41.0-60); HEMOGLOBIN 11.1 gm/dL (12-16); LYMPHOCYTE ABSOLUTE 1.9 Th/cmm (1.5-3.0); MEAN CELL VOLUME 81.5 fl (80-99); MEAN CORPUSCULAR HEMOGLOBIN 27.3 pg (26.0-30.0); MEAN CORPUSCULAR HGB CONC 33.5 pg (28.0-36.0); MEAN PLATELET VOLUME 9.4 fl; MONOCYTE ABSOLUTE 1.4 Th/cmm (0.3-1.0); NEUTROPHILE ABSOLUTE 4.4 Th/cmm (1.8-8.0); PLATELET COUNT 55 Th/cmm (150-400); RED BLOOD COUNT 4.07 Mil/cmm (4.30-5.70); RED CELL DISTRIBUTION WIDTH 17.2 % (11.5-20.0)
[2018-01-26 07:35] LABS: % BASOPHILS 0.8 % (0.0-2.0); % EOSINOPHILS 2.9 % (0.0-5.0); % LYMPHOCYTES 23.9 % (20.0-50.0); % MONOCYTES 17.9 % (2.0-10.0); % NEUTROPHILS 54.5 % (40.0-80.0)
[2018-01-26 07:49] LABS: ALB/GLOB RATIO 0.8 (1.0-1.8); ALBUMIN 2.6 gm/dL (4.2-5.5); ALKALINE PHOSPHATASE 181 U/L (34-104); ANION GAP 9.5 (7.0-16.0); BILIRUBIN,TOTAL 1.3 mg/dL (0.3-1.0); BUN - UREA NITROGEN 16 mg/dL (7-25); CALCIUM SERUM 10.4 mg/dL (8.6-10.3); CARBON DIOXIDE 18.4 mEq/L (21.0-31.0); CHLORIDE 112 mEq/L (98-107); GFR AFRICAN-AMERICAN > 60.0 ml/min (>90); GFR NON AFRICAN-AMERICAN > 60.0 ml/min; GLUCOSE 233 mg/dL (70-105); POTASSIUM SERUM 3.9 mEq/L (3.5-5.1); SGOT 71 U/L (13-39); SGPT/ALT 42 U/L (7-52); SODIUM SERUM 136 mEq/L (136-145); TOTAL PROTEIN,SERUM 5.9 gm/dL (6.0-8.3)
--- NOTE | 2018-01-26 08:00 | GI Progress Note ---
Subjective - Review of Systems Subjective: MORE AWAKE DENIES ABD PAIN Objective - Results Result Diagrams: 01/26/18 06:59 01/26/18 06:59 Recent Labs: Laboratory Last Values WBC 8.0 Th/cmm (4.8-10.8) 01/26/18 06:59 RBC 4.07 Mil/cmm (4.30-5.70) L 03 06:59 Hgb 11.1 gm/dL (12-16) L 01/26/18 06:59 Hct 33.2 % (41.0-60) L 01/26/18 06:59 MCV 81.5 fl (80-99) 01/26/18 06:59 MCH 27.3 pg (26.0-30.0) 01/26/18 06:59 MCHC Differential 33.5 pg (28.0-36.0) 01/26/18 06:59 RDW 17.2 % (11.5-20.0) 01/26/18 06:59 Plt Count 55 Th/cmm (150-400) L 01/26/18 06:59 MPV 9.4 fl 01/26/18 06:59 Neutrophils % 54.5 % (40.0-80.0) 01/26/18 06:59 Band Neutrophils % 1 % (0-10) 01/23/18 05:40 Lymphocytes % 23.9 % (20.0-50.0) 01/26/18 06:59 Monocytes % 17.9 % (2.0-10.0) H 01/26/18 06:59 Eosinophils % 2.9 % (0.0-5.0) 01/26/18 06:59 Basophils % 0.8 % (0.0-2.0) 01/26/18 06:59 Neutrophils (Manual) 49 % (40-80) 01/23/18 05:40 Lymphocytes 33 % (20-50) 01/23/18 05:40 Monocytes 13 % (2-10) H 01/23/18 05:40 Eosinophils 3 % (0-5) 01/23/18 05:40 Basophils 1 % (0-3) 01/23/18 05:40 Platelet Estimate DECREASED PLATELETS (NORMAL) 01/23/18 05:40 Specimen Source Arterial 01/20/18 09:34 Sample Site Left Radial 01/20/18 09:34 pH 7.40 (7.35-7.45) 01/20/18 09:34 pCO2 29.0 mmHg (35.0-45.0) L 01/20/18 09:34 pO2 80.0 mmHg (80.0-100.0) 01/20/18 09:34 HCO3 20.5 mEq/L (20.0-26.0) 01/20/18 09:34 Base Excess -5.6 mEq/L (-3.0-3.0) L 01/20/18 09:34 O2 Saturation 96.0 % (92.0-100.0) 01/20/18 09:34 Baltazar Test YES 01/20/18 09:34 Vent Rate NA 01/20/18 09:34 Inspired O2 21 01/20/18 09:34 Tidal Volume NA 01/20/18 09:34 PEEP NA 01/20/18 09:34 Pressure (ins/psv/peep) NA 01/20/18 09:34 Critical Value E.MULLEN 01/20/18 09:34 Sodium 136 mEq/L (136-145) 01/26/18 06:59 Potassium 3.9 mEq/L (3.5-5.1) 01/26/18 06:59 Chloride 112 mEq/L (98-107) H 01/26/18 06:59 Carbon Dioxide 18.4 mEq/L (21.0-31.0) L 01/26/18 06:59 Anion Gap 9.5 (7.0-16.0) 01/26/18 06:59 BUN 16 mg/dL (7-25) 01/26/18 06:59 Creatinine 1.0 mg/dL (0.7-1.3) 01/26/18 06:59 Est GFR ( Amer) > 60.0 ml/min (>90) 01/26/18 06:59 Est GFR (Non-Af Amer) > 60.0 ml/min 01/26/18 06:59 BUN/Creatinine Ratio 16.0 01/26/18 06:59 Glucose 233 mg/dL (70-105) H 01/26/18 06:59 POC Glucose 214 MG/DL (70 - 105) H 01/26/18 06:43 Hemoglobin A1c % 10.3 % (4.0-6.0) H 01/18/18 20:51 Calcium 10.4 mg/dL (8.6-10.3) H 01/26/18 06:59 Phosphorus 3.2 mg/dL (2.5-5.0) 01/19/18 12:10 Magnesium 1.6 mg/dL (1.9-2.7) L 01/23/18 05:40 Iron 303 ug/dL (38-169) H 01/20/18 09:45 TIBC 379 ug/dL (250-450) 01/20/18 09:45 Iron Saturation 80 % (15-55) H 01/20/18 09:45 Unsaturated IBC 76 ug/dL (111-343) L 01/20/18 09:45 Ferritin 45 ng/mL (30-400) 01/20/18 09:45 Total Bilirubin 1.3 mg/dL (0.3-1.0) H 01/26/18 06:59 Direct Bilirubin 0.95 mg/dL (0.0-0.2) H 01/20/18 05:30 GGTP 93 IU/L (0-65) H 01/20/18 09:45 AST 71 U/L (13-39) H 01/26/18 06:59 ALT 42 U/L (7-52) 01/26/18 06:59 Alkaline Phosphatase 181 U/L (34-104) H 01/26/18 06:59 Ammonia 148 umol/L (16-53) H 01/26/18 06:59 Creatine Kinase 616 U/L (30-223) H 01/19/18 16:00 CK-MB (CK-2) 10.3 ng/mL (0.6-6.3) H 01/19/18 16:00 Troponin I 0.19 ng/mL (0.01-0.05) H* 01/19/18 16:00 B-Natriuretic Peptide 35.1 pg/mL (5.0-100.0) 01/18/18 23:57 Total Protein 5.9 gm/dL (6.0-8.3) L 01/26/18 06:59 Albumin 2.6 gm/dL (4.2-5.5) L 01/26/18 06:59 Globulin 3.3 gm/dL 01/26/18 06:59 Albumin/Globulin Ratio 0.8 (1.0-1.8) L 01/26/18 06:59 Ceruloplasmin 30.3 mg/dL (16.0-31.0) 01/20/18 09:45 Amylase 148 U/L (29-103) H 01/18/18 20:51 Lipase 179 U/L (11-82) H 01/18/18 20:51 Tumor Marker AFP 2.8 ng/mL (0.0-8.3) 01/24/18 04:10 TSH 3.58 uIU/ml (0.34-5.60) 01/18/18 20:21 PTH Interpretation (()) 01/19/18 12:10 PTH Intact 9 pg/mL (15-65) L 01/19/18 12:10 Calcium (PTH Intact) 11.0 mg/dL (8.7-10.2) H 01/19/18 12:10 Urine Source RANDOM 01/18/18 20:10 Urine Color YELLOW 01/18/18 20:10 Urine Clarity CLEAR (CLEAR) 01/18/18 20:10 Urine pH 7.0 (4.6 - 8.0) 01/18/18 20:10 Ur Specific Elizabeth 1.010 (1.005-1.030) 01/18/18 20:10 Urine Protein NEGATIVE mg/dL (NEGATIVE) 01/18/18 20:10 Urine Glucose (UA) >=1000 mg/dL (NEGATIVE) H 01/18/18 20:10 Urine Ketones NEGATIVE mg/dL (NEGATIVE) 01/18/18 20:10 Urine Blood SMALL (NEGATIVE) H 01/18/18 20:10 Urine Nitrate NEGATIVE (NEGATIVE) 01/18/18 20:10 Urine Bilirubin NEGATIVE (NEGATIVE) 01/18/18 20:10 Urine Urobilinogen 0.2 E.U./dL (0.2 - 1.0) 01/18/18 20:10 Ur Leukocyte Esterase NEGATIVE (NEGATIVE) 01/18/18 20:10 Urine RBC 2-5 /hpf (0-5) H 01/18/18 20:10 Urine WBC NONE SEEN /hpf (0-5) 01/18/18 20:10 Ur Epithelial Cells NONE SEEN /lpf (FEW) 01/18/18 20:10 Urine Bacteria NONE SEEN /hpf (NONE SEEN) 01/18/18 20:10 Urine Opiates Screen NEGATIVE (NEGATIVE) 01/18/18 20:10 Urine Methadone Screen NEGATIVE (NEGATIVE) 01/18/18 20:10 Acetaminophen < 10.0 ug/mL (10.0-30.0) L 01/20/18 05:30 Ur Barbiturates Screen NEGATIVE (NEGATIVE) 01/18/18 20:10 Ur Tricyclics Screen NEGATIVE (NEGATIVE) 01/18/18 20:10 Ur Phencyclidine Scrn NEGATIVE (NEGATIVE) 01/18/18 20:10 Amphetamines Screen NEGATIVE (NEGATIVE) 01/18/18 20:10 U Methamphetamines Scrn NEGATIVE (NEGATIVE) 01/18/18 20:10 U Benzodiazepines Scrn NEGATIVE (NEGATIVE) 01/18/18 20:10 U Cocaine Metab Screen NEGATIVE (NEGATIVE) 01/18/18 20:10 U Cannabinoids Screen NEGATIVE (NEGATIVE) 01/18/18 20:10 RPR NONREACTIVE (NONREACTIVE) 01/18/18 20:21 Hepatitis A IgM Ab Negative (Negative) 01/20/18 09:45 Hep Bs Antigen Negative (Negative) 01/20/18 09:45 Hep B Core IgM Ab Negative (Negative) 01/20/18 09:45 Hepatitis C Antibody >11.0 s/co ratio (0.0-0.9) H 01/20/18 09:45 - Physical Exam Vitals and I&O: Vital Signs Temp 98.9 F 01/26/18 04:00 Pulse 112 01/26/18 06:50 Resp 20 01/26/18 06:50 BP 133/90 01/26/18 04:00 Pulse Ox 98 01/26/18 06:50 Intake & Output 01/25/18 01/26/18 01/26/18 18:59 06:59 18:59 Intake Total 1900 750 Output Total 1500 300 Balance 400 450 Weight (lbs) 95.51 kg 96.162 kg Intake: Intake, IV Amount 50 50 Piperacillin Sodium/ 50 50 Tazobact 2.25 gm In Sodium Chloride 0.9% 50 ml @ 100 mls/hr IV Q8HR [facility] Rx#:[id number] Oral 1850 700 Output: Urine 1350 300 Other 150 Other: # Voids 1 1 # Bowel Movements 1 0 Stool Characteristics Soft Liquid Brown Green Active Medications: Current Medications Albuterol/Ipratropium (Duoneb Neb) 3 ml HHN Q6HRT [facility] Stop: 03/20/18 12:59 Last Admin: 01/26/18 06:50 Dose: 3 ml Aspirin (Aspirin Chewable) 81 mg PO DAILY [facility] Stop: 03/23/18 08:59 Last Admin: 01/25/18 09:23 Dose: 81 mg Diltiazem HCl (Cardizem) 30 mg PO Q8HR [facility] Stop: 03/26/18 12:59 Last Admin: 01/26/18 05:21 Dose: 30 mg Piperacillin Sod/Tazobactam (Sod 2.25 gm/ Sodium Chloride) 50 mls @ 100 mls/hr IV Q8HR [facility] Stop: 03/20/18 12:59 Last Admin: 01/26/18 05:21 Dose: 100 mls/hr Sodium Chloride (Nacl 0.9%) 500 mls @ 0 mls/hr IV .Q0M [facility] PRN Reason: TKO Stop: 03/22/18 20:14 Last Infusion: 01/22/18 18:00 Dose: 0 mls/hr Norepinephrine Bitartrate 4 mg (/ Dextrose) 254 mls @ 19.05 mls/hr IV TITR PRN ; Protocol; 5 MCG/MIN PRN Reason: BP MAINTENANCE (PER PROTOCOL) Stop: 03/24/18 20:19 Last Titration: 01/24/18 07:38 Dose: Infused Insulin Aspart (Novolog) 0 units SUBQ ACHS [facility] PRN Reason: Protocol Stop: 03/21/18 11:29 Last Admin: 01/25/18 22:11 Dose: 5 units Insulin Detemir (Levemir Insulin) 20 units SUBQ DAILY [facility] PRN Reason: Protocol Stop: 03/22/18 09:23 Last Admin: 01/25/18 09:30 Dose: 20 units Lactobacillus Rhamnosus (Culturelle 15b) 1 each PO DAILY [facility] Stop: 03/22/18 08:59 Last Admin: 01/25/18 09:23 Dose: 1 each Lactulose (Cephulac) 45 gm PO Q6HRT [facility] Stop: 03/21/18 12:59 Last Admin: 01/26/18 01:03 Dose: Not Given Lactulose (Cephulac) 45 gm PO Q2HR [facility] Stop: 03/25/18 11:14 Lorazepam (Ativan) 1 mg PO Q4HR PRN; Protocol PRN Reason: Anxiety Stop: 03/20/18 10:08 Last Admin: 01/24/18 06:35 Dose: 1 mg Metformin HCl (Glucophage) 850 mg PO BIDWM [facility] Stop: 03/22/18 17:59 Last Admin: 01/25/18 17:02 Dose: 850 mg Metoprolol Tartrate (Lopressor) 25 mg PO DAILY [facility] Stop: 03/27/18 08:59 Miscellaneous (Probiotic Screen) 1 ea [facility] PRN PRN PRN Reason: PROTOCOL Stop: 03/21/18 14:14 Quetiapine Fumarate (Seroquel) 100 mg PO BID [facility] PRN Reason: Protocol Stop: 03/21/18 08:59 Last Admin: 01/25/18 16:25 Dose: 100 mg Rifaximin (Xifaxan) 550 mg PO BID [facility] Stop: 03/20/18 16:59 Last Admin: 01/25/18 16:25 Dose: 550 mg General: Alert, Cooperative HEENT: Atraumatic, PERRLA, EOMI Neck: Supple, JVD Cardiovascular: Regular rate, Normal S1, Normal S2 Lungs: Clear to auscultation Abdomen: Bowel sounds, Soft, Obese Extremities: Other (No edmea,cyanosis,clubbing.) Neurological: Normal gait, Normal speech Skin: Rash Psych/Mental Status: Mental status NL Assessment/Plan - Assessment Assessment: 57 YO MALE WITH ETOH AND HCV CIRRHOSIS HAS HEPATIC ENCEPHALOPATHY THAT IS IMPROVING IRMA SHOWED GALLSTONES BUT HIDA SCAN WAS NEGATIVE - PT IS ASYMPTOMATIC AFP NORMAL 1.CONT XIFAXAN AND LACTULOSE 2.CONSIDER SUKHDEEP IN THE FUTURE IF SYMPTOMATIC 3.WILL NEED OUTPATIENT HEPATOLOGY MANAGEMENT
[2018-01-26] MEDS: Lactobacillus Rhamnosus GG 15 Billion CFU CAP.SPRINK PO SCH (08:40)
[2018-01-26] MEDS: Aspirin 81mg Chewable Tab PO SCH (08:42)
[2018-01-26] MEDS: INSULIN ASPART, RECOMBINANT 100 UNITS/ML SUBQ SCH ×4 (09:23→21:40)
[2018-01-26] MEDS: Insulin Detemir 100 units/mL 10mL Vial SUBQ SCH (09:25)
--- NOTE | 2018-01-27 01:42 | Progress Notes ---
DATE: 01/26/2018 SUBJECTIVE: The patient seen and examined. The patient is sitting in the chair. The patient required a walker in order to stand up, took 2 steps and does not want to walk at this time. The patient has remained hemodynamically stable. PHYSICAL EXAMINATION: VITAL SIGNS: Temperature 98.9, pulse 85, respiratory rate 18, blood pressure 130/90. HEENT: No facial asymmetry. NECK: Supple, no JVD. HEART: Both heart sounds are regular. CHEST AND LUNG: Equal in expansion. No wheezing, no crackles. ABDOMEN: Soft. No guarding, no rigidity. Bowel sounds are present. EXTREMITIES: Trace edema noted. AVAILABLE DIAGNOSTIC DATA: White count of 8, hemoglobin 11.1, platelet count of 55. BUN and creatinine is 16 and 1.0, calcium of 10.4. Blood sugar chart is reviewed. AST, ALT and alkaline phosphatase is 71, 42 and 141 respectively. Ammonia level is 148. CLINICAL IMPRESSION: 1. Generalized debility. 2. Hepatic encephalopathy. 3. Diabetes mellitus with elevated blood sugar. 4. Right lower lobe pneumonia. 5. Thrombocytopenia. 6. Hypotension, resolved. 7. Psychotic disorder. 8. High risk for fall. 9. Degenerative joint disease. 10. Cirrhosis of liver. PLAN: Med/surg status for now. Continue to provide physical therapy and occupational therapy. Increase the lactulose until the patient started having ammonia level of less than 100. The patient is very high risk for fall and confusion to go to Geropsych Unit at this time until the patient is more stable. Continue to provide antibiotic along with general nursing care as well as following the lab and following on consult recommendations. Care plan was reviewed and discussed with staff. JOB# [id number]
[2018-01-27] MEDS: Albuterol/Ipratropium Neb 3 ML AERS HHN SCH ×4 (01:49→19:36)
[2018-01-27] MEDS: Lactulose 10 Gm/15 mL 30mL UDC PO SCH ×9 (01:57→22:12)
[2018-01-27 05:46] LABS: HEMATOCRIT 31.3 % (41.0-60); HEMOGLOBIN 10.4 gm/dL (12-16); MANUAL DIFF REQUIRED? YES; MEAN CELL VOLUME 81.4 fl (80-99); MEAN CORPUSCULAR HEMOGLOBIN 27.1 pg (26.0-30.0); MEAN CORPUSCULAR HGB CONC 33.3 pg (28.0-36.0); MEAN PLATELET VOLUME 8.7 fl; PLATELET COUNT 52 Th/cmm (150-400); RED BLOOD COUNT 3.84 Mil/cmm (4.30-5.70); RED CELL DISTRIBUTION WIDTH 17.1 % (11.5-20.0); WHITE BLOOD COUNT 8.3 Th/cmm (4.8-10.8)
[2018-01-27] MEDS: Diltiazem 30 mg Tab PO SCH (05:49)
[2018-01-27 06:04] LABS: ALB/GLOB RATIO 0.8 (1.0-1.8); ALBUMIN 2.5 gm/dL (4.2-5.5); ALKALINE PHOSPHATASE 156 U/L (34-104); ANION GAP 9.3 (7.0-16.0); BILIRUBIN,TOTAL 1.6 mg/dL (0.3-1.0); BUN - UREA NITROGEN 19 mg/dL (7-25); CALCIUM SERUM 10.7 mg/dL (8.6-10.3); CARBON DIOXIDE 18.5 mEq/L (21.0-31.0); CHLORIDE 112 mEq/L (98-107); CREATININE - SERUM 1.2 mg/dL (0.7-1.3); GFR AFRICAN-AMERICAN > 60.0 ml/min (>90); GFR NON AFRICAN-AMERICAN > 60.0 ml/min; POTASSIUM SERUM 3.8 mEq/L (3.5-5.1); SGOT 69 U/L (13-39); SGPT/ALT 41 U/L (7-52); SODIUM SERUM 136 mEq/L (136-145); TOTAL PROTEIN,SERUM 5.7 gm/dL (6.0-8.3)
[2018-01-27 06:16] LABS: GLUCOSE 129 mg/dL (70-105)
[2018-01-27 07:10] LABS: TOTAL CELLS COUNTED 100
[2018-01-27 07:15] LABS: EOSINOPHIL 3 % (0-5); LYMPHOCYTE 23 % (20-50); MONOCYTE 12 % (2-10); NEUTROPHILS 62 % (40-80); PLATELET ESTIMATE DECREASED PLATELETS (NORMAL)
[2018-01-27] MEDS: INSULIN ASPART, RECOMBINANT 100 UNITS/ML SUBQ SCH ×4 (08:57→22:09)
[2018-01-27] MEDS: Lactobacillus Rhamnosus GG 15 Billion CFU CAP.SPRINK PO SCH (09:53)
[2018-01-27] MEDS: Aspirin 81mg Chewable Tab PO SCH (09:53)
[2018-01-27] MEDS ORDERED: Lactulose 10 Gm/15 mL 30mL UDC PO SCH (10:30)
[2018-01-27] MEDS: Insulin Detemir 100 units/mL 10mL Vial SUBQ SCH (10:55)
--- NOTE | 2018-01-27 14:43 | GI Progress Note ---
Subjective - Review of Systems Subjective: MORE AWAKE DENIES ABD PAIN Objective - Results Result Diagrams: 01/27/18 05:25 01/27/18 05:25 Recent Labs: Laboratory Last Values WBC 8.3 Th/cmm (4.8-10.8) 01/27/18 05:25 RBC 3.84 Mil/cmm (4.30-5.70) L 01/27/18 05:25 Hgb 10.4 gm/dL (12-16) L 01/27/18 05:25 Hct 31.3 % (41.0-60) L 01/27/18 05:25 MCV 81.4 fl (80-99) 01/27/18 05:25 MCH 27.1 pg (26.0-30.0) 01/27/18 05:25 MCHC Differential 33.3 pg (28.0-36.0) 01/27/18 05:25 RDW 17.1 % (11.5-20.0) 01/27/18 05:25 Plt Count 52 Th/cmm (150-400) L 01/27/18 05:25 MPV 8.7 fl 01/27/18 05:25 Neutrophils % 54.5 % (40.0-80.0) 01/26/18 06:59 Band Neutrophils % 1 % (0-10) 01/23/18 05:40 Lymphocytes % 23.9 % (20.0-50.0) 01/26/18 06:59 Monocytes % 17.9 % (2.0-10.0) H 01/26/18 06:59 Eosinophils % 2.9 % (0.0-5.0) 01/26/18 06:59 Basophils % 0.8 % (0.0-2.0) 01/26/18 06:59 Neutrophils (Manual) 62 % (40-80) 01/27/18 05:25 Lymphocytes 23 % (20-50) 01/27/18 05:25 Monocytes 12 % (2-10) H 01/27/18 05:25 Eosinophils 3 % (0-5) 01/27/18 05:25 Basophils 1 % (0-3) 01/23/18 05:40 Platelet Estimate DECREASED PLATELETS (NORMAL) 01/27/18 05:25 Specimen Source Arterial 01/20/18 09:34 Sample Site Left Radial 01/20/18 09:34 pH 7.40 (7.35-7.45) 01/20/18 09:34 pCO2 29.0 mmHg (35.0-45.0) L 01/20/18 09:34 pO2 80.0 mmHg (80.0-100.0) 01/20/18 09:34 HCO3 20.5 mEq/L (20.0-26.0) 01/20/18 09:34 Base Excess -5.6 mEq/L (-3.0-3.0) L 01/20/18 09:34 O2 Saturation 96.0 % (92.0-100.0) 01/20/18 09:34 Baltazar Test YES 01/20/18 09:34 Vent Rate NA 01/20/18 09:34 Inspired O2 21 01/20/18 09:34 Tidal Volume NA 01/20/18 09:34 PEEP NA 01/20/18 09:34 Pressure (ins/psv/peep) NA 01/20/18 09:34 Critical Value E.MULLEN 01/20/18 09:34 Sodium 136 mEq/L (136-145) 01/27/18 05:25 Potassium 3.8 mEq/L (3.5-5.1) 01/27/18 05:25 Chloride 112 mEq/L (98-107) H 01/27/18 05:25 Carbon Dioxide 18.5 mEq/L (21.0-31.0) L 01/27/18 05:25 Anion Gap 9.3 (7.0-16.0) 01/27/18 05:25 BUN 19 mg/dL (7-25) 01/27/18 05:25 Creatinine 1.2 mg/dL (0.7-1.3) 01/27/18 05:25 Est GFR ( Amer) > 60.0 ml/min (>90) 01/27/18 05:25 Est GFR (Non-Af Amer) > 60.0 ml/min 01/27/18 05:25 BUN/Creatinine Ratio 15.8 01/27/18 05:25 Glucose 129 mg/dL (70-105) H D 01/27/18 05:25 POC Glucose 227 MG/DL (70 - 105) H 01/27/18 12:46 Hemoglobin A1c % 10.3 % (4.0-6.0) H 01/18/18 20:51 Calcium 10.7 mg/dL (8.6-10.3) H 01/27/18 05:25 Phosphorus 3.2 mg/dL (2.5-5.0) 01/19/18 12:10 Magnesium 1.6 mg/dL (1.9-2.7) L 01/23/18 05:40 Iron 303 ug/dL (38-169) H 01/20/18 09:45 TIBC 379 ug/dL (250-450) 01/20/18 09:45 Iron Saturation 80 % (15-55) H 01/20/18 09:45 Unsaturated IBC 76 ug/dL (111-343) L 01/20/18 09:45 Ferritin 45 ng/mL (30-400) 01/20/18 09:45 Total Bilirubin 1.6 mg/dL (0.3-1.0) H 01/27/18 05:25 Direct Bilirubin 0.95 mg/dL (0.0-0.2) H 01/20/18 05:30 GGTP 93 IU/L (0-65) H 01/20/18 09:45 AST 69 U/L (13-39) H 01/27/18 05:25 ALT 41 U/L (7-52) 01/27/18 05:25 Alkaline Phosphatase 156 U/L (34-104) H 01/27/18 05:25 Ammonia 102 umol/L (16-53) H 01/27/18 05:25 Creatine Kinase 616 U/L (30-223) H 01/19/18 16:00 CK-MB (CK-2) 10.3 ng/mL (0.6-6.3) H 01/19/18 16:00 Troponin I 0.19 ng/mL (0.01-0.05) H* 01/19/18 16:00 B-Natriuretic Peptide 35.1 pg/mL (5.0-100.0) 01/18/18 23:57 Total Protein 5.7 gm/dL (6.0-8.3) L 01/27/18 05:25 Albumin 2.5 gm/dL (4.2-5.5) L 01/27/18 05:25 Globulin 3.2 gm/dL 01/27/18 05:25 Albumin/Globulin Ratio 0.8 (1.0-1.8) L 01/27/18 05:25 Ceruloplasmin 30.3 mg/dL (16.0-31.0) 01/20/18 09:45 Amylase 148 U/L (29-103) H 01/18/18 20:51 Lipase 179 U/L (11-82) H 01/18/18 20:51 Tumor Marker AFP 2.8 ng/mL (0.0-8.3) 01/24/18 04:10 TSH 3.58 uIU/ml (0.34-5.60) 01/18/18 20:21 PTH Interpretation (()) 01/19/18 12:10 PTH Intact 9 pg/mL (15-65) L 01/19/18 12:10 Calcium (PTH Intact) 11.0 mg/dL (8.7-10.2) H 01/19/18 12:10 Urine Source RANDOM 01/18/18 20:10 Urine Color YELLOW 01/18/18 20:10 Urine Clarity CLEAR (CLEAR) 01/18/18 20:10 Urine pH 7.0 (4.6 - 8.0) 01/18/18 20:10 Ur Specific F[place] 1.010 (1.005-1.030) 01/18/18 20:10 Urine Protein NEGATIVE mg/dL (NEGATIVE) 01/18/18 20:10 Urine Glucose (UA) >=1000 mg/dL (NEGATIVE) H 01/18/18 20:10 Urine Ketones NEGATIVE mg/dL (NEGATIVE) 01/18/18 20:10 Urine Blood SMALL (NEGATIVE) H 01/18/18 20:10 Urine Nitrate NEGATIVE (NEGATIVE) 01/18/18 20:10 Urine Bilirubin NEGATIVE (NEGATIVE) 01/18/18 20:10 Urine Urobilinogen 0.2 E.U./dL (0.2 - 1.0) 01/18/18 20:10 Ur Leukocyte Esterase NEGATIVE (NEGATIVE) 01/18/18 20:10 Urine RBC 2-5 /hpf (0-5) H 01/18/18 20:10 Urine WBC NONE SEEN /hpf (0-5) 01/18/18 20:10 Ur Epithelial Cells NONE SEEN /lpf (FEW) 01/18/18 20:10 Urine Bacteria NONE SEEN /hpf (NONE SEEN) 01/18/18 20:10 Urine Opiates Screen NEGATIVE (NEGATIVE) 01/18/18 20:10 Urine Methadone Screen NEGATIVE (NEGATIVE) 01/18/18 20:10 Acetaminophen < 10.0 ug/mL (10.0-30.0) L 01/20/18 05:30 Ur Barbiturates Screen NEGATIVE (NEGATIVE) 01/18/18 20:10 Ur Tricyclics Screen NEGATIVE (NEGATIVE) 01/18/18 20:10 Ur Phencyclidine Scrn NEGATIVE (NEGATIVE) 01/18/18 20:10 Amphetamines Screen NEGATIVE (NEGATIVE) 01/18/18 20:10 U Methamphetamines Scrn NEGATIVE (NEGATIVE) 01/18/18 20:10 U Benzodiazepines Scrn NEGATIVE (NEGATIVE) 01/18/18 20:10 U Cocaine Metab Screen NEGATIVE (NEGATIVE) 01/18/18 20:10 U Cannabinoids Screen NEGATIVE (NEGATIVE) 01/18/18 20:10 RPR NONREACTIVE (NONREACTIVE) 01/18/18 20:21 Hepatitis A IgM Ab Negative (Negative) 01/20/18 09:45 Hep Bs Antigen Negative (Negative) 01/20/18 09:45 Hep B Core IgM Ab Negative (Negative) 01/20/18 09:45 Hepatitis C Antibody >11.0 s/co ratio (0.0-0.9) H 01/20/18 09:45 - Physical Exam Vitals and I&O: Vital Signs Temp 98.1 F 01/27/18 04:00 Pulse 91 01/27/18 12:26 Resp 27 01/27/18 12:26 BP 125/70 01/27/18 09:53 Pulse Ox 96 01/27/18 12:26 Intake & Output 01/26/18 01/27/18 01/27/18 18:59 06:59 18:59 Intake Total 1250 720 Output Total 400 900 Balance 850 -180 Weight (lbs) 96.162 kg 96.162 kg Intake: Intake, IV Amount 50 100 Piperacillin Sodium/ 50 100 Tazobact 2.25 gm In Sodium Chloride 0.9% 50 ml @ 100 mls/hr IV Q8HR [facility] Rx#:[id number] Oral 1200 620 Output: Urine 400 900 Other: # Voids 3 3 # Bowel Movements 0 3 Active Medications: Current Medications Albuterol/Ipratropium (Duoneb Neb) 3 ml HHN Q6HRT [facility] Stop: 03/20/18 12:59 Last Admin: 01/27/18 12:22 Dose: 3 ml Piperacillin Sod/Tazobactam (Sod 2.25 gm/ Sodium Chloride) 50 mls @ 100 mls/hr IV Q8HR [facility] Stop: 03/20/18 12:59 Last Admin: 01/27/18 12:56 Dose: 100 mls/hr Sodium Chloride (Nacl 0.9%) 500 mls @ 0 mls/hr IV .Q0M [facility] PRN Reason: TKO Stop: 03/22/18 20:14 Last Infusion: 01/22/18 18:00 Dose: 0 mls/hr Norepinephrine Bitartrate 4 mg (/ Dextrose) 254 mls @ 19.05 mls/hr IV TITR PRN ; Protocol; 5 MCG/MIN PRN Reason: BP MAINTENANCE (PER PROTOCOL) Stop: 03/24/18 20:19 Last Titration: 01/24/18 07:38 Dose: Infused Insulin Aspart (Novolog) 0 units SUBQ ACHS [facility] PRN Reason: Protocol Stop: 03/21/18 11:29 Last Admin: 01/27/18 12:54 Dose: 5 units Insulin Detemir (Levemir Insulin) 26 units SUBQ DAILY [facility] PRN Reason: Protocol Stop: 03/27/18 09:52 Last Admin: 01/27/18 10:55 Dose: 26 units Lactobacillus Rhamnosus (Culturelle 15b) 1 each PO DAILY [facility] Stop: 03/22/18 08:59 Last Admin: 01/27/18 09:53 Dose: 1 each Lactulose (Cephulac) 45 gm PO Q2H [facility] Stop: 03/28/18 10:59 Last Admin: 01/27/18 12:56 Dose: 45 gm Lorazepam (Ativan) 1 mg PO Q4HR PRN; Protocol PRN Reason: Anxiety Stop: 03/20/18 10:08 Last Admin: 01/24/18 06:35 Dose: 1 mg Metformin HCl (Glucophage) 850 mg PO BIDWM [facility] Stop: 03/22/18 17:59 Last Admin: 01/27/18 09:48 Dose: 850 mg Metoprolol Tartrate (Lopressor) 25 mg PO DAILY [facility] Stop: 03/27/18 08:59 Last Admin: 01/27/18 09:53 Dose: 25 mg Miscellaneous (Probiotic Screen) 1 ea MC PRN PRN PRN Reason: PROTOCOL Stop: 03/21/18 14:14 Quetiapine Fumarate (Seroquel) 100 mg PO BID [facility] PRN Reason: Protocol Stop: 03/21/18 08:59 Last Admin: 01/27/18 09:56 Dose: 100 mg Rifaximin (Xifaxan) 550 mg PO BID [facility] Stop: 03/20/18 16:59 Last Admin: 01/27/18 09:54 Dose: 550 mg General: Alert, Cooperative HEENT: Atraumatic, PERRLA, EOMI Neck: Supple, JVD Cardiovascular: Regular rate, Normal S1, Normal S2 Lungs: Clear to auscultation Abdomen: Bowel sounds, Soft, Obese Extremities: Other (No edmea,cyanosis,clubbing.) Neurological: Normal gait, Normal speech Skin: Rash Psych/Mental Status: Mental status NL Assessment/Plan - Assessment Assessment: 57 YO MALE WITH ETOH AND HCV CIRRHOSIS HAS HEPATIC ENCEPHALOPATHY THAT IS IMPROVING IRMA SHOWED GALLSTONES BUT HIDA SCAN WAS NEGATIVE - PT IS ASYMPTOMATIC AFP NORMAL 1.CONT XIFAXAN AND LACTULOSE 2.CONSIDER SUKHDEEP IN THE FUTURE IF SYMPTOMATIC 3.WILL NEED OUTPATIENT HEPATOLOGY MANAGEMENT
--- NOTE | 2018-01-27 17:32 | Progress Notes ---
DATE: 01/27/2018 PATIENT'S IDENTIFICATION: A 57-year-old male. SUBJECTIVE: The patient seen and examined. The patient is lying in the bed. The patient is more alert and awake, but not ambulating. The patient's ammonia continues to remain elevated. Upon reviewing the MAR reported, the patient is currently taking lactulose every 6 hours, the dose was increases to every 2 hours. PHYSICAL EXAMINATION: VITAL SIGNS: Temperature 98.1, pulse 97, respiratory rate is 20, and blood pressure 125/70. HEENT: No facial asymmetry. NECK: Supple. No JVD. HEART: Regular. CHEST: Lung equal in expansion. LUNGS: No wheezing, no crackles. ABDOMEN: Soft. Bowel sounds are present. No palpable mass. EXTREMITIES: A +1 edema. AVAILABLE LABORATORY DATA: Has been reviewed. CLINICAL IMPRESSION: 1. Hepatic encephalopathy, improving. 2. Persistent elevated ammonia secondary to cirrhosis of liver. 3. Right lower lobe pneumonia. 4. Thrombocytopenia. 5. Hypertension. 6. Psychotic disorder. 7. Degenerative joint disease. 8. High risk for fall. 9. Debility. PLAN: Increase the patient's lactulose to every 2 hours for now until the patient has adequate bowel movement and get the followup lab as well. The patient is to have continuation of medication for his diabetes as well as cirrhosis of liver. Continue nebulizer treatment as well. The patient's platelets remaining low. I will discontinue the patient's aspirin for now along with Cardizem. Since the patient is already on beta ben, the patient will have followup lab as well and will continue physical therapy and occupational therapy. Continue to follow sales representative consultant's recommendations. Care plan has been reviewed and discussed with assigned nurse as well. JOB# [id number]
[2018-01-28] MEDS: Lactulose 10 Gm/15 mL 30mL UDC PO SCH ×11 (01:05→21:43)
[2018-01-28] MEDS: Albuterol/Ipratropium Neb 3 ML AERS HHN SCH ×4 (02:09→18:48)
[2018-01-28 06:35] LABS: % BASOPHILS 1.5 % (0.0-2.0); % EOSINOPHILS 3.6 % (0.0-5.0); % LYMPHOCYTES 24.3 % (20.0-50.0); % MONOCYTES 13.7 % (2.0-10.0); % NEUTROPHILS 56.9 % (40.0-80.0); BASOPHILE ABSOLUTE 0.1 Th/cumm (0-0.2); EOSINOPHILE ABSOLUTE 0.2 Th/cmm (0.1-0.4); HEMATOCRIT 35.1 % (41.0-60); HEMOGLOBIN 11.7 gm/dL (12-16); LYMPHOCYTE ABSOLUTE 1.6 Th/cmm (1.5-3.0); MEAN CELL VOLUME 81.8 fl (80-99); MEAN CORPUSCULAR HEMOGLOBIN 27.1 pg (26.0-30.0); MEAN CORPUSCULAR HGB CONC 33.2 pg (28.0-36.0); MONOCYTE ABSOLUTE 0.9 Th/cmm (0.3-1.0); NEUTROPHILE ABSOLUTE 3.9 Th/cmm (1.8-8.0); PLATELET COUNT 60 Th/cmm (150-400); RED BLOOD COUNT 4.29 Mil/cmm (4.30-5.70); RED CELL DISTRIBUTION WIDTH 17.4 % (11.5-20.0); WHITE BLOOD COUNT 6.7 Th/cmm (4.8-10.8)
[2018-01-28 07:04] LABS: ALB/GLOB RATIO 0.8 (1.0-1.8); ALBUMIN 2.9 gm/dL (4.2-5.5); ALKALINE PHOSPHATASE 161 U/L (34-104); ANION GAP 3.8 (7.0-16.0); BILIRUBIN,TOTAL 1.6 mg/dL (0.3-1.0); BUN - UREA NITROGEN 17 mg/dL (7-25); CALCIUM SERUM 10.5 mg/dL (8.6-10.3); CARBON DIOXIDE 18.6 mEq/L (21.0-31.0); CHLORIDE 116 mEq/L (98-107); CREATININE - SERUM 1.1 mg/dL (0.7-1.3); GFR AFRICAN-AMERICAN > 60.0 ml/min (>90); GFR NON AFRICAN-AMERICAN > 60.0 ml/min; GLUCOSE 197 mg/dL (70-105); POTASSIUM SERUM 3.4 mEq/L (3.5-5.1); SGOT 77 U/L (13-39); SGPT/ALT 46 U/L (7-52); SODIUM SERUM 135 mEq/L (136-145); TOTAL PROTEIN,SERUM 6.4 gm/dL (6.0-8.3)
--- NOTE | 2018-01-28 08:30 | Progress Notes ---
DATE: 01/28/2018 PSYCHIATRIC PROGRESS NOTE SUBJECTIVE: Chart reviewed and the patient interviewed. Also discussed the patient's condition with the staff and reviewed records and labs. The patient is calm, but he is disheveled. The patient also is trying to interact, but seems to be slightly anxious and confused. He still has flat affect and mood seems to be depressed, but patient in general is calm. Otherwise, he is compliant with taking his medications with no side effects of medications. ASSESSMENT: The patient is calm. TREATMENT PLAN: Continue monitoring his behavior and his condition closely. Also, continue monitoring psychotropic medications and followup. JOB# [id number]
[2018-01-28] MEDS: Lactobacillus Rhamnosus GG 15 Billion CFU CAP.SPRINK PO SCH (08:58)
[2018-01-28] MEDS: Insulin Detemir 100 units/mL 10mL Vial SUBQ SCH (09:01)
[2018-01-28] MEDS: INSULIN ASPART, RECOMBINANT 100 UNITS/ML SUBQ SCH ×4 (09:01→21:46)
--- NOTE | 2018-01-28 10:42 | GI Progress Note ---
Subjective - Review of Systems Subjective: MORE AWAKE DENIES ABD PAIN Objective - Results Result Diagrams: 01/28/18 06:00 01/28/18 06:00 Recent Labs: Laboratory Last Values WBC 6.7 Th/cmm (4.8-10.8) 01/28/18 06:00 RBC 4.29 Mil/cmm (4.30-5.70) L 01/28/18 06:00 Hgb 11.7 gm/dL (12-16) L 01/28/18 06:00 Hct 35.1 % (41.0-60) L 01/28/18 06:00 MCV 81.8 fl (80-99) 01/28/18 06:00 MCH 27.1 pg (26.0-30.0) 01/28/18 06:00 MCHC Differential 33.2 pg (28.0-36.0) 01/28/18 06:00 RDW 17.4 % (11.5-20.0) 01/28/18 06:00 Plt Count 60 Th/cmm (150-400) L 01/28/18 06:00 MPV 9.0 fl 01/28/18 06:00 Neutrophils % 56.9 % (40.0-80.0) 01/28/18 06:00 Band Neutrophils % 1 % (0-10) 01/23/18 05:40 Lymphocytes % 24.3 % (20.0-50.0) 01/28/18 06:00 Monocytes % 13.7 % (2.0-10.0) H 01/28/18 06:00 Eosinophils % 3.6 % (0.0-5.0) 01/28/18 06:00 Basophils % 1.5 % (0.0-2.0) 01/28/18 06:00 Neutrophils (Manual) 62 % (40-80) 01/27/18 05:25 Lymphocytes 23 % (20-50) 01/27/18 05:25 Monocytes 12 % (2-10) H 01/27/18 05:25 Eosinophils 3 % (0-5) 01/27/18 05:25 Basophils 1 % (0-3) 01/23/18 05:40 Platelet Estimate DECREASED PLATELETS (NORMAL) 01/27/18 05:25 Specimen Source Arterial 01/20/18 09:34 Sample Site Left Radial 01/20/18 09:34 pH 7.40 (7.35-7.45) 01/20/18 09:34 pCO2 29.0 mmHg (35.0-45.0) L 01/20/18 09:34 pO2 80.0 mmHg (80.0-100.0) 01/20/18 09:34 HCO3 20.5 mEq/L (20.0-26.0) 01/20/18 09:34 Base Excess -5.6 mEq/L (-3.0-3.0) L 01/20/18 09:34 O2 Saturation 96.0 % (92.0-100.0) 01/20/18 09:34 Baltazar Test YES 01/20/18 09:34 Vent Rate NA 01/20/18 09:34 Inspired O2 21 01/20/18 09:34 Tidal Volume NA 01/20/18 09:34 PEEP NA 01/20/18 09:34 Pressure (ins/psv/peep) NA 01/20/18 09:34 Critical Value E.MULLEN 01/20/18 09:34 Sodium 135 mEq/L (136-145) L 01/28/18 06:00 Potassium 3.4 mEq/L (3.5-5.1) L 01/28/18 06:00 Chloride 116 mEq/L (98-107) H 01/28/18 06:00 Carbon Dioxide 18.6 mEq/L (21.0-31.0) L 01/28/18 06:00 Anion Gap 3.8 (7.0-16.0) L 01/28/18 06:00 BUN 17 mg/dL (7-25) 01/28/18 06:00 Creatinine 1.1 mg/dL (0.7-1.3) 01/28/18 06:00 Est GFR ( Amer) > 60.0 ml/min (>90) 01/28/18 06:00 Est GFR (Non-Af Amer) > 60.0 ml/min 01/28/18 06:00 BUN/Creatinine Ratio 15.5 01/28/18 06:00 Glucose 197 mg/dL (70-105) H 01/28/18 06:00 POC Glucose 198 MG/DL (70 - 105) H 01/28/18 07:30 Hemoglobin A1c % 10.3 % (4.0-6.0) H 01/18/18 20:51 Calcium 10.5 mg/dL (8.6-10.3) H 01/28/18 06:00 Phosphorus 3.2 mg/dL (2.5-5.0) 01/19/18 12:10 Magnesium 1.6 mg/dL (1.9-2.7) L 01/23/18 05:40 Iron 303 ug/dL (38-169) H 01/20/18 09:45 TIBC 379 ug/dL (250-450) 01/20/18 09:45 Iron Saturation 80 % (15-55) H 01/20/18 09:45 Unsaturated IBC 76 ug/dL (111-343) L 01/20/18 09:45 Ferritin 45 ng/mL (30-400) 01/20/18 09:45 Total Bilirubin 1.6 mg/dL (0.3-1.0) H 01/28/18 06:00 Direct Bilirubin 0.95 mg/dL (0.0-0.2) H 01/20/18 05:30 GGTP 93 IU/L (0-65) H 01/20/18 09:45 AST 77 U/L (13-39) H 01/28/18 06:00 ALT 46 U/L (7-52) 01/28/18 06:00 Alkaline Phosphatase 161 U/L (34-104) H 01/28/18 06:00 Ammonia 101 umol/L (16-53) H 01/28/18 06:00 Creatine Kinase 616 U/L (30-223) H 01/19/18 16:00 CK-MB (CK-2) 10.3 ng/mL (0.6-6.3) H 01/19/18 16:00 Troponin I 0.19 ng/mL (0.01-0.05) H* 01/19/18 16:00 B-Natriuretic Peptide 35.1 pg/mL (5.0-100.0) 01/18/18 23:57 Total Protein 6.4 gm/dL (6.0-8.3) 01/28/18 06:00 Albumin 2.9 gm/dL (4.2-5.5) L 01/28/18 06:00 Globulin 3.5 gm/dL 01/28/18 06:00 Albumin/Globulin Ratio 0.8 (1.0-1.8) L 01/28/18 06:00 Ceruloplasmin 30.3 mg/dL (16.0-31.0) 01/20/18 09:45 Amylase 148 U/L (29-103) H 01/18/18 20:51 Lipase 179 U/L (11-82) H 01/18/18 20:51 Tumor Marker AFP 2.8 ng/mL (0.0-8.3) 01/24/18 04:10 TSH 3.58 uIU/ml (0.34-5.60) 01/18/18 20:21 PTH Interpretation (()) 01/19/18 12:10 PTH Intact 9 pg/mL (15-65) L 01/19/18 12:10 Calcium (PTH Intact) 11.0 mg/dL (8.7-10.2) H 01/19/18 12:10 Urine Source RANDOM 01/18/18 20:10 Urine Color YELLOW 01/18/18 20:10 Urine Clarity CLEAR (CLEAR) 01/18/18 20:10 Urine pH 7.0 (4.6 - 8.0) 01/18/18 20:10 Ur Specific [place] 1.010 (1.005-1.030) 01/18/18 20:10 Urine Protein NEGATIVE mg/dL (NEGATIVE) 01/18/18 20:10 Urine Glucose (UA) >=1000 mg/dL (NEGATIVE) H 01/18/18 20:10 Urine Ketones NEGATIVE mg/dL (NEGATIVE) 01/18/18 20:10 Urine Blood SMALL (NEGATIVE) H 01/18/18 20:10 Urine Nitrate NEGATIVE (NEGATIVE) 01/18/18 20:10 Urine Bilirubin NEGATIVE (NEGATIVE) 01/18/18 20:10 Urine Urobilinogen 0.2 E.U./dL (0.2 - 1.0) 01/18/18 20:10 Ur Leukocyte Esterase NEGATIVE (NEGATIVE) 01/18/18 20:10 Urine RBC 2-5 /hpf (0-5) H 01/18/18 20:10 Urine WBC NONE SEEN /hpf (0-5) 01/18/18 20:10 Ur Epithelial Cells NONE SEEN /lpf (FEW) 02/27/18 20:10 Urine Bacteria NONE SEEN /hpf (NONE SEEN) 01/18/18 20:10 Urine Opiates Screen NEGATIVE (NEGATIVE) 01/18/18 20:10 Urine Methadone Screen NEGATIVE (NEGATIVE) 01/18/18 20:10 Acetaminophen < 10.0 ug/mL (10.0-30.0) L 01/20/18 05:30 Ur Barbiturates Screen NEGATIVE (NEGATIVE) 01/18/18 20:10 Ur Tricyclics Screen NEGATIVE (NEGATIVE) 01/18/18 20:10 Ur Phencyclidine Scrn NEGATIVE (NEGATIVE) 01/18/18 20:10 Amphetamines Screen NEGATIVE (NEGATIVE) 01/18/18 20:10 U Methamphetamines Scrn NEGATIVE (NEGATIVE) 01/18/18 20:10 U Benzodiazepines Scrn NEGATIVE (NEGATIVE) 01/18/18 20:10 U Cocaine Metab Screen NEGATIVE (NEGATIVE) 01/18/18 20:10 U Cannabinoids Screen NEGATIVE (NEGATIVE) 01/18/18 20:10 RPR NONREACTIVE (NONREACTIVE) 01/18/18 20:21 Hepatitis A IgM Ab Negative (Negative) 01/20/18 09:45 Hep Bs Antigen Negative (Negative) 01/20/18 09:45 Hep B Core IgM Ab Negative (Negative) 01/20/18 09:45 Hepatitis C Antibody >11.0 s/co ratio (0.0-0.9) H 01/20/18 09:45 - Physical Exam Vitals and I&O: Vital Signs Temp 98.7 F 01/28/18 04:00 Pulse 101 01/28/18 08:58 Resp 18 01/28/18 07:54 BP 147/103 01/28/18 08:58 Pulse Ox 98 01/28/18 07:54 Intake & Output 01/27/18 01/28/18 01/28/18 18:59 06:59 18:59 Intake Total 50 50 Balance 50 50 Intake: Intake, IV Amount 50 50 Piperacillin Sodium/ 50 50 Tazobact 2.25 gm In Sodium Chloride 0.9% 50 ml @ 100 mls/hr IV Q8HR [facility] Rx#:[id number] Other: Stool Characteristics Liquid Active Medications: Current Medications Albuterol/Ipratropium (Duoneb Neb) 3 ml HHN Q6HRT [facility] Stop: 03/20/18 12:59 Last Admin: 01/28/18 07:52 Dose: 3 ml Piperacillin Sod/Tazobactam (Sod 2.25 gm/ Sodium Chloride) 50 mls @ 100 mls/hr IV Q8HR [facility] Stop: 03/20/18 12:59 Last Admin: 01/28/18 07:35 Dose: 100 mls/hr Sodium Chloride (Nacl 0.9%) 500 mls @ 0 mls/hr IV .Q0M [facility] PRN Reason: TKO Stop: 03/22/18 20:14 Last Infusion: 01/22/18 18:00 Dose: 0 mls/hr Norepinephrine Bitartrate 4 mg (/ Dextrose) 254 mls @ 19.05 mls/hr IV TITR PRN ; Protocol; 5 MCG/MIN PRN Reason: BP MAINTENANCE (PER PROTOCOL) Stop: 03/24/18 20:19 Last Titration: 01/24/18 07:38 Dose: Infused Insulin Aspart (Novolog) 0 units SUBQ ACHS [facility] PRN Reason: Protocol Stop: 03/21/18 11:29 Last Admin: 01/28/18 09:01 Dose: 2 units Insulin Detemir (Levemir Insulin) 26 units SUBQ DAILY [facility] PRN Reason: Protocol Stop: 03/27/18 09:52 Last Admin: 01/28/18 09:01 Dose: 26 units Lactobacillus Rhamnosus (Culturelle 15b) 1 each PO DAILY [facility] Stop: 03/22/18 08:59 Last Admin: 01/28/18 08:58 Dose: 1 each Lactulose (Cephulac) 45 gm PO Q2H [facility] Stop: 03/28/18 10:59 Last Admin: 01/28/18 08:59 Dose: 45 gm Lorazepam (Ativan) 1 mg PO Q4HR PRN; Protocol PRN Reason: Anxiety Stop: 03/20/18 10:08 Last Admin: 01/24/18 06:35 Dose: 1 mg Metformin HCl (Glucophage) 850 mg PO BIDWM [facility] Stop: 03/22/18 17:59 Last Admin: 01/28/18 07:34 Dose: 850 mg Metoprolol Tartrate (Lopressor) 25 mg PO DAILY [facility] Stop: 03/27/18 08:59 Last Admin: 01/28/18 08:58 Dose: 25 mg Miscellaneous (Probiotic Screen) 1 ea [facility] PRN PRN PRN Reason: PROTOCOL Stop: 03/21/18 14:14 Quetiapine Fumarate (Seroquel) 100 mg PO BID [facility] PRN Reason: Protocol Stop: 03/21/18 08:59 Last Admin: 01/28/18 08:58 Dose: 100 mg Rifaximin (Xifaxan) 550 mg PO BID [facility] Stop: 03/20/18 16:59 Last Admin: 01/28/18 08:57 Dose: 550 mg General: Alert, Cooperative HEENT: Atraumatic, PERRLA, EOMI Neck: Supple, JVD Cardiovascular: Regular rate, Normal S1, Normal S2 Lungs: Clear to auscultation Abdomen: Bowel sounds, Soft, Obese Extremities: Other (No edmea,cyanosis,clubbing.) Neurological: Normal gait, Normal speech Skin: Rash Psych/Mental Status: Mental status NL Assessment/Plan - Assessment Assessment: 57 YO MALE WITH ETOH AND HCV CIRRHOSIS HAS HEPATIC ENCEPHALOPATHY THAT IS IMPROVING IRMA SHOWED GALLSTONES BUT HIDA SCAN WAS NEGATIVE - PT IS ASYMPTOMATIC AFP NORMAL 1.CONT XIFAXAN AND LACTULOSE 2.CONSIDER SUKHDEEP IN THE FUTURE IF SYMPTOMATIC 3.WILL NEED OUTPATIENT HEPATOLOGY MANAGEMENT
[2018-01-28] MEDS ORDERED: Potassium Chloride 20 mEq ER Tab PO ONE (16:04)
--- NOTE | 2018-01-28 23:04 | Progress Notes ---
DATE: 01/28/2018 SUBJECTIVE: The patient seen and examined. The patient is lying in the bed. The patient is more alert and awake. According to the nurse, the patient did have 4 bowel movements. The patient's ammonia level is 101. The patient currently looks more alert and awake. His platelet count has improved. The patient is currently improving. The patient currently denies any chest pain or shortness of breath. PHYSICAL EXAMINATION: VITAL SIGNS: Temperature 98.7, pulse is 100, respiratory 18, blood pressure 137/88. HEENT: No facial asymmetry. NECK: Supple, no JVD. HEART: Regular. CHEST: Lung equal in expansion, no expiratory wheezing. ABDOMEN: Soft. No guarding, no rigidity. Bowel sounds are present. No palpable mass. EXTREMITIES: Trace edema noted. AVAILABLE DIAGNOSTIC DATA: Hemoglobin of 11.7, platelet count of 60. White count of 6.7. BUN and creatinine is 17 and 1.1, potassium, 3.4, chloride 116, sodium 135, calcium of 10.5. AST and ALT is 77 and 46 and alkaline phosphatase is 161. Ammonia 101. CLINICAL IMPRESSION: 1. Hepatic encephalopathy. 2. Generalized debility. 3. Thrombocytopenia. 4. Right lower lobe pneumonia. 5. Cirrhosis of liver. 6. Psychotic disorder. 7. Degenerative joint disease. 8. Debility. 9. Decline in self-care and mobility. PLAN: 1. Lactulose. 2. PT, OT. 3. Antibiotic. 4. Diabetes management. 5. Fall precautions. 6. Psych medication. 7. General nursing care. 8. Follow lab. 9. Follow consult recommendation. 10. Care plan reviewed and discussed with staff. JOB# [id number]
[2018-01-29] MEDS: Lactulose 10 Gm/15 mL 30mL UDC PO SCH ×12 (00:59→19:00)
[2018-01-29] MEDS: Albuterol/Ipratropium Neb 3 ML AERS HHN SCH ×3 (01:37→13:55)
[2018-01-29 06:21] LABS: % BASOPHILS 0.5 % (0.0-2.0); % EOSINOPHILS 4.9 % (0.0-5.0); % LYMPHOCYTES 26.3 % (20.0-50.0); % MONOCYTES 11.9 % (2.0-10.0); % NEUTROPHILS 56.4 % (40.0-80.0); EOSINOPHILE ABSOLUTE 0.3 Th/cmm (0.1-0.4); HEMATOCRIT 32.4 % (41.0-60); HEMOGLOBIN 10.8 gm/dL (12-16); LYMPHOCYTE ABSOLUTE 1.7 Th/cmm (1.5-3.0); MEAN CELL VOLUME 82.5 fl (80-99); MEAN CORPUSCULAR HEMOGLOBIN 27.6 pg (26.0-30.0); MEAN CORPUSCULAR HGB CONC 33.4 pg (28.0-36.0); MEAN PLATELET VOLUME 8.6 fl; MONOCYTE ABSOLUTE 0.7 Th/cmm (0.3-1.0); NEUTROPHILE ABSOLUTE 3.6 Th/cmm (1.8-8.0); PLATELET COUNT 48 Th/cmm (150-400); RED BLOOD COUNT 3.93 Mil/cmm (4.30-5.70); RED CELL DISTRIBUTION WIDTH 17.2 % (11.5-20.0); WHITE BLOOD COUNT 6.3 Th/cmm (4.8-10.8)
[2018-01-29 06:29] LABS: ANION GAP 10.9 (7.0-16.0); BUN - UREA NITROGEN 13 mg/dL (7-25); CALCIUM SERUM 10.1 mg/dL (8.6-10.3); CARBON DIOXIDE 16.6 mEq/L (21.0-31.0); CHLORIDE 118 mEq/L (98-107); GFR AFRICAN-AMERICAN > 60.0 ml/min (>90); GFR NON AFRICAN-AMERICAN > 60.0 ml/min; GLUCOSE 187 mg/dL (70-105); POTASSIUM SERUM 3.5 mEq/L (3.5-5.1); SODIUM SERUM 142 mEq/L (136-145)
[2018-01-29] MEDS: INSULIN ASPART, RECOMBINANT 100 UNITS/ML SUBQ SCH ×3 (08:41→17:18)
[2018-01-29] MEDS: Insulin Detemir 100 units/mL 10mL Vial SUBQ SCH (08:42)
[2018-01-29] MEDS: Lactobacillus Rhamnosus GG 15 Billion CFU CAP.SPRINK PO SCH (09:26)
--- NOTE | 2018-01-29 16:04 | History & Physical ---
ADMIT DATE: 01/29/2018 PATIENT'S IDENTIFICATION: A 57-year-old male. HISTORY OF PRESENT ILLNESS: The patient was seen and examined. The patient is alert, awake, oriented, lying in the bed. The patient is eating fairly well. The patient did have multiple bowel movements. The ammonia level has decreased to 93. The patient does not have any suicidal or homicidal ideation. The patient remained hemodynamically stable. Hemoglobin is remote at 11.7. The platelet count is running always low, today 60,000. With this, the patient's potassium is 3.4 as well. On further questioning, the patient denies any chest pain, shortness of breath, palpitation, dizziness, nausea. Discussed with nursing staff. There is no reported new event noted as well. PHYSICAL EXAMINATION: VITAL SIGNS: On exam, temperature 97.4, pulse 99, respiratory is 18 and blood pressure 134/84. HEENT: No facial asymmetry. NECK: Supple. No JVD, no lymphadenopathy or thyromegaly. HEART: Both heart sounds are regular. CHEST: Lung equal in expansion. No wheezing, no crackles. ABDOMEN: Soft. No guarding, no rigidity. Liver, spleen palpable. No palpable mass. EXTREMITIES: Trace edema. No calf tenderness. NEUROLOGIC: Alert, awake, follows commands. Decreased power throughout the upper and lower is noted. AVAILABLE DIAGNOSTIC DATA: Has been reviewed. CLINICAL IMPRESSION: 1. Altered mental status secondary to hepatic encephalopathy significantly improved. 2. Chronic thrombocytopenia secondary to cirrhosis of liver. 3. Right lower lobe pneumonia, status post completed antibiotic. 4. Psychotic disorder. 5. Diabetes mellitus. 6. Degenerative joint disease. 7. Debility. 8. Cholelithiasis with a normal HIDA scan. 9. History of coronary artery disease and bypass graft. 10. Asthma, chronic obstructive pulmonary disease. 11. History of cirrhosis of liver. 12. Generalized debility. PLAN: The patient looks clinically stable at this time. The patient is well. All medical illnesses are well compensated. The patient can receive the same care, the lower level of care along with rehabilitation. I have discharged this patient with the current medication as well except discontinuation of IV antibiotic. The patient will be followed by his primary care physician in a alf. JOB# [id number]
--- NOTE | 2018-01-29 19:18 | Discharge Summary ---
DATE OF DISCHARGE: 01/29/2018 PRINCIPAL DIAGNOSES: 1. Altered mental status secondary to hepatic encephalopathy. 2. Right lower lobe pneumonia. 3. Cirrhosis of liver. 4. Hepatitis C. 5. Asthma, chronic obstructive pulmonary disease. 6. Psychotic disorder. 7. Hypertension. 8. Chronic thrombocytopenia secondary to cirrhosis of liver. 9. Coronary artery disease, status post bypass graft. 10. Degenerative joint disease. 11. Debility. 12. Decline in self-care and mobility. 13. Long-term insulin therapy. BRIEF STATEMENT FOR THE REASON FOR ADMISSION: The patient was transferred from [facility] to [facility] Emergency Room for evaluation of aggressive behavior. When the patient was arrived in the Emergency Room, the patient was noted to have altered mental status with significant lab abnormality. The patient was advised to be admitted to medical floor. Please refer to my dictated H and P for further information. HOSPITAL COURSE: The patient was admitted to telemetry unit. When I evaluated the patient, ammonia level was checked, which was more than 200. The patient was given NG tube and lactulose was given. The patient was transferred to subsequently to ICU as well. The patient did have a slightly elevated troponin with history of coronary artery disease. Cardiology consultation was also requested. The patient was also seen by GI as well as the psychiatrist. The patient did have workup and noted to have cholelithiasis. HIDA scan was done, which was normal. The patient did require the psychotropic medicine at the time, but the patient remained very cooperative when patient's mental status started to improve. The patient was placed on p.o. diet, which was subsequently advanced to as tolerated as well. The patient's ammonia level was continued to remain elevated in spite of lactulose and it was noted that the patient was refusing multiple attempts. After talking to the patient and the patient was started to take lactulose and the patient's ammonia level decreased to 93. The patient was alert, awake, oriented to time, place, person. The patient really wanted to go home as well. The patient did receive 10 days of IV antibiotic. The patient did remain hemodynamically stable. The patient was not suicidal or homicidal and the patient was extremely cooperative. Decision was made that the patient should be transferred back to snf. The patient is discharged to snf in stable condition with the patient is followed by his primary care physician. At the time of discharge, all of his meds were reconciliated. JOB# [id number]
== END 2018-01-29 19:51 | disposition home or self-care (01) | DRG 441 ==
LOC: ER 19:27 → TELE 01-19 00:55 → ICU 01-19 13:00 → MSI 01-23 00:55 → ICU 01-23 20:40 → MSI 01-25 17:05
PROVIDERS: ADMIT Internal Medicine; ATTEND Internal Medicine
DX: K72.90 Hepatic failure, unspecified without coma (principal); E11.00 Type 2 diabetes mellitus with hyperosmolarity without nonketotic hyperglycemic-hyperosmolar coma (NKHHC); J18.1 Lobar pneumonia, unspecified organism; D69.59 Other secondary thrombocytopenia; I11.0 Hypertensive heart disease with heart failure; I95.2 Hypotension due to drugs; E83.52 Hypercalcemia; E11.65 Type 2 diabetes mellitus with hyperglycemia; M62.82 Rhabdomyolysis; E87.1 Hypo-osmolality and hyponatremia; J44.0 Chronic obstructive pulmonary disease with (acute) lower respiratory infection; K70.30 Alcoholic cirrhosis of liver without ascites; J44.9 Chronic obstructive pulmonary disease, unspecified; F29 Unspecified psychosis not due to a substance or known physiological condition; B19.20 Unspecified viral hepatitis C without hepatic coma; F41.9 Anxiety disorder, unspecified; R53.81 Other malaise; I25.118 Atherosclerotic heart disease of native coronary artery with other forms of angina pectoris; M19.90 Unspecified osteoarthritis, unspecified site; K80.20 Calculus of gallbladder without cholecystitis without obstruction; T50.995A Adverse effect of other drugs, medicaments and biological substances, initial encounter; Z95.1 Presence of aortocoronary bypass graft; Y92.89 Other specified places as the place of occurrence of the external cause; Z79.4 Long term (current) use of insulin; Z79.899 Other long term (current) drug therapy; Z91.81 History of falling
CPT/HCPCS: 36415-UA; 36600-90; 71045-TC; 76700-TC; 78226-TC; 80048-TC; 80053-TC; 80074-90; 80307; 80329-TC; 81001-TC; 82105-90; 82140-TC; 82150-TC; 82248-TC; 82310-90; 82390-90; 82550-TC; 82553; 82728-90; 82803-TC; 82948-90; 82977-90; 83036-90; 83540-90; 83550-90; 83690-TC; 83735-TC; 83880-TC; 83970-90; 84100-TC; 84443-TC; 84484-TC; 85007-TC; 85025-TC; 85027-TC; 86592-TC; 90784; 93005; 94640; 94760; 96374; 97530; A9537; J0360; J1200; J1630; J1815; J2060; J2543; J3475; J7030; J7040; J7042; X3904; X6452; Z7610